=== PATIENT | female | born 1980 | race Caucasian/White ===

== ENCOUNTER 2017-08-07 11:07 | Emergency (ER) | payer OTHER ==
[~2017-08-07] VITALS: Ht 160 cm; Wt 64.4 kg
--- NOTE | 2017-08-07 11:07 | NUR ---
Patient was BIBA and taken to bed 03 via gurney per EMS.
[2017-08-07 11:10] VITALS: BP 110/60
--- NOTE | 2017-08-07 11:10 | NUR ---
37 F BIBA FROM HOME W/5150 HOLD PER [facility] CRISIS TEAM FOR GRAVELY DISABLED ADULT; PT IS CALM AND COOPERATIVE AT THIS TIME; PT IS DISCHEVLED; PT DENIES ANY PLANS TO HURT HER SELF OR OTHERS; PT IS AOX2 TO NAME AND PLACE BUT NOT SITUATION/DATE; PT TALKING IN FULL SENTENCES; PT DENIES ANY FEVER, CP, SOB, OR COUGH AT THIS TIME; PATIENT STATES PAIN OF 0/10 AT THIS TIME; VSS; PATIENT POSITIONED FOR COMFORT; HOB ELEVATED; PT PLACED IN GOWN; PT'S BELONGINGS REMOVED AND STORED BY SECURITY; [address]; SITTER BY BEDSIDE; WILL CONTINUE TO MONITOR; ER MD MADE AWARE OF PT STATUS.
--- NOTE | 2017-08-07 11:10 | NUR ---
PT 'S SKIN IS INTACT
--- NOTE | 2017-08-07 11:58 | NUR ---
Dr. Amezquita evaluating patient at bedside.
--- NOTE | 2017-08-07 12:10 | NUR ---
PATIENT RESTING LAYING SUPINE IN GURNEY; NAD; RR ARE EVEN AND UNLABORED; PT IS CALM AND COOPERATIVE; [address]; SITTER BY BEDSIDE; WILL CONTINUE TO MONITOR
--- NOTE | 2017-08-07 12:50 | NUR ---
PT TO CT VIA [facility].
--- NOTE | 2017-08-07 13:07 | NUR ---
PT RETURNED FROM CT VIA [facility]URTRISH ACCOMPANITED BY ELECTRIC SHOVEL OPERATOR WITHOUT INCIDENT
[2017-08-07] MEDS ORDERED: NACL 0.9% 1,000 ML IV ONE (13:45)
--- NOTE | 2017-08-07 14:40 | NUR ---
SPOKE TO SHEILA FROM [facility]; SHE STATED PT IS ACCEPTED BY MD RIVERA; WILL ARRANGE TRANSPORT
--- NOTE | 2017-08-07 15:00 | NUR ---
Patient to be transferred to [facility]. Is being transferred due to higher level of care. Receiving facility has accepting physician and available space. ER physician has signed transfer form. Patient or responsible constitution party has agreed to transfer and signed form. Patient belongings inventoried and will be sent with patient. Copy of nursing notes, lab reports, EKG, Physicians Orders and X-rays to be sent with patient. Report called to [place] at receiving facility. [facility] ambulance service has been called for transfer. ETA is 45 mins.
--- NOTE | 2017-08-07 15:07 | NUR ---
PATIENT RESTING WITH EYES CLOSED IN GURNEY; NAD; RR ARE EVEN AND UNLABORED; [address]; SITTER BY BEDSIDE; WILL CONTINUE TO MONITOR
[2017-08-07 15:48] VITALS: BP 103/73
--- NOTE | 2017-08-07 15:48 | NUR ---
PT LEFT ER VIA [facility] WITH [facility] BLS; PT BEING TRANSFERRED TO [facility]; PT STABLE; NAD; VSS.
== END 2017-08-07 15:48 | disposition short-term general hospital (02) ==
LOC: MED 11:07
DX: F23 Brief psychotic disorder (principal); E86.0 Dehydration; E11.9 Type 2 diabetes mellitus without complications
CPT/HCPCS: 36415; 70450; 80053; 80305; 81001; 84702; 85025; 93005; 96360; 96361; 99285; G0480; G0482; J7030

== ENCOUNTER 2019-02-08 07:19 | Inpatient (IN) | payer OTHER ==
[~2019-02-08] VITALS: Ht 152.4 cm; Wt 72.6 kg
[2019-02-08] VITALS (27 sets, daily range): BP systolic 96–132; BP diastolic 48–112
--- NOTE | 2019-02-08 07:19 | NUR ---
Patient BIBA ACLS accompanied by Albino ESCOBAR, transferred to bed 10. RN evaluating patient at bedside.
[2019-02-08] MEDS ORDERED: LORazepam 2 MG/ML VIAL ONE ×2 (07:33→07:46)
--- NOTE | 2019-02-08 07:44 | NUR ---
PATIENT PRESENTS TO ED WITH BROUGHT IN BY EMS FROM HOME REPEATED SEIZURES, DENIES PRIOR TRAUMA AT ONSET OF SEIZURE GROUND LEVEL FALL UPON SEIZURE. NO HEMATOMA OR LACERATIONS NOTED AND/OR PALPATED TO SCALP MOVING ALL EXTREMITIES EQUALLY --PUPILS 3 EQUAL AND REACTIVE TO LIGHT SIDE RAILS PADDED --MD AT BEDSIDE . DENIES N/V/D; LUNGS CLEAR BL; HR EVEN AND REGULAR; PT DENIES ANY FEVER, CP, SOB, OR COUGH AT THIS TIME; PATIENT STATES PAIN OF 0/10 AT THIS TIME; VSS; PATIENT POSITIONED FOR COMFORT; HOB ELEVATED; BEDRAILS UP X2; BED DOWN. ER MD MADE AWARE OF PT STATUS.
[2019-02-08] MEDS ORDERED: KETAMINE 10 MG/ML UD SYR **ER IVP ONE ×2 (07:50→08:01)
[2019-02-08] MEDS ORDERED: ROCURONIUM 50 MG/5 ML VIAL IV ONE ×2 (07:50→08:00)
--- NOTE | 2019-02-08 07:53 | NUR ---
Dr. Chahal, RN and RT at bedside for endotracheal intubation.
--- NOTE | 2019-02-08 08:00 | NUR ---
PT INTUBATED BY DR. GRANDA; RT AT BEDSIDE; [facility] HOG STOMACH PREPARER CXR CALLED FOR POST INTUBATION FILM
--- NOTE | 2019-02-08 08:03 | NUR ---
medical technologist chief at bedside for post intubation CXR.
[2019-02-08] MEDS ORDERED: fentaNYL 1 MG in NACL 0.9% 80 ML IV PRN (08:05)
[2019-02-08] MEDS ORDERED: PIPERACILLIN/TAZOBACTAM 3.375 GM in DEXTROSE 5% 50 ML IV ONE (08:05)
[2019-02-08] MEDS ORDERED: VANCOMYCIN 1,000 MG in DEXTROSE 5% 250 ML IV ONE (08:05)
--- NOTE | 2019-02-08 08:06 | NUR ---
WALKED URINE SAMPLE TO LAB, HANDED SAMPLE TO LAB PERSONEL
[2019-02-08] MEDS ORDERED: fentaNYL 0.05 MG/ML VIAL ONE (08:12)
[2019-02-08] MEDS ORDERED: MIDAZOLAM 2 MG/2 ML VIAL ONE (08:14)
[2019-02-08 08:16] LABS: BARBITURATE, URINE NEG. ng/ml (NEG <=200); BENZODIAZEPINE, URINE NEG. ng/mL (NEG <=200); CANNABINOID, URINE NEG. ng/mL (NEG <=50); COCAINE, URINE NEG. ng/mL (NEG <=300); OPIATE, URINE NEG. ng/mL (NEG <=2000); PHENCYCLIDINE SCREEN,URINE NEG. ng/mL (NEG <=25)
[2019-02-08 08:21] LABS: APPEARANCE,URINE CLEAR (CLEAR); BILIRUBIN,URINE NEGATIVE (NEGATIVE); BLOOD, URINE NEGATIVE (NEGATIVE); COLOR,URINE YELLOW (YELLOW); LEUKOCYTE ESTERASE ,URINE NEGATIVE (NEGATIVE); NITRITE, URINE NEGATIVE (NEGATIVE); PH,URINE 6.5 (5.0-9.0); UGLUCOSE NEGATIVE (NEGATIVE)
[2019-02-08 08:31] LABS: BASOPHILS % (AUTO) 0.3 % (0.0-2.0); EOSINOPHILS % (AUTO) 0.2 % (0.0-4.0); HEMATOCRIT 36.8 % (36-48); HEMOGLOBIN 12.7 g/dL (12.0-16.0); LYMPHOCYTES # (AUTO) 1.4 K/uL (2.5-16.5); LYMPHOCYTES % (AUTO) 11.4 % (20.5-51.1); MEAN CORPUSCULAR HEMOGLOBIN 30 pg (27-31); MEAN CORPUSCULAR HGB CONC 35 g/dL (33-37); MEAN CORPUSCULAR VOLUME 86.1 fL (80-94); MONOCYTES # (AUTO) 0.5 K/uL (0.8-1.0); MONOCYTES % (AUTO) 3.8 % (1.7-9.3); NEUTROPHILS # (AUTO) 10.2 K/uL (1.8-7.7); NEUTROPHILS % (AUTO) 84.3 % (42.2-75.2); PLATELET COUNT (AUTO) 378 K/uL (140-450); RED BLOOD CELL COUNT(AUTO) 4.27 MIL/uL (4.20-5.40); RED CELL DISTRIBUTION WIDTH 12.4 % (11.6-13.7); WHITE BLOOD COUNT (AUTO) 12.1 K/uL (4.8-10.8)
[2019-02-08 08:38] LABS: RBC,URINE 0-5 /HPF (0-5); WBC,URINE 0-5 /HPF (0-5)
[2019-02-08] MEDS: MIDAZOLAM MDV 50 MG in NACL 0.9% 40 ML IV PRN ×2 (08:40→14:47)
[2019-02-08] MEDS ORDERED: VANCOMYCIN 1,000 MG VIAL ONE (08:51)
[2019-02-08] MEDS ORDERED: PIPERACILLIN/TAZOBACTAM 3.375 GM VIAL IV ONE (08:51)
--- NOTE | 2019-02-08 08:55 | NUR ---
PT TO CT VIA [facility] RT, LICENSED THERAPIST, EMT, RN REMAINED MONITORED
[2019-02-08 09:01] LABS: ALBUMIN 3.8 g/dL (3.4-5.0); ANION GAP 19.4 (8-16); CARBON DIOXIDE 16.7 mmol/L (21-32); CREATININE 0.6 mg/dL (0.6-1.3); POTASSIUM 3.1 mmol/L (3.5-5.1); TOTAL BILIRUBIN 0.5 mg/dL (0.0-1.0)
[2019-02-08 09:08] LABS: PROTHROMBIN TIME 10.4 secs (10.8-13.4)
[2019-02-08] MEDS ORDERED: NACL 3% 100 ML IV ONE (09:10)
--- NOTE | 2019-02-08 09:13 | NUR ---
Patient returned from CT scan. RN re-evaluating patient at bedside.
[2019-02-08] MEDS ORDERED: NACL 3% 100 ML IV SCH (09:14)
[2019-02-08] MEDS ORDERED: PHENYTOIN 1,000 MG in NACL 0.9% 100 ML IV SCH (09:15)
[2019-02-08] MEDS ORDERED: NACL 0.9% 1,000 ML IV ONE (09:55)
--- NOTE | 2019-02-08 10:09 | NUR ---
CURRENTLY ON VERSED 6MG/HR, FENTANYL 60MCG/HR AIRWAY PROTECTED BY ETT; NO GRIMACE TO MACE NOT BREATHING OVER MACHINE AT THIS TIME BUE SOFT RESTRAINTS---CONTINUOUS MONITORING IN PLACE
[2019-02-08] MEDS ORDERED: ACETAMINOPHEN 325 MG TAB PO PRN (10:10)
[2019-02-08] MEDS ORDERED: HYDROcodone/APAP 7.5/325 MG 1 TAB PO PRN (10:10)
[2019-02-08] MEDS ORDERED: ONDANSETRON 4 MG/2 ML VIAL IVP PRN (10:10)
--- NOTE | 2019-02-08 10:42 | NUR ---
Pt transferred to ICU via [facility] 2 REPORT GIVEN TO REBECCA SUBRAMANIAN--
--- NOTE | 2019-02-08 10:50 | NUR ---
RECEIVED PATIENT FROM ASSOCIATE PROFESSOR OF LAW, BILL, FOR CONTINUITY OF CARE. PATIENT IS SEDATED W/ FENTANYL AND VERSED. SKIN IS INTACT, WARM, DRY. PATIENT HAS PERIPHERAL IV SITE TO R. HAND, 20 GAUGE AND R. AC, 20 GAUGE, ASYMPTOMATIC, PATENT, GOOD BLOOD RETURN. PATIENT HAS ETT TO VENT, SETTINGS ARE AC 12, FIO2 28%, VT 450, PEEP 5, BREATHING EVEN AND UNLABORED. PATIENT IS SR ON MONITOR, FLACC 0. PATIENT HAS LEAL CATHETER IN PLACE TO CLEAR YELLOW URINE. HOB 30 DEGREES, SAFETY ALARMS AND PRECAUTIONS ASSESSED AND IN PLACE. NO SIGNS OF DISTRESS AT THIS TIME, WILL CONTINUE TO MONITOR
--- NOTE | 2019-02-08 10:55 | NUR ---
DR. MONTEJO IS HERE TO SEE PATIENT, DISCUSSED PLAN OF CARE WITH RESIDENT AND PATIENT'S MOTHER, WILL FOLLOW UP WITH ANY ORDERS
[2019-02-08] MEDS ORDERED: METF500S6 PO (11:29)
[2019-02-08] MEDS ORDERED: BENZ-248 PO (11:29)
[2019-02-08] MEDS ORDERED: PRO1 PO (11:29)
[2019-02-08] MEDS ORDERED: ALBU0.0912 IH (11:29)
[2019-02-08] MEDS ORDERED: KEP500 PO (11:29)
[2019-02-08] MEDS ORDERED: DEXTROSE 50% 50 ML SYR IVP PRN (11:40)
--- NOTE | 2019-02-08 11:51 | NUR ---
DR. GREEN AT BEDSIDE TO EXAMINE PATIENT AND SPEAK WITH PATIENT'S MOTHER. WILL FOLLOW UP WITH ANY ORDERS
--- NOTE | 2019-02-08 11:56 | NUR ---
EEG STARTED AT BEDSIDE, NO SIGNS OF DISTRESS NOTED. WILL CONTINUE TO MONITOR
[2019-02-08] MEDS ORDERED: MIDAZOLAM MDV 50 MG in NACL 0.9% 40 ML IV PRN (12:15)
[2019-02-08 12:41] LABS: ANION GAP 15.3 (8-16); CARBON DIOXIDE 19.9 mmol/L (21-32); CREATININE 0.6 mg/dL (0.6-1.3); POTASSIUM 3.2 mmol/L (3.5-5.1)
[2019-02-08 12:51] LABS: CHOL/HDL RATIO 2.5 (1-4.5); FREE T4 (FREE THYROXINE) 1.28 ng/dL (0.76-1.46); PHOSPHORUS 2.7 mg/dL (2.5-4.9); THYROID STIMULATING HORMONE 1.94 uIU/mL (0.34-3.74)
[2019-02-08] MEDS ORDERED: FUROSEMIDE 20 MG/2 ML VIAL IVP SCH (13:00)
[2019-02-08] MEDS: KCL 20 MEQ/WATER INJ PREMIX 100 ML IV SCH ×2 (13:00→13:01)
--- NOTE | 2019-02-08 13:24 | NUR ---
INSERTED NGT 16 FR TO RIGHT NARES, AUSCULTATED FOR CORRECT PLACEMENT, PATIENT TOLERATED WELL.
--- NOTE | 2019-02-08 13:57 | NUR ---
PT NOT AWAKE AT THIS TIME BUT NOT IN ANY DISTRESS/SOB. PT TOLERATING VENT SETTINGS WELL AT THIS TIME. WILL CONTINUE TO MONITOR.
--- NOTE | 2019-02-08 14:12 | NUR ---
DR. ESPINOSA AT BEDSIDE, UPDATED ON PATIENT'S CONDITION. AWARE THAT PATIENT HAS BEEN VOIDING ABOUT 2500ML SINCE ADMITTED TO ICU, STATES TO HOLD LASIX FOR NOW.
[2019-02-08] MEDS: MAG SULF 2000 MG/WATER PREMIX 50 ML IV SCH ×2 (14:20→16:49)
--- NOTE | 2019-02-08 15:13 | NUR ---
DR. PEÑA IN TO SEE AND EXAMINE PATIENT, UPDATED ON PATIENT'S CONDITION. WILL FOLLOW UP ON ANY ORDERS
--- NOTE | 2019-02-08 15:58 | NUR ---
PATIENT'S MOTHER AT BEDSIDE, PROVIDED PATIENT'S MEDS. DR. DONAHUE IS AWARE.
[2019-02-08] MEDS: NACL 0.9% 1,000 ML IV SCH (15:59)
[2019-02-08] MEDS: BLOOD GLUCOSE MONITORING 1 DEV DEV FS SCH ×2 (16:30→20:53)
[2019-02-08 16:43] LABS: ANION GAP 16.9 (8-16); CARBON DIOXIDE 17.5 mmol/L (21-32); CREATININE 0.5 mg/dL (0.6-1.3); POTASSIUM 4.4 mmol/L (3.5-5.1)
--- NOTE | 2019-02-08 17:18 | NUR ---
STARTED PATIENT ON TUBE FEEDING, GLUCERNA AT 10ML/HR. NO SIGNS OF DISTRESS NOTED. WILL CONTINUE TO MONITOR
[2019-02-08] MEDS: PIPER/TAZO 3.375GM/D5W PREMIX 50 ML IV SCH ×2 (17:55→23:55)
--- NOTE | 2019-02-08 19:03 | NUR ---
ENDORSED CONTINUITY OF CARE TO WOOD HEEL FLAP RUBBER RNADALI, NO SIGNS OF DISTRESS AT THIS TIME
--- NOTE | 2019-02-08 19:35 | NUR ---
RECEIVED BEDSIDE REPORT FROM MORNING SHIFT RNEVIN. TEMP 98.3, HR=71, SATING 100%, RR=14, UQ=164/69. PT AROUSES TO LIGHT TOUCH, PUPILS 3mm. ETT TO VENT, FIO2=28%, GI=549, RR=12, FLOW=50L/MIN. UNLABORED BREATHING, LUNGS SOUNDS CLEAR. NGT TO RIGHT NARES, TUBE FEEDING GLUCERNA AT 10CC/HR. BOWEL SOUND ACTIVE X4, RESIDUAL OF 25ML. LEAL IN PLACE, URINE IS CLEAR/YELLOW. SR ON FACTORY MANAGER, RIGHT WRIST 18 GAUGE PIV, AND RIGHT AC 18 GAUGE PIV, INFUSING FENTANYL AT 10ML/HR, AND VERSED AT 6ML/HR, NS AT 100CC/HR. SKIN IS INTACT, NKA, FULL CODE. HOB ABOVE 30 DEG, RASS -3. REPOSITIONED AND VAP ORAL CARE PROVIDED. FALL, ASPIRATION, SEIZURE AND STANDARD PRECAUTIONS MAINTAINED. LEGS ELEVATED WITH PILLOWS.
[2019-02-08] MEDS: fentaNYL 1 MG in NACL 0.9% 80 ML IV PRN (20:19)
[2019-02-08] MEDS: DOCUSATE 100 MG/10 ML UDC PO SCH (20:38)
[2019-02-08] MEDS: levETIRAcetam 100 MG/ML ORASYR PO SCH (20:38)
[2019-02-08] MEDS: FLUPHENAZINE 10 MG PO SCH (20:39)
[2019-02-08] MEDS: BENZTROPINE 1 MG TAB PO SCH (20:39)
[2019-02-08] MEDS: INSULIN LISPRO SLIDING SCALE 100 UNITS/ML VIAL SUBQ PRN (20:53)
[2019-02-08] MEDS ORDERED: levETIRAcetam 500 MG TAB PO SCH (21:00)
[2019-02-08 21:02] LABS: ANION GAP 18.3 (8-16); CREATININE 0.6 mg/dL (0.6-1.3); POTASSIUM 4.3 mmol/L (3.5-5.1)
--- NOTE | 2019-02-08 21:09 | NUR ---
RECEIVED BEDSIDE REPORT FROM MORNING SHIFT RNEVIN. TEMP 98.3, HR=71, SATING 100%, RR=14, EB=640/69. PT AROUSES TO LIGHT TOUCH, PUPILS 3mm. ETT TO VENT, FIO2=28%, EV=763, RR=12, FLOW=50L/MIN. UNLABORED BREATHING, LUNGS SOUNDS CLEAR. NGT TO RIGHT NARES, TUBE FEEDING GLUCERNA AT 10CC/HR. BOWEL SOUND ACTIVE X4, RESIDUAL OF 25ML. LEAL IN PLACE, URINE IS CLEAR/YELLOW. SR ON JUNIOR ACCOUNT MANAGER, RIGHT WRIST 18 GAUGE PIV, AND RIGHT AC 18 GAUGE PIV, INFUSING FENTANYL AT 10ML/HR, AND VERSED AT 6ML/HR, NS AT 100CC/HR. SKIN IS INTACT, NKA, FULL CODE. HOB ABOVE 30 DEG, RASS -3. REPOSITIONED AND VAP ORAL CARE PROVIDED. FALL, ASPIRATION, SEIZURE AND STANDARD PRECAUTIONS MAINTAINED. LEGS ELEVATED WITH PILLOWS. Addendum: 02/08/19 at 2115 by Alyssa Yang RN CORRECT TIME AT 1935
--- NOTE | 2019-02-08 21:16 | NUR ---
CALLED DR. ARREOLA, UPDATED ON CRITICAL LAB SODIUM 117. NO NEW ORDERS AT THIS TIME.
--- NOTE | 2019-02-08 23:20 | NUR ---
CALLED DR. ARREOLA, LAB REQUESTING CLARIFICATION OF CREATININE CLEARANCE. STATED TO BEGIN COLLECTING 24 HOUR URINE COLLECTION, WILL CARRY OUT. Addendum: 02/08/19 at 3893 by Alyssa Yang RN CALLED LAB, SPOKE WITH NIRALI, CONFIRMED 24 HOUR URINE SAMPLE HAS BEEN STARTED AT THIS TIME, WASTED FIRST SAMPLE.
[2019-02-09] VITALS (105 sets, daily range): BP systolic 91–127; BP diastolic 48–80
[2019-02-09 00:37] LABS: ANION GAP 13.7 (8-16); CARBON DIOXIDE 19.3 mmol/L (21-32); CREATININE 0.5 mg/dL (0.6-1.3)
[2019-02-09] MEDS: NACL 0.9% 1,000 ML IV SCH ×2 (02:40→11:50)
--- NOTE | 2019-02-09 03:02 | NUR ---
SLEEPING QUIETY, NS INFUSING AT 100CC/HR, VERSED AT 6ML/HR, AND FENTANYL AT 100MCG/HR. PT IS SLEEPING, AWAKENS TO TOUCH/PHYSICAL SIMULATION.
[2019-02-09] MEDS: fentaNYL 1 MG in NACL 0.9% 80 ML IV PRN ×2 (04:18→17:16)
[2019-02-09 04:21] LABS: BASOPHILS % (AUTO) 0.2 % (0.0-2.0); EOSINOPHILS % (AUTO) 0.3 % (0.0-4.0); HEMATOCRIT 32.9 % (36-48); HEMOGLOBIN 11.3 g/dL (12.0-16.0); LYMPHOCYTES # (AUTO) 1.6 K/uL (2.5-16.5); MEAN CORPUSCULAR HEMOGLOBIN 30 pg (27-31); MEAN CORPUSCULAR HGB CONC 34 g/dL (33-37); MEAN CORPUSCULAR VOLUME 87.4 fL (80-94); MONOCYTES # (AUTO) 1.5 K/uL (0.8-1.0); MONOCYTES % (AUTO) 10.9 % (1.7-9.3); NEUTROPHILS # (AUTO) 10.3 K/uL (1.8-7.7); NEUTROPHILS % (AUTO) 76.6 % (42.2-75.2); PLATELET COUNT (AUTO) 332 K/uL (140-450); RED BLOOD CELL COUNT(AUTO) 3.76 MIL/uL (4.20-5.40); RED CELL DISTRIBUTION WIDTH 13.1 % (11.6-13.7); WHITE BLOOD COUNT (AUTO) 13.5 K/uL (4.8-10.8)
[2019-02-09 04:48] LABS: CARBON DIOXIDE 18.6 mmol/L (21-32); CREATININE 0.5 mg/dL (0.6-1.3); POTASSIUM 3.6 mmol/L (3.5-5.1)
[2019-02-09 04:56] LABS: MAGNESIUM 2.4 mg/dL (1.8-2.4); PHOSPHORUS 2.5 mg/dL (2.5-4.9)
[2019-02-09 04:58] LABS: BILIRUBIN,DIRECT 0.1 mg/dL (0.0-0.3); TOTAL BILIRUBIN 0.4 mg/dL (0.0-1.0)
--- NOTE | 2019-02-09 05:20 | NUR ---
CRITICAL LAB, SODIUM = 120, TRENDING UPWARD. DR. ARREOLA PUT ORDER FOR RESTRAINTS, DUE TO PATIENT ATTEMPTING TO REMOVE LINES.
[2019-02-09] MEDS: PIPER/TAZO 3.375GM/D5W PREMIX 50 ML IV SCH (05:26)
[2019-02-09 05:28] LABS: CKMB RELATIVE INDEX 0.7 (0.0-2.5); CREATINE KINASE MB 19.1 ng/mL (0-3.6)
--- NOTE | 2019-02-09 05:37 | NUR ---
AM CARES, VAP, LEAL CATH PROVIDED TO PT. REPOSITIONED, PT CURRENTLY ON RESTRAINTS AT THIS TIME, FENTANYL AT 100MCG/HR, VERSED AT 7ML/HR AND ZOSYN IVBP ON NS. PT OPENS EYES SPONTANEOUSLY.
--- NOTE | 2019-02-09 06:59 | NUR ---
RECEIVED PT ON CARESCAPE ON DOCUMENTED SETTINGS, ALARMS ARE FUNCTIONAL, PTS ET TUBE SIZE 7.5 IS SECURE [address] FAST IN PLACE, PT IN HF ASLEEP BS CL\DIM PT IS RESTRAINED BMV HOB VENT PLUGGED INTO RED OUTLET
[2019-02-09] MEDS: MIDAZOLAM MDV 100 MG in NACL 0.9% 80 ML IV PRN ×2 (07:06→18:47)
[2019-02-09] MEDS: BLOOD GLUCOSE MONITORING 1 DEV DEV FS SCH ×4 (07:11→20:49)
--- NOTE | 2019-02-09 07:13 | NUR ---
RECEIVED BEDSIDE REPORT FROM SYSTEMS DEVELOPMENT MANAGER RN, ADALI, FOR CONTINUITY OF CARE. PATIENT IS SEDATED, FOLLOWS SIMPLE COMMANDS. PATIENT SKIN IS WARM, DRY, AFEBRILE, INTACT. SHE HAS A PERIPHERAL IV SITE TO R. WRIST 20 GAUGE AND R. AC 20 GAUGE, BOTH ASYMPTOMATIC AND PATENT. PATIENT IS ETT TO VENT, SETTINGS ARE AC 12, FIO2 30, VT 450, PEEP 5, BREATHING IS EVEN AND UNLABORED. SR ON MONITOR, FLACC 0. PATIENT HAS NGT IN R. NARES TO TUBE FEEDING, GLUCERNA AT 30ML/HR, 50ML RESIDUAL NOTED. PATIENT HAS LEAL CATHETER IN PLACE. HOB IS 30 DEGREES, SAFETY PRECAUTIONS AND ALARMS ASSESSED AND ENFORCED. NO SIGNS OF DISTRESS AT THIS TIME. PATIENT WAS EDUCATED ON RELAXATION TECHNIQUE, DEMONSTRATED UNDERSTANDING. WILL CONTINUE TO MONITOR
--- NOTE | 2019-02-09 07:23 | NUR ---
GAVE BEDSIDE REPORT TO MORNING SHIFT EVIN SUBRAMANIAN.
--- NOTE | 2019-02-09 07:52 | NUR ---
ORAL CARE PROVIDED, PATIENT EDUCATED ON VAP ORAL CARE, PATIENT TOLERATED WELL, REINFORCEMENT NEEDED.
[2019-02-09] MEDS: PANTOPRAZOLE 40 MG INJ VIAL IVP SCH (08:07)
[2019-02-09] MEDS: CALCIUM CARB/VIT-D 500 MG/200 IU 1 TAB PO SCH ×3 (08:07→17:14)
[2019-02-09] MEDS: metFORMIN 500 MG TAB PO SCH ×2 (08:07→17:14)
[2019-02-09] MEDS: levETIRAcetam 100 MG/ML ORASYR PO SCH ×2 (08:07→20:39)
--- NOTE | 2019-02-09 08:17 | NUR ---
PATIENT HAS BEEN SCREENED AND CATEGORIZED HIGH NUTRITION RISK. PATIENT WILL BE SEEN WITHIN 1-2 DAYS OF ADMISSION. 02/09/[address]
--- NOTE | 2019-02-09 08:22 | NUR ---
SCHEDULED MEDS ADMINISTERED, PATIENT TOLERATED WELL.
--- NOTE | 2019-02-09 08:25 | NUR ---
DR. VOSS AND RESIDENT PHYSICIANS AT BEDSIDE, UPDATED ON PATIENT'S CONDITION. WILL FOLLOW UP ON ANY ORDERS.
[2019-02-09] MEDS: DOCUSATE 100 MG/10 ML UDC PO SCH ×2 (08:37→20:39)
--- NOTE | 2019-02-09 08:50 | NUR ---
PATIENT'S MOTHER IS HERE TO SEE PATIENT, UPDATED ON PATIENT'S CONDITION.
--- NOTE | 2019-02-09 10:03 | NUR ---
DR. ESPINOSA AND RESIDENT PHYSICIANS AT BEDSIDE.
[2019-02-09 10:10] LABS: ANION GAP 16.1 (8-16); CARBON DIOXIDE 19.5 mmol/L (21-32); CREATININE 0.5 mg/dL (0.6-1.3); POTASSIUM 3.6 mmol/L (3.5-5.1)
--- NOTE | 2019-02-09 11:53 | NUR ---
ORAL CARE PROVIDED, PATIENT TOLERATED WELL.
[2019-02-09] MEDS: PIPERACILLIN/TAZOBACTAM 3.375 GM in NACL 0.9% 50 ML IV SCH ×3 (12:08→23:56)
[2019-02-09] MEDS: INSULIN LISPRO SLIDING SCALE 100 UNITS/ML VIAL SUBQ PRN (12:11)
--- NOTE | 2019-02-09 13:09 | NUR ---
DR. MONTEJO IN TO SEE PATIENT, UPDATED ON PATIENT'S CONDITION, WILL FOLLOW UP ON ANY ORDERS
[2019-02-09 13:41] LABS: CARBON DIOXIDE 19.7 mmol/L (21-32); CREATININE 0.6 mg/dL (0.6-1.3); POTASSIUM 3.7 mmol/L (3.5-5.1)
--- NOTE | 2019-02-09 14:54 | NUR ---
02/09/19 RD INITIAL ASSESSMENT COMPLETED PLEASE REFER TO NUTRITION ASSESSMENT UNDER CARE ACTIVITY FOR ESTIMATED NUTRITIONAL NEEDS. 1. RECOMMEND GLUCERNA AT 40 ML/HR -THIS WILL PROVIDE A VOLUME OF 960 ML, 1152 KCAL, AND 57.6 GRAM OF PROTEIN. IT MEETS 86% OF PT�S ENERGY NEEDS AND 100% OF PROTEIN NEEDS. 2. RD TO FOLLOW-UP 2-3 DAYS, HIGH RISK BHUMIKA YEUNG, RD
[2019-02-09 16:30] LABS: ANION GAP 12.3 (8-16); CARBON DIOXIDE 22.5 mmol/L (21-32); CREATININE 0.7 mg/dL (0.6-1.3); POTASSIUM 3.8 mmol/L (3.5-5.1)
--- NOTE | 2019-02-09 19:23 | NUR ---
RECEIVED BEDSIDE REPORT FROM MORNING SHIFT RN, EVIN, FOR CONTINUITY OF CARE. PT IS CALM/OPENS EYES SPONTANEOUSLY. ON ETT TO VENT, FIO2=28, AH=371, RR=12, FLOW=50L/MIN, PEEP=5. LUNG SOUNDS CLEAR/DIMINISHED ON UPPER BILATERAL LOBES. VSS TEMP 99.1, 107/66, RR=14, SATING 100%, HR=89. SR ON TOP ICER. RIGHT NARES NGT TO FEED, AT 40CC/HR GLUCERNA 1.2. RESIDUAL OF 75ML/HR. FLUSHED. AUSCULTATED FOR PROPER PLACEMENT. BOWEL SOUNDS ACTIVE X4. LEAL IN PLACE, 24 HOUR IN COLLECTION CONTINUED. RFA 18 GAUGE AND RIGHT WRIST 18 GAUGE PIV. INFUSING FENTANYL AT 10ML/HR, AND VERSED AT 9ML/HR, AND NS INFUSING AT 60CC/HR. RASS -3, AROUSES TO VOICE/TOUCH. FLACC 0. SKIN IS NORMAL IN COLOR, INTACT. FULL CODE, NKA, SEIZURE, FALL, AND ASPIRATION PRECAUTIONS MAINTAINED.
--- NOTE | 2019-02-09 19:30 | NUR ---
ENDORSED CONTINUITY OF CARE TO CABINET FINISHER RNADALI, NO SIGNS OF DISTRESS AT THIS TIME
--- NOTE | 2019-02-09 20:18 | NUR ---
ETIENNE FROM LAB AT BEDSIDE, COLLECTED SAMPLE.
[2019-02-09 20:35] LABS: ANION GAP 15.2 (8-16); CARBON DIOXIDE 19.5 mmol/L (21-32); CREATININE 0.7 mg/dL (0.6-1.3); POTASSIUM 3.7 mmol/L (3.5-5.1)
[2019-02-09] MEDS: BENZTROPINE 1 MG TAB PO SCH (20:40)
[2019-02-09] MEDS: FLUPHENAZINE 10 MG PO SCH (20:40)
--- NOTE | 2019-02-09 21:58 | NUR ---
CALLED DR. ARREOLA, UPDATED ON PT CONDITION REGARDING MOMENTS OF WAKING UP AND ATTEMPTS TO PULL TUBING. PT CURRENTLY AT A RASS -3, VERSED DRIP 12MG/HR AND FENTANYL AT 150MCG/HR. DR. ARREOLA TO UPDATE WITH NEW ORDERS.
[2019-02-09] MEDS ORDERED: LORazepam 2 MG/ML VIAL IVP PRN (22:00)
--- NOTE | 2019-02-09 23:30 | NUR ---
24 HOUR URINE SAMPLE COLLECTION COMPLETED, TURNED IN TO LAB. PROVIDED ACCOUNTING ADVISORY SERVICES MANAGER RAY WITH CURRENT HEIGHT AND WEIGHT OF PATIENT.
[2019-02-10] VITALS (86 sets, daily range): BP systolic 88–139; BP diastolic 32–88
--- NOTE | 2019-02-10 00:45 | NUR ---
AM CARES, LEAL CATH, VAP ORAL CARE PROVIDED TO PT. SUCTIONING X2 PT TOLERATED WELL. REPOSITIONED. TUBE FEEDING AT 40CC/HR. VERSED SET AT 12ML/HR AND FENTANYL AT 100MCG/HR. MAINTAINED RASS -3 AT THIS TIME.
[2019-02-10] MEDS: fentaNYL 1 MG in NACL 0.9% 80 ML IV PRN ×2 (00:47→10:45)
[2019-02-10] MEDS: NACL 0.9% 1,000 ML IV SCH (02:21)
[2019-02-10] MEDS: MIDAZOLAM MDV 100 MG in NACL 0.9% 80 ML IV PRN ×2 (04:19→17:55)
--- NOTE | 2019-02-10 04:34 | NUR ---
PT AWAKENED, KICKING LEGS AND ATTEMPTED TO REMOVE HANDS FROM RESTRAINTS. PT SEEMS TO BE ABLE TO UNDERSTAND COMMANDS AND ATTEMPTS TO COMMUNICATE VERBALLY. SPOKE WITH PT AND REORIENTED HER TO HOSPITAL/ICU. RAY FROM LAB AT BEDSIDE TO COLLECT BLOOD DRAW, WAS SUCCESSFUL.
[2019-02-10] MEDS: PIPERACILLIN/TAZOBACTAM 3.375 GM in NACL 0.9% 50 ML IV SCH (05:12)
[2019-02-10 06:02] LABS: MAGNESIUM 2.3 mg/dL (1.8-2.4)
--- NOTE | 2019-02-10 06:20 | NUR ---
DR. GREEN IN TO SEE PATIENT, UPDATED ON PT CONDITION WILL FOLLOW UP WITH NEW ORDERS.
--- NOTE | 2019-02-10 06:27 | NUR ---
rec'd pt on carescape vent settings ac12 vt 450 peep5 fio2 28% alarms on and audible and ambu bag at side of vent and vent is plugged into red outlet, b\s are clear bilaterally sxn pt small amt of clear secretions, pt is orally intubated with 7.5 et tube secured with anchor fast at 23 cm and skin integrity is intact pt is resting with no signs of distress noted
[2019-02-10] MEDS: BLOOD GLUCOSE MONITORING 1 DEV DEV FS SCH ×5 (06:29→21:14)
[2019-02-10 06:48] LABS: BASOPHILS # (AUTO) 0.1 K/uL (0.00-0.22); BASOPHILS % (AUTO) 0.6 % (0.0-2.0); EOSINOPHILS % (AUTO) 0.2 % (0.0-4.0); HEMATOCRIT 33.1 % (36-48); HEMOGLOBIN 11.3 g/dL (12.0-16.0); LYMPHOCYTES % (AUTO) 22.4 % (20.5-51.1); MEAN CORPUSCULAR HEMOGLOBIN 30 pg (27-31); MEAN CORPUSCULAR HGB CONC 34 g/dL (33-37); MEAN CORPUSCULAR VOLUME 88.8 fL (80-94); MONOCYTES # (AUTO) 1.1 K/uL (0.8-1.0); MONOCYTES % (AUTO) 11.6 % (1.7-9.3); NEUTROPHILS # (AUTO) 5.9 K/uL (1.8-7.7); NEUTROPHILS % (AUTO) 65.2 % (42.2-75.2); PLATELET COUNT (AUTO) 305 K/uL (140-450); RED BLOOD CELL COUNT(AUTO) 3.73 MIL/uL (4.20-5.40); RED CELL DISTRIBUTION WIDTH 13.2 % (11.6-13.7); WHITE BLOOD COUNT (AUTO) 9.1 K/uL (4.8-10.8)
[2019-02-10] MEDS ORDERED: SODIUM PHOS / POTASSIUM PHOS 1 PKT PDR NG SCH (07:00)
--- NOTE | 2019-02-10 07:15 | NUR ---
RECEIVED REPORT FROM CLOCKMAKER NURSE AT BEDSIDE, PT IS SEDATED, RASS -3, VSS, FLACC 0, ETT TO VENT WITH AC SETTING FIO2 28%, VT 450, R 12, PEEP 5, NO S/S OF DISTRESS, CLEAR LUNG SOUNDS DILLON. O2 SAT 99%, SR ON AUDIT CLERK, SOFT ABDOMEN WITH ACTIVE BOWEL SOUNDS, NGT TO RIGHT NARES, FEEDING WITH GLUCERNA AT 40ML/HR, PLACEMENT CHECKED, 20ML RESIDUALS NOTED, LEAL CATHETER IN PLACE WITH CLEAR YELLOW URINE VIA GRAVITY, SKIN IS INTACT, WARM AND DRY TO TOUCH, ABLE TO MOVE ALL EXTREMITIES, ON SOFT RESTRAIN, IV SITE TO RIGHT AC, 20GA, RUNNING VERSED AT 11MG/HR, AND FENTANYL AT 100MCG/HR, IV SITE TO RIGHT HAND, 20GA, RUNNING NS AT 10ML/HR. HOB ELEVATED TO 30 DEGREES, SAFETY MEASURES IN PLACE, WILL CONTINUE TO MONITOR.
--- NOTE | 2019-02-10 07:15 | NUR ---
GAVE BEDSIDE REPORT TO MORNING SHIFT MARYCRUZ SUBRAMANIAN.
[2019-02-10] MEDS: DOCUSATE 100 MG/10 ML UDC PO SCH ×2 (08:03→21:14)
[2019-02-10] MEDS: metFORMIN 500 MG TAB PO SCH ×2 (08:03→16:45)
[2019-02-10] MEDS: levETIRAcetam 100 MG/ML ORASYR PO SCH ×2 (08:03→21:14)
[2019-02-10] MEDS: CALCIUM CARB/VIT-D 500 MG/200 IU 1 TAB PO SCH ×3 (08:03→16:45)
[2019-02-10] MEDS: PANTOPRAZOLE 40 MG INJ VIAL IVP SCH (08:03)
--- NOTE | 2019-02-10 08:15 | NUR ---
PT IS WAKE UP, TRYING TO PULL OUT OF TUBE, EXPLAINED AND REORIENTED TO PT, ORAL CARE PROVIDED, POSITION CHANGED FOR OFF LOAD PRESSURE.
--- NOTE | 2019-02-10 09:00 | NUR ---
SCHEDULED MEDICATION GIVEN VIA NGT, PT TOLERATED WELL.
[2019-02-10 10:57] LABS: ANION GAP 12.7 (8-16); CARBON DIOXIDE 21.9 mmol/L (21-32); POTASSIUM 3.6 mmol/L (3.5-5.1)
[2019-02-10 11:01] LABS: CREATININE 0.6 mg/dL (0.6-1.3)
--- NOTE | 2019-02-10 11:15 | NUR ---
dr. rodriguez at bedside changed vent settings to cpap 5 ps 8 to wean pt abg at 1230 then get nif,vc,rsbi and call dr. rodriguez with results jesús zarate at bedside
--- NOTE | 2019-02-10 11:15 | NUR ---
DR. BYRNE CAME IN TO SEE PT AT BEDSIDE, WILL FOLLOW UP WITH NEW ORDERS.
--- NOTE | 2019-02-10 12:30 | NUR ---
ABG RESULTS GIVEN TO VIA PHONE AND NIF AND RSBI RESULTS LEAVE PT ON CPAP FOR ANOTHER HOUR THEN REPEAT NIF AND RSBI AND CALL DR. MONTEJO WITH RESULTS
--- NOTE | 2019-02-10 14:41 | NUR ---
PT IS BACK ON AC MODE PT HAS GONE APENIC TWICE WITH VENT GOING BACK TO AC MODE. PT IS NOW SLEEPING MARILYNN FLOWERS NOTIFIED PT FAILED CPAP TRIAL. WILL ENDORSE TO INSPECTOR ELEVATORS TO ENDORSE TO DAY SHIFT FOR 02/11/19.
--- NOTE | 2019-02-10 15:15 | NUR ---
CASSIE BYRNE, RT UPDATED PT'S CONDITION, PT COULD NOT TOLERATED WELL ON THE CPAP AT THIS TIME, OK TO RESUME SEDATION AND GT FEEDING.
--- NOTE | 2019-02-10 18:00 | NUR ---
PT IS RESTING IN BED, OPEN EYES WHEN CALLING HER NAME, NO S/S OF DISTRESS, VSS, DENIES PAIN, IV SITE TO RIGHT HAND LEAKAGE NOTED, REMOVED IV LINE TO RIGHT HAND.
--- NOTE | 2019-02-10 19:10 | NUR ---
REPORT GIVEN TO DUMP ATTENDANT NURSE FOR CONTINUE OF CARE, PT IS IN STABLE CONDITION AT THIS TIME.
--- NOTE | 2019-02-10 19:25 | NUR ---
RECEIVED BEDSIDE REPORT FROM MORNING SHIFT RNMARYCRUZ, FOR CONTINUITY OF CARE. PT IS RELAXED, OPENS EYES SPONTANEOUSLY. ETT TO VENT, SETTINGS, AC FIO2=28%, VT=436, RR=12, FLOW=40L/MIN, PEEP5. LUNG SOUND CLEAR ON UPPER/LOWER BILATERAL LOBES. SR ON SPECIAL SYSTEMS TECHNICIAN. BP =112/59, SATING 100%, RR=12, HR=87. NGT TO RIGHT NARES, TUBE FEEDING GLUCERNA 1.2 AT 40CC/HR. NO RESIDUAL. LEAL CATH IN PLACE, URINE IS CLEAR/YELLOW. RIGHT AC 20 GAUGE PIV INFUSING FENTANYL AT 100MCG/HR, VERSED AT 11ML/HR, AND NS AT 10CC/HR. FULL CODE, NKA, HOB ELEVATED ABOVE 30 DEG. FALL, ASPIRATION, AND SEIZURE PRECAUTIONS MAINTAINED. SKIN IS NORMAL IN COLOR/INTACT. FLACC 0. SOFT WRIST RESTRAINTS. STANDARD PRECAUTIONS. ORAL CARE PROVIDED, PT TOLERATED WELL.
[2019-02-10] MEDS: FLUPHENAZINE 10 MG PO SCH (21:14)
[2019-02-10] MEDS: BENZTROPINE 1 MG TAB PO SCH (21:14)
--- NOTE | 2019-02-10 22:30 | NUR ---
PT IS RELAXED/CALM, OPENS EYES SPONTANEOUSLY BUT DOES NOT APPEAR AGITATED. VSS. HOB ELEVATED. SOFT WRIST RESTRAINTS IN PLACE.
[2019-02-11] VITALS (62 sets, daily range): BP systolic 82–147; BP diastolic 51–83
[2019-02-11] MEDS: fentaNYL 1 MG in NACL 0.9% 80 ML IV PRN ×2 (01:18→11:07)
--- NOTE | 2019-02-11 02:07 | NUR ---
VENT CHECK. PT ASLEEP NO SOB OR DISTRESS NOTED. WILL CONTINUE TO MONITOR
[2019-02-11] MEDS: NACL 0.9% 1,000 ML IV SCH (02:24)
[2019-02-11] MEDS: MIDAZOLAM MDV 100 MG in NACL 0.9% 80 ML IV PRN (03:44)
--- NOTE | 2019-02-11 05:10 | NUR ---
ZANE AT BEDSIDE TO COLLECT BLOOD SAMPLE, PT CALM AND COOPERATIVE.
--- NOTE | 2019-02-11 05:22 | NUR ---
AM CARES, LEAL CATH, VAP ORAL KIT. PT RELAXED AT THIS TIME. FRESH LINENS PROVIDED. FLACC =0, OPENS EYES SPONTANEOUSLY. NO BM. URINE THKTRV=192, JAILENE IN COLOR. HOB ELEVATED, SOFT RESTRAINTS PLACED BACK ON.
--- NOTE | 2019-02-11 06:27 | NUR ---
DR. GREEN AT BEDSIDE TO SEE PATIENT, UPDATED ON CONDITION.
[2019-02-11 06:45] LABS: ANION GAP 12.7 (8-16); CARBON DIOXIDE 23.9 mmol/L (21-32); CREATININE 0.5 mg/dL (0.6-1.3); POTASSIUM 3.6 mmol/L (3.5-5.1)
[2019-02-11 06:55] LABS: PHOSPHORUS 2.8 mg/dL (2.5-4.9)
--- NOTE | 2019-02-11 07:17 | NUR ---
RECEIVED PATIENT ON CURRENT SETTINGS: AC/VC 450 RATE 12 PEEP 5 FIO2 24%. PATIENT INTUBATED WITH AN ET TUBE SIZE 7.5 SECURED AT 23 CM AT THE LIP WITH AN ANCHOR FAST. ET TUBE IS AT MIDLINE AND OBSERVED NO LIP REDNESS OR BREAKDOWN. B/S: CLEAR BILATERALLY. SUCTIONED PATIENT AND RECEIVED SCANT, WHITE, THIN SECRETIONS. AMBU BAG AT BEDSIDE. VENT SETTINGS AND ALARMS ARE VERIFIED.
--- NOTE | 2019-02-11 07:23 | NUR ---
GAVE BEDSIDE REPORT TO MORNING SHIFT RNPATITO FOR CONTINUITY OF CARE.
--- NOTE | 2019-02-11 07:30 | NUR ---
received report from pm nurse.
[2019-02-11] MEDS: BLOOD GLUCOSE MONITORING 1 DEV DEV FS SCH ×4 (07:34→21:16)
[2019-02-11] MEDS: INSULIN LISPRO SLIDING SCALE 100 UNITS/ML VIAL SUBQ PRN ×2 (07:35→21:17)
--- NOTE | 2019-02-11 08:00 | NUR ---
PT OPENS EYES SPONTANEOUSLY. SR ON LABORATORY MECHANICAL TECHNICIAN. PT ABLE TO FOLLOW COMMANDS. ETT TO VENT, SETTINGS, AC FIO2=24%, GV=735, RR=12, FLOW=40L/MIN, PEEP5. LUNG SOUND CLEAR .NGT TO RIGHT NARES, TUBE FEEDING GLUCERNA 1.2 AT 40CC/HR. 10CC RESIDUAL. RETURNED IT BACK.LEAL CATH IN PLACE, URINE IS CLEAR/YELLOW. RIGHT AC 20 GAUGE IV INFUSING FENTANYL AT 100MCG/HR, VERSED AT 11ML/HR, AND NS AT 10CC/HR.RASS-3. HOB ELEVATED ABOVE 30 DEG. FALL, ASPIRATION, AND SEIZURE PRECAUTIONS MAINTAINED. REORIENTED PT. SKIN INTACT. FLACC 0. SOFT WRIST RESTRAINTS. STANDARD PRECAUTIONS.
[2019-02-11] MEDS: DOCUSATE 100 MG/10 ML UDC PO SCH ×2 (08:38→20:55)
[2019-02-11] MEDS: PANTOPRAZOLE 40 MG INJ VIAL IVP SCH (08:38)
[2019-02-11] MEDS: CALCIUM CARB/VIT-D 500 MG/200 IU 1 TAB PO SCH ×3 (08:38→16:52)
[2019-02-11] MEDS: levETIRAcetam 100 MG/ML ORASYR PO SCH ×2 (08:38→20:55)
[2019-02-11] MEDS: metFORMIN 500 MG TAB PO SCH ×2 (08:38→16:52)
--- NOTE | 2019-02-11 09:15 | NUR ---
PLACED PATIENT ONTO CPAP 5 PS 10. COMMUNICATED TO PATIENT THAT SHE WILL NEED TO DO SOME BREATHING ON HER OWN. PATIENT RESPONDS TO COMMUNICATION BUT IS NOT FULLY AWAKE.
[2019-02-11 09:17] LABS: BASOPHILS % (AUTO) 0.5 % (0.0-2.0); EOSINOPHILS # (AUTO) 0.1 K/uL (0-0.4); EOSINOPHILS % (AUTO) 1.6 % (0.0-4.0); HEMATOCRIT 32.1 % (36-48); HEMOGLOBIN 10.8 g/dL (12.0-16.0); LYMPHOCYTES # (AUTO) 1.8 K/uL (2.5-16.5); LYMPHOCYTES % (AUTO) 23.3 % (20.5-51.1); MEAN CORPUSCULAR HEMOGLOBIN 30 pg (27-31); MEAN CORPUSCULAR HGB CONC 34 g/dL (33-37); MEAN CORPUSCULAR VOLUME 89.3 fL (80-94); MONOCYTES # (AUTO) 0.8 K/uL (0.8-1.0); MONOCYTES % (AUTO) 9.8 % (1.7-9.3); NEUTROPHILS # (AUTO) 5.1 K/uL (1.8-7.7); NEUTROPHILS % (AUTO) 64.8 % (42.2-75.2); PLATELET COUNT (AUTO) 324 K/uL (140-450); RED CELL DISTRIBUTION WIDTH 13.2 % (11.6-13.7); WHITE BLOOD COUNT (AUTO) 7.9 K/uL (4.8-10.8)
--- NOTE | 2019-02-11 09:48 | NUR ---
PATIENT CONTINUES TO GO APNEIC AND VENT RETURNS TO AC/VC MODE. ATTEMPTED CPAP 3 TIMES. WILL TRY AGAIN LATER IN THE DAY AND DISCUSS SEDATION WITH THE NURSE.
[2019-02-11] MEDS ORDERED: PROBIOTIC SCREEN 1 EA MISC MC PRN (10:25)
--- NOTE | 2019-02-11 11:25 | NUR ---
started pt on sedation vacation, rt at bedside.
--- NOTE | 2019-02-11 12:55 | NUR ---
CALLED TO ICU BECAUSE PATIENT SELF EXTUBATED. PATIENT AWAKE AND ALERT WHEN ENTERED. SPO2 95% HEART RATE 112. PLACED PATIENT ONTO 2L/M VIA NASAL CANNULA. DR. DONAHUE AWARE THAT PATIENT SELF EXTUBATED. WILL CONTINUE TO MONITOR.
--- NOTE | 2019-02-11 12:55 | NUR ---
PT SELF EXTUBATED, PULLED OUT F/C, CHARGE NURSE EMPTIED LEAL BAG 700 CC. CALLED RT.
--- NOTE | 2019-02-11 14:20 | NUR ---
ASSISTED PT TO BEDSIDE COMMODE, PT HAD MODERATE AMOUNT OF LOOSE BM, CLEANED PT, ASSISTED PT BACK TO HER BED.
[2019-02-11] MEDS ORDERED: DEXT 5% / NACL 0.45% 1,000 ML IV SCH (17:35)
--- NOTE | 2019-02-11 18:00 | NUR ---
ASSISTED PT TO BEDSIDE COMMODE, PT VOIDS 500 MLS URINE.
[2019-02-11] MEDS: DEXT 5% /NACL 0.9% 1,000 ML IV SCH (18:31)
[2019-02-11] MEDS: ALBUTEROL SULFATE/IPRATROPIU 3 ML SOL IH SCH (18:38)
--- NOTE | 2019-02-11 19:04 | NUR ---
* ST NOTE * Pt seen at bedside. Pt asleep upon entering room. Upon awakening, pt alert and cooperative, reporting no c/o pain at this time. Bedside dysphagia and oral mechanism exams completed. See evaluation report for further details. Pt tolerating 4/4 alternating PO trials of regular solid saltine crackers as well as 6/6 alternating PO trials of successive sips of thin liquid apple juice via a straw, all w/o s/s of aspiration. Pt however later presenting with delayed residual cough after PO intake. Pt thus tolerating 2/2 alternating PO trials of nectar-thickened apple juice as well as 2/2 alternating PO trials of puree apple sauce, all 3-5 CCs at a time via a spoon w/o s/s of aspiration or choking. Pt potentially presenting with residual cough after PO intake 2/2 to pt s/p extubation 8 hours ago. Because pt still presenting with delayed residual cough, it is recommended pt's PO diet consistency be modified to mechanical soft-ground textures w/nectar-thickened liquids for all meals, w/strict aspiration precautions in place. Pt's PO diet consistency may be upgraded to mechanical soft textures w/thin liquids as tolerated. Pt and caregiver/nsg education completed re: aspiration precautions and safe swallow compensatory strategies pt and caregivers could utilize to aid pt w/swallow function, w/pt indifferent but caregiver/nsg verbalizing understanding and agreement w/clinician's recommendations. No further ST follow up recommended at this time. Pt and caregiver/nsg education completed re: results of evaluation; benefits of abiding by aspiration precautions and recommended PO diet consistency; and prognosis for improvement; with pt and caregiver/nsg verbalizing understanding and agreement w/clinician's recommendations. Recommend: - PO DIET CONSISTENCY OF MECHANICAL SOFT-GROUND TEXTURES W/NECTAR-THICKENED LIQUIDS for all meals - WHOLE PILL MEDICATION ADMINISTRATION OR CRUSHED IN PUREE TEXTURES - MAINTAIN STRICT ASPIRATION PRECAUTIONS DURING PT'S PO INTAKE 2/2 TO PT S/P EXTUBATION, DX OF ID & HX OF SEIZURE DISORDER - CUE/REMIND PT OF ASPIRATION PRECAUTIONS PRIOR TO & DURING SELF-FEEDING 2/2 TO PT'S IMPULSIVITY W/SELF-FEEDING - CUE/REMIND PT TO SIT UP AT 80-90 DEGREE ANGLE DURING PO INTAKE, EAT/DRINK SLOWLY, USE SMALL BITES/SIPS, AND TO ALTERNATE BTWN SOLIDS & LIQUIDS - NSG MAY UPGRADE PT'S DIET TOLERATED TO MECHANICAL SOFT TEXTURES W/THIN LIQUIDS No further ST follow up recommended at this time. NOMS Level 3 Time In/Out 18:00 - 18:45
--- NOTE | 2019-02-11 19:20 | NUR ---
REPORT GIVEN TO PM NURSE. PT ON RA, O2 SATS 98%, VITALS STABLE AT THIS MOMENT.
--- NOTE | 2019-02-11 19:30 | NUR ---
RECEIVED REPORT FROM MORNING RN, PATITO, FOR CONTINUITY OF CARE. VS STABLE AT THIS TIME. AFEBRILE. ABLE TO FOLLOW COMMANDS. ABLE TO MAKE SIMPLE NEEDS KNOWN. PT COOPERATIVE. DENIES PAIN AT THIS TIME. LUNG SOUNDS CLEAR. PT IN ROOM AIR. RESPIRATIONS ARE EVEN AND UNLABORED. CHEST RISE SYMMETRIC. S1+S2 HEARD. SR TO ST ON MONITOR. PULSES ARE PALPABLE IN ALL EXTREMITIES. ITEM REPAIR MANAGER IN PLACE. ABDOMEN ROUND, SOFT AND NON-DISTENDED. DENIES N/V. NO DIFFICULTY SWALLOWING. PT ABLE TO USE BEDPAN. RECEIVED PT WITH D5NS AT 60ML/HR. PT STILL HAS A PERIPHERAL IV ACCESS ON RIGHT AC 18G. HOB KEPT AT 30 DEGREES. ALL SAFETY PRECAUTIONS ARE IN PLACE. WILL CONTINUE TO MONITOR PT.
[2019-02-11] MEDS: FLUPHENAZINE 10 MG PO SCH (20:55)
[2019-02-11] MEDS: BENZTROPINE 1 MG TAB PO SCH (20:55)
--- NOTE | 2019-02-11 21:56 | NUR ---
DR. ARREOLA IN THE UNIT. UPDATED HIM REGARDING THE PT.
--- NOTE | 2019-02-11 22:10 | NUR ---
ASSISTED PT TO USE BEDPAN AT THIS TIME BUT NO OUTPUT NOTED
[2019-02-12] VITALS (8 sets, daily range): BP systolic 92–141; BP diastolic 44–107
--- NOTE | 2019-02-12 00:03 | NUR ---
NO CHANGE IN PT'S CONDITION AT THIS TIME. PT EYES ARE CLOSED. RESPIRATIONS ARE EVEN AND UNLABORED. PT COUGHS INTERMITTENTLY. KEPT HOB AT 30 DEGREES. CALL LIGHT WITHIN REACH. WILL CONTINUE TO MONITOR PT AND PT'S RESPIRATORY STATUS.
[2019-02-12] MEDS: ALBUTEROL SULFATE/IPRATROPIU 3 ML SOL IH SCH ×3 (01:00→13:36)
--- NOTE | 2019-02-12 02:56 | NUR ---
VS STABLE. RESPIRATIONS EVEN AND UNLABORED. NO CHANGE IN PT'S CONDITION AT THIS TIME. DENIES ANY PAIN OR ANY DISCOMFORT.
--- NOTE | 2019-02-12 04:00 | NUR ---
PT TURNED AND REPOSITIONED. PM CARE PROVIDED. PT HAD A VERY SMALL BM THAT IS DARK GREEN IN COLOR. KEPT HOB AT 30 DEGREES. VS STABLE.
[2019-02-12 06:15] LABS: ANION GAP 14.9 (8-16); CARBON DIOXIDE 24.6 mmol/L (21-32); CREATININE 0.6 mg/dL (0.6-1.3); POTASSIUM 3.5 mmol/L (3.5-5.1)
--- NOTE | 2019-02-12 06:20 | NUR ---
DR. GREEN AT BEDSIDE. UPDATED HER REGARDING PT. WILL FOLLOW-UP WITH ANY NEW ORDERS.
[2019-02-12 06:21] LABS: BASOPHILS % (AUTO) 0.6 % (0.0-2.0); EOSINOPHILS # (AUTO) 0.1 K/uL (0-0.4); EOSINOPHILS % (AUTO) 2.1 % (0.0-4.0); HEMATOCRIT 32.4 % (36-48); HEMOGLOBIN 11.1 g/dL (12.0-16.0); LYMPHOCYTES # (AUTO) 1.6 K/uL (2.5-16.5); LYMPHOCYTES % (AUTO) 24.8 % (20.5-51.1); MEAN CORPUSCULAR HEMOGLOBIN 31 pg (27-31); MEAN CORPUSCULAR HGB CONC 34 g/dL (33-37); MEAN CORPUSCULAR VOLUME 89.1 fL (80-94); MONOCYTES # (AUTO) 0.7 K/uL (0.8-1.0); NEUTROPHILS # (AUTO) 4.1 K/uL (1.8-7.7); NEUTROPHILS % (AUTO) 62.5 % (42.2-75.2); PLATELET COUNT (AUTO) 355 K/uL (140-450); RED BLOOD CELL COUNT(AUTO) 3.64 MIL/uL (4.20-5.40); WHITE BLOOD COUNT (AUTO) 6.6 K/uL (4.8-10.8)
[2019-02-12] MEDS: BLOOD GLUCOSE MONITORING 1 DEV DEV FS SCH ×4 (06:36→20:53)
[2019-02-12] MEDS: INSULIN LISPRO SLIDING SCALE 100 UNITS/ML VIAL SUBQ PRN ×2 (06:36→20:53)
--- NOTE | 2019-02-12 07:10 | NUR ---
REPORT GIVEN TO MORNING RN, PATITO, FOR CONTINUITY OF CARE. VS STABLE AT THIS TIME.
--- NOTE | 2019-02-12 07:25 | NUR ---
RECEIVED REPORT FROM PM RN FOR CONTINUITY OF CARE. PT AWAKE, ALERT. ABLE TO FOLLOW SIMPLE COMMANDS BUT UNABLE TO ANSWER HER AGE CORRECTLY . BEDSIDE MONITOR SHOWS SR. LUNG SOUNDS CLEAR. PT IN ROOM AIR. RESPIRATIONS ARE EVEN AND UNLABORED. CHEST RISE SYMMETRIC.ABDOMEN SOFT AND NON-DISTENDED. DENIES N/V. PT RUNNING D5NS AT 60ML/HR ON PERIPHERAL IV ACCESS ON RIGHT AC 18G. HOB KEPT AT 30 DEGREES. ALL SAFETY PRECAUTIONS ARE IN PLACE. WILL CONTINUE TO MONITOR PT.
--- NOTE | 2019-02-12 08:00 | NUR ---
IV TO RIGHT AC NOTED LEAKING, INSERTED NEW IV TO RIGHT HAND #20
--- NOTE | 2019-02-12 08:30 | NUR ---
OFFERED PT BREAKFAST TRAY, PT ATE 50% OF THE FOOD.
[2019-02-12] MEDS: levETIRAcetam 100 MG/ML ORASYR PO SCH ×2 (08:37→20:38)
[2019-02-12] MEDS: PANTOPRAZOLE 40 MG INJ VIAL IVP SCH (08:38)
[2019-02-12] MEDS: DOCUSATE 100 MG/10 ML UDC PO SCH ×2 (08:38→20:38)
[2019-02-12] MEDS: CALCIUM CARB/VIT-D 500 MG/200 IU 1 TAB PO SCH (08:38)
[2019-02-12] MEDS: metFORMIN 500 MG TAB PO SCH ×2 (08:38→17:48)
--- NOTE | 2019-02-12 08:50 | NUR ---
ASSISTED PT GOT OUT OF BED, PT VOIDS 400 CC YELLOW URINE. CLEANED PT.
[2019-02-12] MEDS: DEXT 5% /NACL 0.9% 1,000 ML IV SCH (10:25)
--- NOTE | 2019-02-12 10:35 | NUR ---
CALLED RESIDENT [phone], NOTIFIED DR. PT GOT OUT OF BED SEVERAL TIMES TO PEE, BUT UNABLE TO VOID. PT STATED SHE WANTED TO PEE BUT SHE CAN NOT, PT ALSO SAID SHE FEELS PAINFUL WHEN SHE URINATE. WILL FOLLOW UP .
--- NOTE | 2019-02-12 10:40 | NUR ---
INSERTED STRAIGHT CATH, GOT URINE 300 CC, SAMPLE SENT TO LAB.
[2019-02-12] MEDS: guaiFENesin DM 200/20 MG-10 ML 10 ML UDC PO PRN ×2 (11:25→20:37)
[2019-02-12 12:11] LABS: APPEARANCE,URINE SL CLOUDY (CLEAR); BILIRUBIN,URINE NEGATIVE (NEGATIVE); BLOOD, URINE TRACE-I (NEGATIVE); COLOR,URINE YELLOW (YELLOW); LEUKOCYTE ESTERASE ,URINE NEGATIVE (NEGATIVE); NITRITE, URINE NEGATIVE (NEGATIVE); PH,URINE 6.5 (5.0-9.0); UGLUCOSE TRACE (NEGATIVE)
[2019-02-12 12:22] LABS: URINE AMORPHOUS URATE 2+ /HPF (None Seen); WBC,URINE 0-5 /HPF (0-5)
--- NOTE | 2019-02-12 12:59 | NUR ---
PT SLEEPING IN BED. NO S/S OF RESPIRATORY DISTRESS NOTED. VITALS STABLE AT THIS MOMENT.
--- NOTE | 2019-02-12 13:16 | NUR ---
02/12/19 RD FOLLOW UP COMPLETED PLEASE REFER TO NUTRITION ASSESSMENT UNDER CARE ACTIVITY FOR ESTIMATED NUTRITIONAL NEEDS. 1. RECOMMEND MECHANICAL SOFT CCHO DIET 2. RD TO FOLLOW-UP 3-5 DAYS, MODERATE RISK BHUMIKA YEUNG RD
--- NOTE | 2019-02-12 13:24 | NUR ---
PT AWAKE, ATE 50 % OF LUNCH TRAY.
--- NOTE | 2019-02-12 13:44 | NUR ---
CALLED RESIDENT [phone], DR. DONAHUE ANSWERED PHONE, NOTIFIED PT TRIED TO GET OUT BED TO PEE BUT PT UNABLE TO PEE. ALSO NOTIFIED PT KEEP MOVING HER MOUTH LIKE CHEWING SOMETHING IN HER MOUTH. PT ALSO KEEPS SHAKING HER LEGS.WILL FOLLOW UP.
[2019-02-12] MEDS ORDERED: QUEtiapine FUMARATE 25 MG TAB PO SCH (14:00)
--- NOTE | 2019-02-12 14:05 | NUR ---
ASSISTED PT TO BEDSIDE COMMODE, PT VOIDS 250 CC AND HAD LOOSE BM, CLEANED PT, ASSISTED PT BACK TO BED.
--- NOTE | 2019-02-12 14:30 | NUR ---
PATIENT GET OUT OF BED SAID SHE WANT TO GO TO THE BATH ROOM. SHE HAS BED SIDE COMMODE . SHE PULLED OUT THE EKG LEAD IV LINE AND REFUSED TO HAVE IT PUT BACK AT THE TIME.
--- NOTE | 2019-02-12 17:00 | NUR ---
transferred pt to tele 124 A, report gave to Guerita SUBRAMANIAN. PT VITALS STABLE AT THIS MOMENT. ON RA,pt walked to her bed without difficulty. Addendum: 02/12/19 at 1708 by Patti Regan RN pt walked from hallway to her bed without difficulty.
--- NOTE | 2019-02-12 17:01 | NUR ---
VITALS ARE 98.5F, 111/62BP, 98O2, 20R, 74P
--- NOTE | 2019-02-12 17:01 | NUR ---
RECEIVED BEDSIDE REPORT FROM ICU NURSE PATITO. PATIENT IS AWAKE, ALERT AND ORIENTEDX1. NO SIGNS OF DISTRESS ON RA. SKIN IS INTACT. FALL RISK PROTOCOL IN PLACE, PATIENT HAS HX SEIZURES, WEAKNESS. PATIENT IS CONTINENT. CALL LIGHT WITHIN REACH. BED IN LOW POSITION. SEIZURE PRECAUTIONS, ASP PRECAUTIONS. WILL CONTINUE TO MONITOR THE PATIENT.
--- NOTE | 2019-02-12 17:54 | NUR ---
PATIENT CURRENTLY EATING. NO SIGNS OF DISTRESS. WILL CONTINUE TO MONITOR THE PATIENT
--- NOTE | 2019-02-12 18:09 | NUR ---
PATIENT TRANSFERRED TO ROOM 110A TO BE WITH SITTER. PATIENT HAS HX SEIZURES AND CONTINUES TO STAND UP EVERY 10MINS. PATIENT HAS WEAKNESS AND REMOVES LINES. SITTER AT BEDSIDE
--- NOTE | 2019-02-12 19:00 | NUR ---
GAVE BEDSIDE REPORT TO NIGHTSHIFT NURSE. PATIENT ENDORSED IN STABLE CONDITION.
--- NOTE | 2019-02-12 19:01 | NUR ---
RECEIVED REPORT FROM MORNING SHIFT NURSE. PATIENT LYING DOWN IN BED COMFORTABLY. NO DISTRESS NOTED. AAOX2, CALM, COOPERATIVE, ABLE TO FOLLOW COMMANDS. IV SITE INTACT, PATENT, AND INFUSING IVF PER MD ORDERS. LUNGS CTA ON ALL LOBES. ABDOMEN SOFT, NON-DISTENDED. SKIN INTACT. REVIEWED PLAN OF CARE WITH PATIENT. PATIENT VERBALIZED UNDERSTANDING. SAFETY MEASURES IN PLACE, CALL LIGHT WITHIN REACH. WILL CONTINUE TO MONITOR.
[2019-02-12] MEDS: BENZTROPINE 1 MG TAB PO SCH (20:38)
[2019-02-12] MEDS: FLUPHENAZINE 10 MG PO SCH (20:43)
--- NOTE | 2019-02-12 20:56 | NUR ---
PATIENT LYING DOWN IN BED COMFORTABLY. NO DISTRESS NOTED. DENIES ANY PAIN. SCHEDULED MEDICATIONS DUE GIVEN. WILL CONTINUE TO MONITOR.
--- NOTE | 2019-02-12 22:49 | NUR ---
PATIENT PULLED OUT IV LINE ON RIGHT HAND. WILL INSERT NEW IV LINE. WILL CONTINUE TO MONITOR.
[2019-02-13] VITALS: BP 123/71
--- NOTE | 2019-02-13 00:11 | NUR ---
PATIENT LYING DOWN IN BED COMFORTABLY. NO DISTRESS NOTED. DENIES ANY PAIN. CONDITION UNCHANGED. INTERMITTENTLY PACES AROUND ROOM AND GOES BACK TO BED. WILL CONTINUE TO MONITOR.
--- NOTE | 2019-02-13 02:11 | NUR ---
PATIENT SITTING IN BED WATCHING TV. NO DISTRESS NOTED. CONDITION UNCHANGED. WILL CONTINUE TO MONITOR.
[2019-02-13] MEDS: DEXT 5% /NACL 0.9% 1,000 ML IV SCH (03:05)
[2019-02-13] MEDS: guaiFENesin DM 200/20 MG-10 ML 10 ML UDC PO PRN (03:41)
--- NOTE | 2019-02-13 03:43 | NUR ---
PATIENT LYING DOWN IN BED WITH INTERMITTENT DRY COUGH. COUGH MEDICATION GIVEN AT THIS TIME. WILL CONTINUE TO MONITOR.
[2019-02-13 04:00] VITALS: BP 110/67
--- NOTE | 2019-02-13 04:24 | NUR ---
PATIENT KEEPS GETTING UP TO BATHROOM AND INTERMITTENT COUGH. IV SITE NOT CONNECTED AT THIS TIME PATIENT GETS UP SUDDENLY AND WILL PULL OUT IV LINE. WILL CONTINUE TO MONITOR.
--- NOTE | 2019-02-13 05:57 | NUR ---
PATIENT LYING DOWN IN BED SLEEPING, AROUSABLE BY VOICE. CONDITION UNCHANGED. WILL CONTINUE TO MONITOR.
--- NOTE | 2019-02-13 06:45 | NUR ---
PATIENT SITTING IN BED COMFORTABLY. NO DISTRESS NOTED. WILL CONTINUE TO MONITOR.
--- NOTE | 2019-02-13 07:20 | NUR ---
GAVE REPORT TO FIXED INCOME TRADING VICE PRESIDENT NURSE FOR CONTINUITY OF CARE. PATIENT IN STABLE CONDITION.
--- NOTE | 2019-02-13 07:22 | NUR ---
RECEIVED BEDSIDE REPORT FROM COUNTY SUPERINTENDENT OF SCHOOLS NURSE. PATIENT LYING IN BED, NO DISTRESS NOTED. AAOX2. ABLE TO FOLLOW SIMPLE COMMANDS. LUNGS CTA. ABDOMEN SOFT, NON-DISTENDED. SKIN INTACT. IV SITE PATENT AND ASYMPTOMATIC, INFUSING IVF PER MD ORDERS. UPDATED BOARD AND EXPLAINED POC. ALL SAFETY MEASURES IN PLACE, CALL LIGHT WITHIN REACH. WILL CONTINUE TO MONITOR. Addendum: 02/13/19 at 0912 by Karlene Mandujano Meng, RN SALINE LOCKED
[2019-02-13 07:29] LABS: BASOPHILS % (AUTO) 0.7 % (0.0-2.0); EOSINOPHILS # (AUTO) 0.2 K/uL (0-0.4); EOSINOPHILS % (AUTO) 3.8 % (0.0-4.0); HEMATOCRIT 31.9 % (36-48); HEMOGLOBIN 10.8 g/dL (12.0-16.0); LYMPHOCYTES # (AUTO) 1.8 K/uL (2.5-16.5); LYMPHOCYTES % (AUTO) 28.4 % (20.5-51.1); MEAN CORPUSCULAR HEMOGLOBIN 30 pg (27-31); MEAN CORPUSCULAR HGB CONC 34 g/dL (33-37); MONOCYTES # (AUTO) 0.7 K/uL (0.8-1.0); NEUTROPHILS # (AUTO) 3.5 K/uL (1.8-7.7); NEUTROPHILS % (AUTO) 56.1 % (42.2-75.2); PLATELET COUNT (AUTO) 402 K/uL (140-450); RED BLOOD CELL COUNT(AUTO) 3.63 MIL/uL (4.20-5.40); RED CELL DISTRIBUTION WIDTH 12.7 % (11.6-13.7); WHITE BLOOD COUNT (AUTO) 6.2 K/uL (4.8-10.8)
[2019-02-13 07:35] LABS: MAGNESIUM 1.9 mg/dL (1.8-2.4); PHOSPHORUS 4.7 mg/dL (2.5-4.9)
[2019-02-13 07:36] LABS: ANION GAP 17.6 (8-16); CARBON DIOXIDE 21.9 mmol/L (21-32); CREATININE 0.5 mg/dL (0.6-1.3); POTASSIUM 3.5 mmol/L (3.5-5.1)
[2019-02-13 08:00] VITALS: BP 109/78
[2019-02-13] MEDS: metFORMIN 500 MG TAB PO SCH ×2 (08:28→17:25)
[2019-02-13] MEDS: BLOOD GLUCOSE MONITORING 1 DEV DEV FS SCH ×4 (08:29→21:41)
[2019-02-13] MEDS: INSULIN LISPRO SLIDING SCALE 100 UNITS/ML VIAL SUBQ PRN (08:29)
[2019-02-13] MEDS: PANTOPRAZOLE 40 MG INJ VIAL IVP SCH (09:00)
[2019-02-13] MEDS: levETIRAcetam 100 MG/ML ORASYR PO SCH ×2 (09:39→21:39)
[2019-02-13] MEDS: DOCUSATE 100 MG/10 ML UDC PO SCH ×2 (09:39→21:39)
--- NOTE | 2019-02-13 09:46 | NUR ---
PT FOUND WITH IV PULLED OUT. NO IV ACCESS FOR PROTONIX. NOTIFIED DR. DONAHUE. PER DR. DONAHUE, PT DOES NOT NEED IV ACCESS- WILL BE D/C TO [facility].
--- NOTE | 2019-02-13 10:29 | NUR ---
[facility] CALLED [phone] FOR TRANSFER REFERRAL, PER ---- ADMISSION NOT IN YET TODAY, THEY WILL GIVE THEM MESSAGE, WILL FAX INFO.
[2019-02-13] MEDS ORDERED: QUET50TA PO (11:20)
--- NOTE | 2019-02-13 11:24 | NUR ---
PATIENT RESTING IN BED, AWAKE. NO C/O PAIN OR DISCOMFORT. NO S/S DISTRESS. ALL SAFETY PRECAUTIONS IN PLACE, WILL CONTINUE TO MONITOR.
[2019-02-13] MEDS ORDERED: QUEtiapine FUMARATE 25 MG TAB PO SCH (11:30)
[2019-02-13 12:00] VITALS: BP 117/67
--- NOTE | 2019-02-13 12:48 | NUR ---
FAXED REFERRAL REQUEST TO [facility]. AND SPOKE TO DAPHNIE [phone] REGARDING TRANSFER TOMORROW. Addendum: 02/13/19 at 1324 by Mirella White RN REQUEST TO TRANSFER TODAY 02/13/2019) , NOT TOMORROW.
--- NOTE | 2019-02-13 13:13 | NUR ---
LEFT MESSAGE FOR MOTHER DAYANA [phone] REGARDING PLANS TO TRANSFER TO [facility] FOR PHYSICAL THERAPY. ASKED MOTHER TO CALL BACK TO CONFIRM.
--- NOTE | 2019-02-13 13:57 | NUR ---
LEFT ANOTHER MESSAGE FOR MOTHER DAYANA [phone]. ASKED HER TO CALL BACK REGARDING PLAN TO TRANSFER TO [facility].
--- NOTE | 2019-02-13 14:46 | NUR ---
DAPHNIE FROM [facility] CALLED REGARDING PLANS TO TRANSFER. NOTIFIED DAPHNIE THAT WE LEFT MESSAGE FOR MOTHER X2. MOTHER HAS TO BE AWARE AND AGREE TO TRANSFER BEFORE WE ARE ABLE TO SET UP TRANSPORT. DAPHNIE VERBALIZED UNDERSTANDING.
--- NOTE | 2019-02-13 15:27 | NUR ---
PT SLEEPING IN BED, RESPIRATIONS EVEN AND UNLABORED. ALL SAFETY PRECAUTIONS IN PLACE, WILL CONTINUE TO MONITOR.
--- NOTE | 2019-02-13 15:37 | NUR ---
PATIENT STATES HER MOTHER'S NUMBER IS [phone]. CALLED THIS NUMBER AND LEFT VOICEMAIL ASKING MOTHER TO CALL BACK.
[2019-02-13 16:00] VITALS: BP 106/69
--- NOTE | 2019-02-13 17:29 | NUR ---
ADMINISTERED SCHEDULED MEDICATIONS. PT IS AOX1.
--- NOTE | 2019-02-13 18:42 | NUR ---
CALLED [phone] AGAIN AND LEFT MESSAGE ASKING FOR MOTHER TO CALL BACK.
--- NOTE | 2019-02-13 19:07 | NUR ---
ENDORSED POC TO SLOT MACHINE KEY PERSON RN. PT IN STABLE CONDITION.
--- NOTE | 2019-02-13 19:10 | NUR ---
RECEIVED BEDSIDE REPORT FROM DAY SHIFT RN, PATIENT IN STABLE CONDITION, BED LOW, CALL LIGHT IN REACH, WILL CONTINUE TO MONITOR.
[2019-02-13 20:00] VITALS: BP 113/44
[2019-02-13] MEDS: QUEtiapine FUMARATE 25 MG TAB PO SCH (21:39)
[2019-02-13] MEDS: BENZTROPINE 1 MG TAB PO SCH (21:40)
[2019-02-13] MEDS: FLUPHENAZINE 10 MG PO SCH (21:40)
--- NOTE | 2019-02-13 21:48 | NUR ---
ADMINISTERED SCHEDULED MEDICATION, PATIENT TOLERATED WELL, NO SIGNS FO DISTRESS ON RA, BED LOW, CALL LIGHT IN REACH. WILL CONTINUE TO MONITOR.
--- NOTE | 2019-02-13 23:30 | NUR ---
PATIENT SITTING DOWN WATCHING TV. INTERMITTENT DRY COUGH. NO DISTRESS NOTED. CONDITION UNCHANGED. WILL CONTINUE TO MONITOR.
[2019-02-14] VITALS: BP 105/69
--- NOTE | 2019-02-14 01:40 | NUR ---
PATIENT LYING DOWN IN BED SLEEPING, AROUSABLE BY VOICE. NO DISTRESS NOTED. CONDITION UNCHANGED. WILL CONTINUE TO MONITOR.
--- NOTE | 2019-02-14 03:32 | NUR ---
PATIENT LYING DOWN IN BED. NO DISTRESS NOTED. CONDITION UNCHANGED. WILL CONTINUE TO MONITOR.
[2019-02-14 04:00] VITALS: BP 105/69
--- NOTE | 2019-02-14 05:25 | NUR ---
PATIENT LYING DOWN IN BED SLEEPING, AROUSABLE BY VOICE. CONDITION UNCHANGED. NO CALL BACKS FROM MOTHER AFTER LEAVING MESSAGES ON CONTACT NUMBERS LISTED ON FACE SHEET. WILL CONTINUE TO MONITOR.
[2019-02-14] MEDS: BLOOD GLUCOSE MONITORING 1 DEV DEV FS SCH (06:59)
--- NOTE | 2019-02-14 07:13 | NUR ---
GAVE BEDSIDE REPORT TO DAY SHIFT RN, PATIENT RESTING IN BED, ENDORSED PATIENT IN STABLE CONDITION.
--- NOTE | 2019-02-14 07:15 | NUR ---
RECEIVED BEDSIDE REPORT FROM PHOTOTYPESETTING EQUIPMENT MONITOR NURSE. PATIENT LYING IN BED, NO DISTRESS NOTED. AAOX1. ABLE TO FOLLOW SIMPLE COMMANDS. LUNGS CTA. ABDOMEN SOFT, NON-DISTENDED. SKIN INTACT. NO IV ACCESS- IS AWARE. UPDATED BOARD AND EXPLAINED POC. ALL SAFETY MEASURES IN PLACE, CALL LIGHT WITHIN REACH. WILL CONTINUE TO MONITOR.
[2019-02-14] MEDS: metFORMIN 500 MG TAB PO SCH (07:59)
[2019-02-14 08:00] VITALS: BP 106/59
[2019-02-14] MEDS: QUEtiapine FUMARATE 25 MG TAB PO SCH (08:00)
[2019-02-14] MEDS: DOCUSATE 100 MG/10 ML UDC PO SCH (08:00)
[2019-02-14] MEDS: levETIRAcetam 100 MG/ML ORASYR PO SCH (08:00)
--- NOTE | 2019-02-14 08:05 | NUR ---
ADMINISTERED SCHEDULED MEDICATIONS. PT OBEY TO FOLLOW SIMPLE COMMANDS BUT REMAINS AOX1.
[2019-02-14] MEDS: PANTOPRAZOLE 40 MG INJ VIAL IVP SCH (08:07)
--- NOTE | 2019-02-14 09:39 | NUR ---
CALLED [facility] AND ASKED TO SPEAK WITH DAPHNIE TO ARRANGE TRANSPORT. PER FABIAN FROM [facility], SHE WILL SENT ALESHA MESSAGE ASKING HIM TO CALL ME BACK.
--- NOTE | 2019-02-14 10:25 | NUR ---
CALLED FABIAN FROM [employer]. SHE WILL SENT ANOTHER MESSAGE TO DAPHNIE. PER FABIAN, NO OTHER CM AVAILABLE [facility]. Addendum: 02/14/19 at 1031 by Karlene Mandujano Meng, RN [facility] SHE WILL SEND ANOTHER MESSAGE TO DAPHNIE. PER FABIAN, NO OTHER [facility]
--- NOTE | 2019-02-14 10:48 | NUR ---
ROUNDED ON PT. PT IS SLEEPING IN BED, RESPIRATIONS EVEN AND UNLABORED. ALL SAFETY PRECAUTIONS IN PLACE, WILL CONTINUE TO MONITOR.
[2019-02-14 12:00] VITALS: BP 94/62
--- NOTE | 2019-02-14 12:40 | NUR ---
DISCHARGE PAPERWORK, INCLUDING DISCUSSION OF POC AT [facility], GIVEN TO PATIENT. NEW PRESCRIPTION/MEDICATION TEACHING AND MEDICATION RECONCILIATION TEACHING GIVEN TO PATIENT. PATIENT VERBALIZED UNDERSTANDING BUT CONTINUED REINFORCEMENT IS NECESSARY.
--- NOTE | 2019-02-14 13:44 | NUR ---
[facility] AND GAVE REPORT TO GAB ACOSTA. REVIEWED PT CC, DX, PMHX, CODE STATUS, ALLERGIES, IMAGING, PROCEDURES, MEDICATIONS, AND CONTINUED POC AT [facility]. ANSWERED ALL OF AKRLA�S QUESTIONS. GAB ACOSTA VERBALIZED COMPLETE UNDERSTANDING OF PATIENT�S POC.
--- NOTE | 2019-02-14 14:19 | NUR ---
CALLED MOTHER LOYDA AND INFORMED HER OF PLANS TO TRANSFER TO [facility] AT 1600 TODAY. FAMILY MEMBER AVAILABLE TO TRANSLATE AND RELAY INFORMATION TO MOTHER. MOTHER VERBALIZED COMPLETE UNDERSTANDING.
--- NOTE | 2019-02-14 15:20 | NUR ---
[facility] HAVE LEFT WITH PT. PT IN STABLE CONDITION.
== END 2019-02-14 15:20 | DRG 208 ==
LOC: MED 07:19 → EDUNIT# 07:19 → MIC 10:09 → MTU 02-12 17:00
PROVIDERS: ADMIT General Practice; ATTEND General Practice
PROC: 5A1945Z Respiratory Ventilation, 24-96 Consecutive Hours (ICD-10-PCS; principal; 2019-02-08)
PROC: 0BH17EZ Insertion of Endotracheal Airway into Trachea, Via Natural or Artificial Opening (ICD-10-PCS; 2019-02-08)
PROC: 4A00X4Z Measurement of Central Nervous Electrical Activity, External Approach (ICD-10-PCS; 2019-02-08)
DX: J96.21 Acute and chronic respiratory failure with hypoxia (principal); G93.41 Metabolic encephalopathy; E87.1 Hypo-osmolality and hyponatremia; M62.82 Rhabdomyolysis; E44.0 Moderate protein-calorie malnutrition; E87.2 Acidosis; E66.9 Obesity, unspecified; Z71.3 Dietary counseling and surveillance; E11.65 Type 2 diabetes mellitus with hyperglycemia; E83.42 Hypomagnesemia; D72.829 Elevated white blood cell count, unspecified; E87.6 Hypokalemia; F31.9 Bipolar disorder, unspecified; G40.901 Epilepsy, unspecified, not intractable, with status epilepticus; E83.51 Hypocalcemia; F17.210 Nicotine dependence, cigarettes, uncomplicated; F20.9 Schizophrenia, unspecified; J45.909 Unspecified asthma, uncomplicated; Z79.84 Long term (current) use of oral hypoglycemic drugs; Z79.899 Other long term (current) drug therapy; Z68.31 Body mass index [BMI] 31.0-31.9, adult
CPT/HCPCS: 31500; 36415; 36600; 70450; 71045; 72125; 80048; 80053; 80076; 80173; 80305; 81001; 82150; 82533; 82550; 82553; 82575; 82803; 82948; 83036; 83605; 83690; 83735; 83874; 83880; 83930; 83935; 84100; 84300; 84439; 84443; 84484; 85025; 85610; 85730; 87040; 87070; 87081; 87086; 87205; 92526; 93005; 94003; 94640; 95816; 96361; 96365; 96375; 97110; 97116; 97530; 99291; C1758; C9113; J1165; J1644; J1815; J1940; J2060; J2250; J2543; J3010; J3370; J3475; J3480; J3490; J7030; J7042; J7060; J7620; Q0092

== ENCOUNTER 2019-02-21 20:16 | Emergency (ER) | payer OTHER ==
[~2019-02-21] VITALS: Ht 160 cm; Wt 68.9 kg
[~2019-02-21 20:16] MED LIST: ALBU0.0912 IH; BENZ-248 PO; KEP500 PO; METF500S6 PO; PRO1 PO; QUET50TA PO
[2019-02-21 20:22] VITALS: BP 125/68
--- NOTE | 2019-02-21 20:25 | NUR ---
TO LOBBY A/W BED, AMBULATORY, VSS
--- NOTE | 2019-02-21 20:48 | NUR ---
Pt taken to bed 2.
--- NOTE | 2019-02-21 21:00 | NUR ---
PT BIB MOTHER C/O RIGHT HAND POINTER FINGER PAIN, PT STATES PAIN IS SUDDEN ONSET, 2/10 PAIN. PT STATES FEELS LIKE SOMETHING IS COMING OUT OF HER FINGER, DENIES TRAUMA. NO REDNESS, SWELLING OR DEFORMITY NOTED TO SITE. DENIES N/V/D, CP OR SOB. PT IN GOWN, IN BED; BED IN LOWER LOCKED POSITION. WILL CONTINUE TO MONITOR. PENDING ER MD COELLO. SEIZURES PRECUATIONS IN PLACE. PMH: DM, SEIZURES RX: SEE MED LIST
[2019-02-21] MEDS ORDERED: KETOROLAC 60 MG/2 ML VIAL IM ONE (21:45)
--- NOTE | 2019-02-21 22:31 | NUR ---
Dr. Conn evaluating patient at bedside.
[2019-02-21 22:40] VITALS: BP 125/68
--- NOTE | 2019-02-21 22:40 | NUR ---
DISCHARGE PAPERWORK GIVEN. 0/10 PAIN. A&OX4. VSS. RX OF MOTRIN GIVEN. SIDE EFFECTS EXPLAINED. PT VERBALIZED UNDERSTANDING OF DC INSTRUCTIONS. ALL QUESTIONS ANSWERED.
== END 2019-02-21 22:40 | disposition home or self-care (01) ==
LOC: MED 20:16
DX: R51 Headache (principal); M79.642 Pain in left hand; E11.9 Type 2 diabetes mellitus without complications; F20.9 Schizophrenia, unspecified; Z79.84 Long term (current) use of oral hypoglycemic drugs; Z79.899 Other long term (current) drug therapy
CPT/HCPCS: 81002; 81025; 96372; 99283; J1885

== ENCOUNTER 2019-02-25 17:43 | Emergency (ER) | payer OTHER ==
--- NOTE | 2019-02-25 17:48 | NUR ---
FIRST CALL, NOT IN LOBBY OR OUTSIDE [phone]
--- NOTE | 2019-02-25 17:48 | NUR ---
Wilder krueger in [facility] - 02/25/19 at 1749 by JON FIRST CALL [phone], NOT IN LOBBY OR OUTSIDE
--- NOTE | 2019-02-25 18:03 | NUR ---
2ND CALL, NOT IN LOBBY
--- NOTE | 2019-02-25 18:11 | NUR ---
3rd call pt no in lobby or outside. PATIENT LEFT WITHOUT BEING SEEN BY DR. deluca. NO FURTHER CARE PROVIDED FOR PATIENT.
== END 2019-02-25 17:50 | disposition left against medical advice (07) ==
LOC: MED 17:43
DX: Z53.21 Procedure and treatment not carried out due to patient leaving prior to being seen by health care provider (principal)

== ENCOUNTER 2019-02-25 20:15 | Emergency (ER) | payer OTHER ==
[~2019-02-25] VITALS: Ht 160 cm; Wt 68.9 kg
[2019-02-25 20:30] VITALS: BP 118/82
--- NOTE | 2019-02-25 20:34 | NUR ---
PT SENT TO LOBBY VSS, W/ MOTHER, URINE SAMPLE PROVIDED.
--- NOTE | 2019-02-25 21:40 | NUR ---
PT AMBULATED TO ER 08 Addendum: 02/25/19 at 2141 by MEDWL PT AMBULATED TO ER BED
--- NOTE | 2019-02-25 22:00 | NUR ---
38 YO F BIB MOM PRESENTS TO THE ER C/O SHORTNESS OF BREATH AND "COLD SWEATS" X 2 WEEKS. PT IS A POOR HISTORIAN AND CHANGES HER ANSWERS TO QUESTIONS OFTEN. SHE HAS A HX OF SCHIZOPHRENIA. PT STATES SHE FEELS "MUMPS" IN HER FACE AND SHOULDERS. NO SOB OBSERVED. -- SPO2: 99%. NO INCREASED WOB. BREATHING EVEN, UNLABORED. LUNGS CTA. -- BS: 122 -- SKIN PINK, DRY, WARM PMH-- DM, SEIZURES, SCHIZOPHRENIA PT IS ALERT, COOPERATIVE, FIDGITING, RESTLESS. VSS. NO ACUTE DISTRESS AT THIS TIME. POSITIONED FOR COMFORT. HOB ELEVATED. SIDE RAIL UP X1. BED IN LOWEST POSITION.
[2019-02-25 23:20] VITALS: BP 130/82
== END 2019-02-25 23:20 | disposition home or self-care (01) ==
LOC: MED 20:15
DX: F41.9 Anxiety disorder, unspecified (principal); R03.0 Elevated blood-pressure reading, without diagnosis of hypertension; E11.9 Type 2 diabetes mellitus without complications; F20.9 Schizophrenia, unspecified; Z79.84 Long term (current) use of oral hypoglycemic drugs; Z79.899 Other long term (current) drug therapy
CPT/HCPCS: 81002; 81025; 99283

== ENCOUNTER 2019-03-04 11:24 | Emergency (ER) | payer OTHER ==
[~2019-03-04] VITALS: Ht 157.5 cm; Wt 69.9 kg
[2019-03-04 11:33] VITALS: BP 92/59
--- NOTE | 2019-03-04 11:39 | NUR ---
PATIENT AMBULATED TO BED 6
--- NOTE | 2019-03-04 11:40 | NUR ---
BIB MOTHER. PT AAO X4 C/O SOB X 2 DAYS, WORST TODAY, EVEN AND UNLABORED BREATHING AT THIS TIME. O2 SATURATION 100% RA. PER PT'S MOTHER, PT HASN'T SLEPT FOR 2 DAYS R/T SOB. EQUAL AND EVEN RISE AND FALL OF LUNGS. EQUAL DILLON CLEAR LUNGS UPON AUSCULTATION. PT IS FIDGETY. PT PLACED ON FULL BOX LINING MACHINE OPERATOR, SEIZURE PRECAUTION, SEIZURE PADS. HOB UP. BED SIDE RAILS UP X2. ON LOW BED POSITION, LOCKED ER MADE AWARE OF PT STATUS. WILL CONTINUE TO MONITOR.
[2019-03-04] MEDS ORDERED: NACL 0.9% 1,000 ML IV SCH (11:42)
[2019-03-04] MEDS ORDERED: cefTRIAXone 1,000 MG in DEXT 5% MINI-BAG PLUS 50 ML IV ONE (11:45)
--- NOTE | 2019-03-04 12:00 | NUR ---
BS 206, DR MANTILLA AWARE AND NOTIFIED
--- NOTE | 2019-03-04 12:01 | NUR ---
LAB AT BEDSIDE
[2019-03-04 12:11] LABS: BASOPHILS # (AUTO) 0.1 K/uL (0.00-0.22); BASOPHILS % (AUTO) 1.2 % (0.0-2.0); EOSINOPHILS # (AUTO) 0.2 K/uL (0-0.4); EOSINOPHILS % (AUTO) 3.7 % (0.0-4.0); HEMATOCRIT 34.2 % (36-48); HEMOGLOBIN 11.6 g/dL (12.0-16.0); LYMPHOCYTES # (AUTO) 1.9 K/uL (2.5-16.5); LYMPHOCYTES % (AUTO) 33.9 % (20.5-51.1); MEAN CORPUSCULAR HEMOGLOBIN 30 pg (27-31); MEAN CORPUSCULAR HGB CONC 34 g/dL (33-37); MONOCYTES # (AUTO) 0.4 K/uL (0.8-1.0); MONOCYTES % (AUTO) 7.7 % (1.7-9.3); NEUTROPHILS % (AUTO) 53.5 % (42.2-75.2); PLATELET COUNT (AUTO) 397 K/uL (140-450); RED BLOOD CELL COUNT(AUTO) 3.93 MIL/uL (4.20-5.40); RED CELL DISTRIBUTION WIDTH 12.9 % (11.6-13.7); WHITE BLOOD COUNT (AUTO) 5.6 K/uL (4.8-10.8)
[2019-03-04] MEDS ORDERED: cefTRIAXone 1,000 MG VIAL ONE (12:12)
[2019-03-04 12:19] LABS: ANION GAP 18.1 (8-16); CARBON DIOXIDE 20.8 mmol/L (21-32); CREATININE 0.7 mg/dL (0.6-1.3); POTASSIUM 3.9 mmol/L (3.5-5.1)
[2019-03-04 12:26] LABS: ALBUMIN 3.8 g/dL (3.4-5.0); TOTAL BILIRUBIN 0.2 mg/dL (0.0-1.0)
[2019-03-04 12:50] LABS: APPEARANCE,URINE CLEAR (CLEAR); BILIRUBIN,URINE NEGATIVE (NEGATIVE); BLOOD, URINE TRACE-L (NEGATIVE); COLOR,URINE YELLOW (YELLOW); LEUKOCYTE ESTERASE ,URINE NEGATIVE (NEGATIVE); NITRITE, URINE NEGATIVE (NEGATIVE); PH,URINE 6.5 (5.0-9.0); UGLUCOSE NEGATIVE (NEGATIVE)
[2019-03-04 13:10] LABS: RBC,URINE 0-5 /HPF (0-5); WBC,URINE 0-5 /HPF (0-5)
[2019-03-04] MEDS ORDERED: NACL 0.9% 1,000 ML IV ONE (13:10)
[2019-03-04 14:35] VITALS: BP 117/66
--- NOTE | 2019-03-04 14:35 | NUR ---
Patient discharged with v/s stable. Written and verbal after care instructions given and explained. Patient verbalized understanding. Carried with steady gait. All questions addressed prior to discharge. Advised to follow up with PMD.
== END 2019-03-04 14:35 | disposition home or self-care (01) ==
LOC: MED 11:24
DX: R06.02 Shortness of breath (principal); R11.0 Nausea; F17.200 Nicotine dependence, unspecified, uncomplicated; E11.9 Type 2 diabetes mellitus without complications; Z79.2 Long term (current) use of antibiotics; Z79.899 Other long term (current) drug therapy; Z79.84 Long term (current) use of oral hypoglycemic drugs
CPT/HCPCS: 36415; 71045; 80053; 81001; 83605; 85025; 87040; 87086; 96365; 99284; J0696; J7030; Q0092

== ENCOUNTER 2019-03-16 21:49 | Inpatient (IN) | payer OTHER ==
[~2019-03-16] VITALS: Ht 160 cm; Wt 73.5 kg
--- NOTE | 2019-03-16 21:49 | NUR ---
PT VIOLET ALS. TAKEN TO BED 9
[2019-03-16 21:50] VITALS: BP 120/76
--- NOTE | 2019-03-16 21:55 | NUR ---
38 YO F BIBA FROM HOME S/P SEIZURE ACTIVITY. FAMILY CALLED EMS D/T FREQUENT VOMITING, SYNCOPAL EPISODE AND MOM STATES PT "HASN'T BEEN ACTING RIGHT ALL DAY". PER EMS, PT WAS FOUND PACING BEDROOM, WAS A/O X4, AND ANSWERING QUESTIONS. UPON ARRIVAL, PT IS AWAKE, ALERT, ORIENTED TO NAME, PLACE AND PURPOSE. SHE STATES "I WASN'T FEELING RIGHT BUT I FEEL BETTER NOW. ANSWERING QUESTIONS APPROPRIATELY. PT APPEARS DIAPHORETIC. SKIN PINK, MOIST. PT HAS HAND TREMORS AND APPEARS RESTLESS, MOVING LEGS. EYES ARE FLUTTERING. PERRL. PT ABLE TO RESPOND. -- PT APPEARS DISHEVELED WITH POOR HYGIENE. LOSS OF BLADDER CONTROL NOTED. -- PT SPEAKS LOUDLY AND IS AGITATED. STATES SHE FEELS BETTER AND ATTEMPTS TO GET UP FROM GURNEY. PMH-- SCHIZOPHRENIA, SEIZURES, DM
[2019-03-16] MEDS ORDERED: LORazepam 2 MG/ML VIAL IVP ONE (22:00)
[2019-03-16] MEDS ORDERED: NACL 0.9% 1,000 ML IV ONE (22:00)
--- NOTE | 2019-03-16 22:15 | NUR ---
LAB AT BEDSIDE.
--- NOTE | 2019-03-16 22:20 | NUR ---
PT RECEIVED 2 MG ATIVAN IVP FOR TREMORS/AGITATION. WILL CONTINUE TO MONITOR FOR EFFECTIVENESS.
[2019-03-16 22:24] LABS: BASOPHILS # (AUTO) 0.1 K/uL (0.00-0.22); BASOPHILS % (AUTO) 0.5 % (0.0-2.0); EOSINOPHILS # (AUTO) 0.2 K/uL (0-0.4); EOSINOPHILS % (AUTO) 1.8 % (0.0-4.0); HEMATOCRIT 31.1 % (36-48); HEMOGLOBIN 10.6 g/dL (12.0-16.0); LYMPHOCYTES # (AUTO) 2.5 K/uL (2.5-16.5); LYMPHOCYTES % (AUTO) 25.3 % (20.5-51.1); MEAN CORPUSCULAR HEMOGLOBIN 29 pg (27-31); MEAN CORPUSCULAR HGB CONC 34 g/dL (33-37); MEAN CORPUSCULAR VOLUME 85.4 fL (80-94); MONOCYTES # (AUTO) 0.8 K/uL (0.8-1.0); NEUTROPHILS # (AUTO) 6.2 K/uL (1.8-7.7); NEUTROPHILS % (AUTO) 64.4 % (42.2-75.2); PLATELET COUNT (AUTO) 348 K/uL (140-450); RED BLOOD CELL COUNT(AUTO) 3.65 MIL/uL (4.20-5.40); RED CELL DISTRIBUTION WIDTH 12.4 % (11.6-13.7); WHITE BLOOD COUNT (AUTO) 9.7 K/uL (4.8-10.8)
--- NOTE | 2019-03-16 22:25 | NUR ---
EMT PERFORMING EKG AT BEDSIDE.
[2019-03-16 22:37] LABS: PROTHROMBIN TIME 9.9 secs (10.8-13.4)
[2019-03-16 22:42] LABS: ALBUMIN 3.6 g/dL (3.4-5.0); ANION GAP 15.1 (8-16); ASPARTATE AMINOTRANSFERASE 16 U/L (15-37); CARBON DIOXIDE 20.9 mmol/L (21-32); CHLORIDE 82 mmol/L (98-107); CREATININE 0.6 mg/dL (0.6-1.3); GFR ARICAN-AMERICAN 145 mL/min (>90); GLUCOSE 139 mg/dL (74-106); SALICYLATE 3.3 mg/dL (2.8-20.0); TOTAL BILIRUBIN 0.4 mg/dL (0.0-1.0); UREA NITROGEN, BLOOD 7 mg/dL (7-18)
[2019-03-16 22:45] LABS: SODIUM SERUM 115 mmol/L (136-145)
[2019-03-16 22:46] LABS: ACETAMINOPHEN < 0.5 ug/ml (10-30)
--- NOTE | 2019-03-16 22:46 | NUR ---
Critical lab report taken. Na [address] Merino notified.
--- NOTE | 2019-03-16 22:50 | NUR ---
# 14 FR straight catheter utilizing sterile technique. Immediate return of 100 ml pale yellow, clear urine noted.Urine sample collected and sent to lab. Pt tolerated procedure well.
[2019-03-16] MEDS ORDERED: NACL 0.9% 3,000 ML IV ONE (23:00)
[2019-03-16 23:10] LABS: APPEARANCE,URINE CLEAR (CLEAR); BILIRUBIN,URINE NEGATIVE (NEGATIVE); BLOOD, URINE TRACE-I (NEGATIVE); LEUKOCYTE ESTERASE ,URINE NEGATIVE (NEGATIVE); NITRITE, URINE NEGATIVE (NEGATIVE); UGLUCOSE NEGATIVE (NEGATIVE)
[2019-03-16 23:16] LABS: BARBITURATE, URINE NEG. ng/ml (NEG <=200); BENZODIAZEPINE, URINE NEG. ng/mL (NEG <=200); CANNABINOID, URINE NEG. ng/mL (NEG <=50); COCAINE, URINE NEG. ng/mL (NEG <=300); OPIATE, URINE NEG. ng/mL (NEG <=2000); PHENCYCLIDINE SCREEN,URINE NEG. ng/mL (NEG <=25)
[2019-03-16 23:17] LABS: COLOR,URINE STRAW (YELLOW); RBC,URINE 0-5 /HPF (0-5)
[2019-03-16 23:18] LABS: WBC,URINE NONE SEEN /HPF (0-5)
--- NOTE | 2019-03-16 23:18 | NUR ---
PT IS AWAKE BUT RESTING COMFORTABLY. AGITATION/TREMORS RESOLVED. ATIVAN EFFECTIVE.
[2019-03-16] MEDS ORDERED: NACL 0.9% 1,000 ML IV SCH (23:31)
[2019-03-16] MEDS ORDERED: LORazepam 2 MG/ML VIAL IM/IVP PRN (23:35)
[2019-03-16] MEDS ORDERED: HYDROcodone/APAP 5/325 MG 1 TAB TAB PO PRN (23:35)
[2019-03-16] MEDS ORDERED: ACETAMINOPHEN 325 MG TAB PO PRN (23:35)
[2019-03-16] MEDS ORDERED: DOCUSATE SODIUM 100 MG GELCAP PO PRN (23:35)
[2019-03-16] MEDS ORDERED: MORPHINE SULFATE 2 MG/ML SYR IVP PRN (23:35)
[2019-03-16] MEDS ORDERED: ONDANSETRON 4 MG/2 ML VIAL IM/IVP PRN (23:35)
[2019-03-16] MEDS ORDERED: ZOLPIDEM 5 MG TAB PO PRN (23:35)
--- NOTE | 2019-03-16 23:51 | NUR ---
X-Ray at bedside.
--- NOTE | 2019-03-17 00:10 | NUR ---
PIV SITE PATENT, CLEAN, DRY, INTACT. NO REDNESS NOTED.
[2019-03-17 00:11] LABS: MAGNESIUM 1.5 mg/dL (1.8-2.4); PHOSPHORUS 3.3 mg/dL (2.5-4.9); THYROID STIMULATING HORMONE 2.37 uIU/mL (0.34-3.74)
--- NOTE | 2019-03-17 00:14 | NUR ---
Patient will be admitted to care of Dr. Das. Admited to TELE. Will go to room 124B. Belongings list completed. Report to MARILYNN Cantu.
--- NOTE | 2019-03-17 00:15 | NUR ---
UPON ARRIVAL TO UNIT, PATIENT IV SITE OUT AND LEAKING ALL OVER THE GOWN. . THREE FULL BAGS OF 1LITER NSS BROUGHT WITH PATIENT BY ER NURSE-BRAD.
--- NOTE | 2019-03-17 00:15 | NUR ---
ADMITTED 38 YEARS OLD FEMALE FROM ER, VIA [facility], CC: VOMITTING AND SEIZURE. DX: HYPONATREMIA AND LACTIC ACIDOSIS. SEE NURSING ADMISSION ASSESSMENT AND HISTORY. PATIENT AGITATED AND KEEP GETTING UP AND REMOVING IV AND GOWN. INFORMED DR. ALVARENGA AND ORDERED SITTER 1:1. MOVE TO 110A VIA [employer]. CARE BOARD UPDATED. ORIENTED TO ROOM AND UNIT ROUTINES.
[2019-03-17] MEDS ORDERED: ALBUTEROL SULFATE/IPRATROPIU 3 ML SOL IH PRN (00:35)
[2019-03-17] MEDS ORDERED: DEXT 5% /NACL 0.9% 1,000 ML IV SCH (00:55)
[2019-03-17] MEDS ORDERED: DEXTROSE 50% 50 ML SYR IVP PRN (01:10)
[2019-03-17] MEDS ORDERED: MAG SULF 2000 MG/WATER PREMIX 50 ML IV SCH (01:30)
[2019-03-17] MEDS ORDERED: POTASSIUM CHLORIDE 10 MEQ TABER PO SCH (01:30)
[2019-03-17] MEDS ORDERED: NICOTINE TRANSD SYS 7 MG/24 HR PATCH TD SCH (02:00)
--- NOTE | 2019-03-17 02:00 | NUR ---
VOIDING WELL. ACCOMPANIED BY BIOMEDICAL REPAIR TECHNICIAN. NO COMPLAINS. IVF BOLUS ONGOING. CALL LIGHT WITHIN REACH.
[2019-03-17 02:41] VITALS: BP 130/72
--- NOTE | 2019-03-17 03:35 | NUR ---
TO CT DEPARTMENT VIA WHEELCHAIR ACCOMPANIED BY SITTER AND SECURITY AND PRIVACY CONSULTANT.
--- NOTE | 2019-03-17 04:15 | NUR ---
DR. ALVARENGA MADE AWARE OF UNABLE TO DO CT HEAD, PATIENT UNSTEADY AND ALMOST JUMP OUT OF CT MACHINE. BACK FROM CT DEPARTMENT VIA WHEELCHAIR ACCOMPANIED BY SITTER.
[2019-03-17] MEDS ORDERED: PNEUMOCOCCAL VACCINE 23 MCG/0.5 ML VIAL IMVAC SCH (05:15)
[2019-03-17] MEDS ORDERED: ALBUTEROL SULFATE/IPRATROPIU 3 ML SOL IH SCH (06:00)
[2019-03-17 06:42] LABS: BASOPHILS % (AUTO) 0.4 % (0.0-2.0); EOSINOPHILS # (AUTO) 0.1 K/uL (0-0.4); EOSINOPHILS % (AUTO) 1.1 % (0.0-4.0); HEMATOCRIT 30.4 % (36-48); HEMOGLOBIN 10.3 g/dL (12.0-16.0); LYMPHOCYTES # (AUTO) 1.5 K/uL (2.5-16.5); MEAN CORPUSCULAR HEMOGLOBIN 29 pg (27-31); MEAN CORPUSCULAR HGB CONC 34 g/dL (33-37); MEAN CORPUSCULAR VOLUME 85.8 fL (80-94); MONOCYTES # (AUTO) 0.5 K/uL (0.8-1.0); MONOCYTES % (AUTO) 7.8 % (1.7-9.3); NEUTROPHILS # (AUTO) 4.7 K/uL (1.8-7.7); NEUTROPHILS % (AUTO) 68.7 % (42.2-75.2); PLATELET COUNT (AUTO) 320 K/uL (140-450); RED BLOOD CELL COUNT(AUTO) 3.54 MIL/uL (4.20-5.40); RED CELL DISTRIBUTION WIDTH 12.3 % (11.6-13.7); WHITE BLOOD COUNT (AUTO) 6.9 K/uL (4.8-10.8)
--- NOTE | 2019-03-17 07:18 | NUR ---
ENDORSED CARE AT BEDSIDE WITH NATO RN, PATIENT STABLE CONDITION.
--- NOTE | 2019-03-17 07:19 | NUR ---
RECEIVED BED SIDE REPORT FROM TATTOOER RN. PT CONFUSED BUT IN STABLE CONDITION, CURRENTLY GETTING BREATHING TX BY RT. SITTER AT BEDSIDE. BED ALARM ON, BED LOW, IV L HAND 20G. SKIN INTACT. NPO EXCEPT MEDS. ON SEIZURE PRECAUTIONS. CALL LIGHT WITHIN REACH, WILL CONTINUE TO MONITOR
[2019-03-17 07:30] LABS: ANION GAP 13.6 (8-16); CARBON DIOXIDE 20.9 mmol/L (21-32); CREATININE 0.5 mg/dL (0.6-1.3); POTASSIUM 4.5 mmol/L (3.5-5.1)
[2019-03-17] MEDS: BLOOD GLUCOSE MONITORING 1 DEV DEV FS SCH ×4 (07:31→20:42)
[2019-03-17] MEDS: INSULIN LISPRO SLIDING SCALE 100 UNITS/ML VIAL SUBQ PRN ×2 (07:31→20:38)
[2019-03-17 07:35] LABS: CHOL/HDL RATIO 2.9 (1-4.5); MAGNESIUM 2.7 mg/dL (1.8-2.4); PHOSPHORUS 3.3 mg/dL (2.5-4.9)
[2019-03-17 08:00] VITALS: BP 101/53
[2019-03-17] MEDS ORDERED: METFORMIN HCL 500 MG PO SCH (08:00)
[2019-03-17] MEDS ORDERED: metFORMIN 500 MG TAB PO SCH (08:00)
[2019-03-17] MEDS: levETIRAcetam 500 MG TAB PO SCH ×2 (08:13→20:31)
[2019-03-17] MEDS: QUEtiapine FUMARATE 25 MG TAB PO SCH ×2 (08:14→20:30)
[2019-03-17] MEDS: NICOTINE TRANSD SYS 7 MG/24 HR PATCH TD SCH (09:30)
[2019-03-17 11:10] LABS: ANION GAP 11.9 (8-16); CARBON DIOXIDE 21.3 mmol/L (21-32); CREATININE 0.6 mg/dL (0.6-1.3); POTASSIUM 4.2 mmol/L (3.5-5.1)
[2019-03-17 12:00] VITALS: BP 97/57
--- NOTE | 2019-03-17 12:45 | NUR ---
DR ROMERO, PSYCH, AT BEDSIDE FOR EVAL
--- NOTE | 2019-03-17 12:53 | NUR ---
PT SEEN SLEEPING COMFORTABLY. SITTER AT BEDSIDE. CALL LIGHT WITHIN REACH
[2019-03-17] MEDS: ALBUTEROL SULFATE/IPRATROPIU 3 ML SOL IH SCH ×2 (14:12→21:21)
[2019-03-17 16:00] VITALS: BP 92/58
[2019-03-17] MEDS: DEXTROSE 5% 1,000 ML IV SCH (16:20)
--- NOTE | 2019-03-17 19:20 | NUR ---
RECEIVED BEDSIDE REPORT FROM DAY SHIFT NURSE. PATIENT AWAKE, ALERT, AND COOPERATIVE. RESPIRATION EVEN UNLABORED ON ROOM AIR. SKIN IS WARM AN DRY. IV PATENT AND INTACT. PLAN OF CARE WAS DISCUSSED. ALL SAFETY MEASURES IN PLACE. BED IS AT LOW POSITION. CALL LIGHT WITHIN REACH AND VERBALIZES ITS USE. WILL CONTINUE TO MONITOR.
--- NOTE | 2019-03-17 19:25 | NUR ---
ENDORSED PT DESK ASSISTANT RN. PT IN STABLE CONDITION.
[2019-03-17 20:00] VITALS: BP 99/59
--- NOTE | 2019-03-17 20:00 | NUR ---
INITIAL ASSESSMENT DONE. VITALS WERE TAKEN. PATIENT IN STABLE CONDITION. WILL CONTINUE TO MONITOR
[2019-03-17 20:21] LABS: ANION GAP 9.5 (8-16); CARBON DIOXIDE 25.6 mmol/L (21-32); CREATININE 0.8 mg/dL (0.6-1.3); POTASSIUM 4.1 mmol/L (3.5-5.1)
[2019-03-17] MEDS: BENZTROPINE 1 MG TAB PO SCH (20:30)
[2019-03-17] MEDS: FLUPHENAZINE 10 MG PO SCH (20:33)
--- NOTE | 2019-03-17 21:00 | NUR ---
ALL SCHEDULED MEDS WERE GIVE PER ORDER. NO ASE NOTED. WILL CONTINUE TO MONITOR
--- NOTE | 2019-03-17 22:00 | NUR ---
PATIENT IN BED WATCHING TV RESPIRATION EVEN UNLABORED ON ROOM AIR. NO DISTRESS NOTED. WILL CONTINUE TO MONITOR
--- NOTE | 2019-03-17 23:00 | NUR ---
REMINDED PATIENT TO USE THE CALL LIGHT WHEN SHE WANTS TO GO TO THE BATHROOM. PATIENT AGREE AND VERBALIZE UNDERSTANDING. WILL CONTINUE TO MONITOR
[2019-03-18] VITALS: BP 93/50
--- NOTE | 2019-03-18 | NUR ---
VITALS WERE TAKEN. PATIENT IN STABLE CONDITION. NO DISTRESS NOTED. WILL CONTINUE TO MONITOR
[2019-03-18 00:56] LABS: POTASSIUM 4.1 mmol/L (3.5-5.1)
[2019-03-18 00:57] LABS: CREATININE 0.7 mg/dL (0.6-1.3)
[2019-03-18 01:06] LABS: ANION GAP 13.5 (8-16); CARBON DIOXIDE 22.6 mmol/L (21-32)
--- NOTE | 2019-03-18 02:00 | NUR ---
PATIENT SLEEPING RESPIRATION EVEN UNLABORED ON ROOM AIR. NO DISTRESS NOTED. WILL CONTINUE TO MONITOR
[2019-03-18 04:00] VITALS: BP 90/51
--- NOTE | 2019-03-18 04:00 | NUR ---
VITALS WERE TAKEN. PATIENT IN STABLE CONDITION. NO DISTRESS NOTED. WILL CONTINUE TO MONITOR
[2019-03-18 04:12] LABS: BASOPHILS # (AUTO) 0.1 K/uL (0.00-0.22); BASOPHILS % (AUTO) 1.2 % (0.0-2.0); EOSINOPHILS # (AUTO) 0.2 K/uL (0-0.4); EOSINOPHILS % (AUTO) 3.7 % (0.0-4.0); HEMOGLOBIN 10.1 g/dL (12.0-16.0); LYMPHOCYTES # (AUTO) 2.7 K/uL (2.5-16.5); LYMPHOCYTES % (AUTO) 42.7 % (20.5-51.1); MEAN CORPUSCULAR HEMOGLOBIN 29 pg (27-31); MEAN CORPUSCULAR HGB CONC 34 g/dL (33-37); MONOCYTES # (AUTO) 0.6 K/uL (0.8-1.0); MONOCYTES % (AUTO) 10.3 % (1.7-9.3); NEUTROPHILS # (AUTO) 2.6 K/uL (1.8-7.7); NEUTROPHILS % (AUTO) 42.1 % (42.2-75.2); PLATELET COUNT (AUTO) 316 K/uL (140-450); RED BLOOD CELL COUNT(AUTO) 3.44 MIL/uL (4.20-5.40); RED CELL DISTRIBUTION WIDTH 12.9 % (11.6-13.7); WHITE BLOOD COUNT (AUTO) 6.2 K/uL (4.8-10.8)
[2019-03-18 04:20] LABS: ANION GAP 12.2 (8-16); CARBON DIOXIDE 22.8 mmol/L (21-32); CREATININE 0.7 mg/dL (0.6-1.3)
[2019-03-18 04:24] LABS: MAGNESIUM 2.1 mg/dL (1.8-2.4); PHOSPHORUS 4.1 mg/dL (2.5-4.9)
[2019-03-18] MEDS: DEXTROSE 5% 1,000 ML IV SCH (04:48)
[2019-03-18] MEDS: BLOOD GLUCOSE MONITORING 1 DEV DEV FS SCH ×4 (06:15→20:48)
[2019-03-18 06:29] LABS: T4 (THYROXINE) 8.8 ug/dL (4.5-12.0)
--- NOTE | 2019-03-18 07:16 | NUR ---
ENDORSED PATIENT TO DAY SHIFT NURSE FOR CONTINUITY OF CARE. PATIENT IN STABLE CONDITION.
--- NOTE | 2019-03-18 07:20 | NUR ---
RECEIVED PT FROM [facility] SHIFT NURSEREGINE, PT IS AWAKE AND LYING ON THE BED WITH SIDE RAILS UP AND CALL LIGHT WITHIN REACH, PT HAS AN IV LINE ON THE LEFT HAND G. 22 WITH D5 INFUSING AT A RATE OF 70ML/HR, INTACT. NO SIGN OF DISTRESS NOTED AND PT DENIES PAIN AT THIS TIME, NO SEIZURE NOTED. WILL MONITOR PT.
--- NOTE | 2019-03-18 07:30 | NUR ---
PT IS AWAKE AND LYING ON THE B ED, VITAL SIGNS CHECKED, BP IS 93/57, PULSE IS 82, O2 SATURATION IS 98% AND TEMPERATURE IS 97.8, RESPIRATION IS 18/MIN. WILL MONITOR PT.
--- NOTE | 2019-03-18 07:40 | NUR ---
AWAKE AND ALERT VERBALLY RESPONSIVE NO SOB NOTED PATIENT WITH [employer]AK[employer]ST [employer] S[employer]IOR INTERNAL AUDITOR TO ATTEMPT [facility] THERAPY AND RESPIRATORY DRUG AT A LATER TIME
--- NOTE | 2019-03-18 07:41 | NUR ---
DR. VOSS AND RESIDENT DOCTORS CAME TO THE PT ROOM AND MD SPOKE TO PT AND PT RESPONDING APPROPRIATELY, ALERT AND AWAKE. WILL MONITOR PT.
[2019-03-18 08:00] VITALS: BP 93/57
[2019-03-18] MEDS: QUEtiapine FUMARATE 25 MG TAB PO SCH ×2 (08:02→21:29)
[2019-03-18] MEDS: levETIRAcetam 500 MG TAB PO SCH ×2 (08:02→21:29)
[2019-03-18] MEDS: NICOTINE TRANSD SYS 7 MG/24 HR PATCH TD SCH (08:03)
--- NOTE | 2019-03-18 08:06 | NUR ---
PT IS AWAKE AND SEATED ON THE BED, VITAL SIGNS CHECKED, ORAL MEDICATIONS WERE GIVEN AND PT TOLERATED IT. NO SIGN OF DISTRESS NOTED, OR WAS PLACED TO THE PT VIA NC ORDERED. WILL CONTINUE TO MONITOR PT.
[2019-03-18] MEDS: ALBUTEROL SULFATE/IPRATROPIU 3 ML SOL IH SCH ×3 (08:21→20:50)
--- NOTE | 2019-03-18 08:21 | NUR ---
SATURATION 100% ON SUPPLEMENTAL OXYGEN AT 2 LPM VIA NC POST [facility] THERAPY AND RESPIRATORY DRUG PLACED ON ROOM AIR NILO/MARILYNN NOTIFIED BOARD HANDLER TO MONITOR
--- NOTE | 2019-03-18 08:24 | NUR ---
PT IS HAVING BREATHING TREATMENT RIGHT NOW.
[2019-03-18 11:01] LABS: ANION GAP 12.8 (8-16); CARBON DIOXIDE 22.5 mmol/L (21-32); CREATININE 0.7 mg/dL (0.6-1.3); POTASSIUM 3.3 mmol/L (3.5-5.1)
[2019-03-18] MEDS: INSULIN LISPRO SLIDING SCALE 100 UNITS/ML VIAL SUBQ PRN (11:42)
--- NOTE | 2019-03-18 11:45 | NUR ---
PT IS AWAKE AND LYING ON THE BED, VITAL SIGNS CHECKED AND IS STABLE, BLOOD GLUCOSE CHECK DONE AND RESULT IS 164, INSULIN 2 UNITS WAS GIVEN ON THE ABDOMEN, NO SIGN OF DISTRESS NOTED AND WILL MONITOR PT.
[2019-03-18 12:00] VITALS: BP 93/61
[2019-03-18] MEDS ORDERED: POTASSIUM CHLORIDE 10 MEQ TABER PO SCH (12:00)
[2019-03-18 13:06] LABS: ANION GAP 16.1 (8-16); CARBON DIOXIDE 20.9 mmol/L (21-32); CREATININE 0.8 mg/dL (0.6-1.3)
--- NOTE | 2019-03-18 13:50 | NUR ---
PT IS HAVING BREATHING TREATMENT RIGHT NOW, RT ON THE BEDSIDE.
[2019-03-18 16:00] VITALS: BP 102/68
--- NOTE | 2019-03-18 16:50 | NUR ---
PT IS AWAKE AND VITAL SIGNS TAKEN AND IS STABLE, BLOOD GLUCOSE CHECK DONE AND RESULT IS 111 AND NO INSULIN COVERAGE NEEDED. WILL [id number] PT.
--- NOTE | 2019-03-18 19:15 | NUR ---
ENDORSED PT TO INTERLINE CLERK NURSEDOMINIQUE FOR CONTINUITY OF CARE, PT IS AWAKE AND LYING ON THE BED AND IS STABLE AT THIS TIME.
--- NOTE | 2019-03-18 19:16 | NUR ---
RECEIVED BEDSIDE REPORT FROM DAY SHIFT NURSE. PATIENT IN STABLE CONDITION. NO SOB OR ANY RESPIRATORY DISTRESS NOTED. RESPIRATION EVEN AND UNLABORED ON ROOM AIR. DENIED PAIN. SKIN IS INTACT, WARM AN DRY. IV ON LEFT HAND 22G, SL. INTACT, PATENT, AND ASYMPTOMATIC. PLAN OF CARE WAS DISCUSSED. ALL SAFETY MEASURES IN PLACE. BED IS AT LOW POSITION. CALL LIGHT WITHIN REACH. WILL CONTINUE TO MONITOR.
[2019-03-18 20:00] VITALS: BP 94/58
--- NOTE | 2019-03-18 20:48 | NUR ---
BS CHECKED, 119. NO INSULIN COVERAGE NEEDED. WILL CONTINUE TO MONITOR.
--- NOTE | 2019-03-18 21:01 | NUR ---
RECEIVED PATIENT ON ROOM AIR, PULSE OX SAT 98%. SCHEDULED BREATHING TREATMENT ADMINISTERED. TOLERATED TX WELL WITHOUT ADVERSE SIDE EFFECTS. INCENTIVE SPIROMETRY DONE WITH GOOD PATIENT EFFORT. NO RESPIRATORY DISTRESS NOTED. WILL CONTINUE TO MONITOR.
[2019-03-18] MEDS: BENZTROPINE 1 MG TAB PO SCH (21:28)
[2019-03-18] MEDS: FLUPHENAZINE 10 MG PO SCH (21:30)
--- NOTE | 2019-03-18 21:30 | NUR ---
ALL SCHEDULED MEDS ARE GIVEN DR. ORDERED. PT TOLERATED WELL. BED IN LOW POSITION AND CALL LIGHT WITHIN REACH.
[2019-03-19] VITALS: BP 103/62
--- NOTE | 2019-03-19 | NUR ---
VS CHECKED. WITHIN PT'S BASELINE. NO S/S OF ANY DISCOMFORT. WILL CONTINUE TO MONITOR.
--- NOTE | 2019-03-19 01:02 | NUR ---
MRSA NARES CAME POSITIVE. CONTACT ISOLATION INITIATED. WILL CONTINUE TO MONITOR.
--- NOTE | 2019-03-19 03:20 | NUR ---
PT SLEEPING IN BED. NO S/S OF SOB OR ANY RESPIRATORY DISTRESS NOTED. BREATHING EVEN AND UNLABORED. WILL CONTINUE TO MONITOR.
[2019-03-19 04:00] VITALS: BP 109/58
[2019-03-19] MEDS: BLOOD GLUCOSE MONITORING 1 DEV DEV FS SCH ×2 (05:34→11:46)
--- NOTE | 2019-03-19 05:34 | NUR ---
BS CHECKED, 118. NO INSULIN COVERAGE NEEDED. BED IN LOW POSITION AND CALL LIGHT WITHIN REACH.
--- NOTE | 2019-03-19 07:13 | NUR ---
ENDORSED PT TO DAY SHIFT NURSE. PT IN STABLE CONDITION.
--- NOTE | 2019-03-19 07:18 | NUR ---
RECEIVED PT FROM MICROMATIC HONE OPERATOR NURSE, HAYLEY, PT IS ASLEEP LYING ON THE BED RESPIRATION IS EVEN, PT HAS AN IV LINE ON THE LEFT HAND G.22 ON SALINE LOCK, INTACT, PT IS ON CONTACT ISOLATION FOR MRAS OF NARES AND PRECAUTION WAS INITIATED, SIDE RAILS ARE UP AND CALL LIGHT WITHIN REACH, NO SIGN OF DISTRESS NOTED AN WILL CONTINUE TO MONITOR PT.
[2019-03-19 07:21] LABS: BASOPHILS # (AUTO) 0.1 K/uL (0.00-0.22); BASOPHILS % (AUTO) 1.1 % (0.0-2.0); EOSINOPHILS # (AUTO) 0.4 K/uL (0-0.4); HEMATOCRIT 33.4 % (36-48); HEMOGLOBIN 11.2 g/dL (12.0-16.0); LYMPHOCYTES % (AUTO) 36.4 % (20.5-51.1); MEAN CORPUSCULAR HEMOGLOBIN 29 pg (27-31); MEAN CORPUSCULAR HGB CONC 34 g/dL (33-37); MEAN CORPUSCULAR VOLUME 86.7 fL (80-94); MONOCYTES # (AUTO) 0.5 K/uL (0.8-1.0); MONOCYTES % (AUTO) 9.9 % (1.7-9.3); NEUTROPHILS # (AUTO) 2.5 K/uL (1.8-7.7); NEUTROPHILS % (AUTO) 45.6 % (42.2-75.2); PLATELET COUNT (AUTO) 347 K/uL (140-450); RED BLOOD CELL COUNT(AUTO) 3.85 MIL/uL (4.20-5.40); RED CELL DISTRIBUTION WIDTH 12.6 % (11.6-13.7); WHITE BLOOD COUNT (AUTO) 5.5 K/uL (4.8-10.8)
[2019-03-19] MEDS: ALBUTEROL SULFATE/IPRATROPIU 3 ML SOL IH SCH (07:25)
[2019-03-19 07:49] LABS: MAGNESIUM 2.1 mg/dL (1.8-2.4); PHOSPHORUS 5.2 mg/dL (2.5-4.9)
[2019-03-19 07:50] LABS: ANION GAP 14.6 (8-16); CARBON DIOXIDE 24.3 mmol/L (21-32); CREATININE 0.7 mg/dL (0.6-1.3); POTASSIUM 3.9 mmol/L (3.5-5.1)
[2019-03-19 08:00] VITALS: BP 113/68
[2019-03-19] MEDS: NICOTINE TRANSD SYS 7 MG/24 HR PATCH TD SCH (08:22)
[2019-03-19] MEDS: QUEtiapine FUMARATE 25 MG TAB PO SCH (08:22)
[2019-03-19] MEDS: levETIRAcetam 500 MG TAB PO SCH (08:22)
--- NOTE | 2019-03-19 08:29 | NUR ---
PT IS AWAKE AND ORAL MEDICATIONS WERE GIVEN AND PT TOLERATED IT, BACTROBAN OINTMENT WAS APPLIED TO EACH NOSTRILS,M PT TOLERATED IT, NO SIGN OF DISTRESS NOTED AND WILL MONITOR PT.
[2019-03-19] MEDS ORDERED: MUPIROCIN CA NASAL 2% 1GM TUBE NS SCH (09:00)
[2019-03-19] MEDS ORDERED: MUPIROCIN 2% OINT 22 GM TUBE TP SCH (09:00)
[2019-03-19] MEDS ORDERED: CHLORHEXADINE GLUC 2% CLOTH TP SCH (09:00)
--- NOTE | 2019-03-19 10:00 | NUR ---
ATTEMPTED TO CALL THE MOTHER OF THE PT TO INFORM THAT PT WILL BE DISCHARGE TODAY, LEFT MESSAGE IN THE VOICEMAIL.
--- NOTE | 2019-03-19 11:30 | NUR ---
PT IS AWAKE AND VITAL SIGNS TAKEN, BP IS 103/65, PULSE IS 89, O2 SATURATION IS 1005, TEMPERATURE IS 97.9, AND RESPIRATION IS 16/MIN, BLOOD GLUCOSE CHECK DONE AND RESULT IS 115 AND NO INSULIN COVERAGE NEEDED.NO SIGN OF DISTRESS NOTED AND WILL MONITOR PT.
[2019-03-19 12:00] VITALS: BP 103/65
--- NOTE | 2019-03-19 13:30 | NUR ---
DISCHARGED PT ACCOMPANIED BY MOTHER WALKED THROUGH THE LOBBY, INSTRUCTIONS AND TEACHINGS GIVEN TO PT AND VERBALIZED UNDERSTANDING. IV AND ARM BANDS REMOVED. PT IS STABLE AT THIS TIME.
== END 2019-03-19 13:30 | disposition home or self-care (01) | DRG 640 ==
LOC: MED 21:49 → MTU 23:31
PROVIDERS: ADMIT General Practice; ATTEND General Practice
DX: E87.1 Hypo-osmolality and hyponatremia (principal); G93.41 Metabolic encephalopathy; G40.909 Epilepsy, unspecified, not intractable, without status epilepticus; E87.2 Acidosis; R63.1 Polydipsia; F25.9 Schizoaffective disorder, unspecified; E11.9 Type 2 diabetes mellitus without complications; E87.6 Hypokalemia; J45.909 Unspecified asthma, uncomplicated; E66.9 Obesity, unspecified; D64.9 Anemia, unspecified; E83.42 Hypomagnesemia; Z79.84 Long term (current) use of oral hypoglycemic drugs; Z79.899 Other long term (current) drug therapy; Z68.28 Body mass index [BMI] 28.0-28.9, adult
CPT/HCPCS: 36415; 70450; 71045; 80048; 80053; 80173; 80305; 81001; 81025; 82140; 82150; 82570; 82607; 82728; 82746; 82948; 83036; 83540; 83605; 83690; 83735; 83880; 83930; 83935; 84100; 84300; 84436; 84443; 84484; 85025; 85045; 85610; 85730; 87040; 87081; 87086; 93005; 94640; 96374; 99285; C1758; G0480; G0482; J1815; J2060; J3475; J7042; J7060; J7620; Q0092

== ENCOUNTER 2019-04-06 23:35 | Emergency (ER) | payer OTHER ==
[~2019-04-06] VITALS: Ht 160 cm; Wt 72.6 kg
[2019-04-06 23:42] VITALS: BP 128/67
--- NOTE | 2019-04-06 23:42 | NUR ---
PT TAKEN TO BED 7, TRIAGED AT BEDSIDE.
--- NOTE | 2019-04-06 23:51 | NUR ---
PT WILL GET UP, ASK TO USE RESTROOM AND AMBULATE TO RESTROOM AND COME BACK FEW SECONDS LATER. PT HAS REPEATED THIS PROCESS X3 TIMES.
[2019-04-06] MEDS ORDERED: KEP500 PO (23:56)
[2019-04-06] MEDS ORDERED: QUET100T PO (23:56)
[2019-04-06] MEDS ORDERED: DIVA250E1 PO (23:56)
--- NOTE | 2019-04-06 23:58 | NUR ---
PATIENT LEFT WITHOUT BEING SEEN BY DR. FRANK. NO FURTHER CARE PROVIDED FOR PATIENT.
--- NOTE | 2019-04-06 23:58 | NUR ---
PT LEFT FACILITY AT THIS TIME. PT OBSERVED AMBULATING OUT OF ED. MOTHER STATES "SHE WANTS TO LEAVE BUT SHE IS SICK." MOTHER LEFT ED OUT TO ER DAWOOD.
== END 2019-04-06 23:58 | disposition left against medical advice (07) ==
LOC: MED 23:35
DX: F41.9 Anxiety disorder, unspecified (principal); R41.0 Disorientation, unspecified; Z53.21 Procedure and treatment not carried out due to patient leaving prior to being seen by health care provider
CPT/HCPCS: 81002; 81025

== ENCOUNTER 2019-04-09 16:48 | Inpatient (IN) | payer OTHER ==
[~2019-04-09] VITALS: Ht 160 cm; Wt 68.5 kg
--- NOTE | 2019-04-09 | NUR ---
PATIENT VOIDED FREELY ,NO FURTHER COMPLAIN AT THIS TIME , CALL LIGHT WITH REACH ,WILL CONTINUE TO MONITOR.
[~2019-04-09 16:48] MED LIST changes: -ALBU0.0912 IH; -BENZ-248 PO; +DIVA250E1 PO; -METF500S6 PO; -PRO1 PO; +QUET100T PO; -QUET50TA PO
[2019-04-09 16:51] VITALS: BP 113/68
--- NOTE | 2019-04-09 17:03 | NUR ---
PER PT MOM PT HAS NOT BEEN TAKING LEVETIRACETAM, SEROQUEL, OR DEPAKOTE
--- NOTE | 2019-04-09 17:06 | NUR ---
ACCORDING TO MOM PT LAST SIEZURE WAS LAST WEEK, SIEZURE PRECAUTIONS TAKEN
[2019-04-09] MEDS ORDERED: NACL 0.9% 1,000 ML IV ONE (17:27)
[2019-04-09] MEDS ORDERED: NACL 0.9% 1,000 ML IV SCH (17:27)
[2019-04-09] MEDS ORDERED: FAMOTIDINE 20 MG TAB PO ONE (17:30)
[2019-04-09] MEDS ORDERED: diphenhydrAMINE 50 MG/ML VIAL IVP ONE (17:30)
[2019-04-09] MEDS ORDERED: PROMETHAZINE 25 MG/ML VIAL IM ONE (17:30)
[2019-04-09 17:52] LABS: BASOPHILS # (AUTO) 0.1 K/uL (0.00-0.22); BASOPHILS % (AUTO) 0.9 % (0.0-2.0); EOSINOPHILS # (AUTO) 0.2 K/uL (0-0.4); EOSINOPHILS % (AUTO) 2.7 % (0.0-4.0); HEMATOCRIT 30.8 % (36-48); LYMPHOCYTES # (AUTO) 1.8 K/uL (2.5-16.5); LYMPHOCYTES % (AUTO) 22.6 % (20.5-51.1); MEAN CORPUSCULAR HEMOGLOBIN 28 pg (27-31); MEAN CORPUSCULAR HGB CONC 33 g/dL (33-37); MEAN CORPUSCULAR VOLUME 85.3 fL (80-94); MONOCYTES # (AUTO) 0.6 K/uL (0.8-1.0); MONOCYTES % (AUTO) 7.1 % (1.7-9.3); NEUTROPHILS # (AUTO) 5.2 K/uL (1.8-7.7); NEUTROPHILS % (AUTO) 66.7 % (42.2-75.2); PLATELET COUNT (AUTO) 431 K/uL (140-450); RED BLOOD CELL COUNT(AUTO) 3.61 MIL/uL (4.20-5.40); RED CELL DISTRIBUTION WIDTH 13.5 % (11.6-13.7); WHITE BLOOD COUNT (AUTO) 7.9 K/uL (4.8-10.8)
[2019-04-09 17:56] LABS: APPEARANCE,URINE CLEAR (CLEAR); BILIRUBIN,URINE NEGATIVE (NEGATIVE); BLOOD, URINE 1+ (NEGATIVE); COLOR,URINE YELLOW (YELLOW); LEUKOCYTE ESTERASE ,URINE 3+ (NEGATIVE); NITRITE, URINE NEGATIVE (NEGATIVE); UGLUCOSE NEGATIVE (NEGATIVE)
--- NOTE | 2019-04-09 18:00 | NUR ---
C/O FEELING "SICK" X3 DAYS. PT REPORTS N/V/D. DENIES FEVER, CP/SOB. ABDOMEN IS SOFT/FLAT/NON TENDER TO PALPATION. LBM TODAY, DIARRHEA. PT REPORTS RECENTLY BEING ADMITTED TO [facility] FOR HYPONATREMIA/SEIZURES. SEIZURE PRECAUTIONS ARE IN PLACE AT THIS TIME. PT HAS HX OF SCHIZOPHRENIA & SEIZURES. BED IN LOW POSITION, SIDE RAILS UP X2 WITH SEIZURE PADDING.
[2019-04-09 18:08] LABS: ANION GAP 15.8 (8-16); CARBON DIOXIDE 21.2 mmol/L (21-32); CREATININE 0.7 mg/dL (0.6-1.3)
[2019-04-09] MEDS ORDERED: INSULIN REGULAR, HUMAN 100 UNIT/ML VIAL SUBQ ONE (18:10)
--- NOTE | 2019-04-09 18:11 | NUR ---
ATTEMPTED IV START, WAS NOT SUCESSFUL. ALTERNATE RN WILL ATTEMPT
[2019-04-09 18:16] LABS: WBC,URINE 80-100 /HPF (0-5)
[2019-04-09 18:18] LABS: ALBUMIN 3.4 g/dL (3.4-5.0); TOTAL BILIRUBIN 0.1 mg/dL (0.0-1.0)
[2019-04-09] MEDS ORDERED: KETOROLAC 30 MG/ML VIAL IVP ONE (18:55)
[2019-04-09] MEDS ORDERED: HYDROcodone/APAP 7.5/325 MG 1 TAB PO PRN (19:05)
[2019-04-09] MEDS ORDERED: ONDANSETRON 4 MG/2 ML VIAL IVP PRN (19:05)
[2019-04-09] MEDS ORDERED: DEXTROSE 50% 50 ML SYR IVP PRN (19:05)
[2019-04-09] MEDS ORDERED: INSULIN LISPRO SLIDING SCALE 100 UNITS/ML VIAL SUBQ PRN (19:05)
[2019-04-09] MEDS ORDERED: ACETAMINOPHEN 325 MG TAB PO PRN (19:05)
[2019-04-09] MEDS ORDERED: cefTRIAXone 1,000 MG VIAL ONE (19:10)
[2019-04-09] MEDS ORDERED: LORazepam 2 MG/ML VIAL IVP PRN (19:15)
--- NOTE | 2019-04-09 19:27 | NUR ---
IV BLEW WHILE GIVING MEDS
--- NOTE | 2019-04-09 19:50 | NUR ---
BLOOD CULTURES WERE TAKEN FROM PT. IV WAS STARTED ON RIGHT WRIST, PT WILL BE ADMITED TO MED SURG. PT TOLERATED WELL. ER MADE AWARE OF STATUS. ANBTIBIOTICS WILL BE STARTED IN MED SURG. RN.
[2019-04-09 20:20] VITALS: BP 104/74
--- NOTE | 2019-04-09 20:20 | NUR ---
RECIEVED PT FROM ER PER VICTOR HUGO [id number] ,NOT IN RESP. DISTRESS ,AMBULATORY ,IV SITE INTACT AND PATENT ,TRANSFER TO BED SAFELY ,BED IN LOW POSITION , SIDERAILS UP X4 ,CALL LIGHT WITHIN REACH .ADMISSION ASSESSMENT DONE ,MRSA COLLECTED AND SENT TO LAB V/S TAKEN , WILL CONTINUE TO MONITOR.
--- NOTE | 2019-04-09 20:20 | NUR ---
GAVE IV FLUIDS AND ABX TO AIDEE SUBRAMANIAN TO ADMINISTER IN MED SURG DUE TO ISSUE WITH STARTING IV.
--- NOTE | 2019-04-09 20:20 | NUR ---
Patient will be admitted to care of DR. VOSS. Admited to MED SURG. Will go to room 120B. Belongings list completed. Report to AIDEE SUBRAMANIAN.
[2019-04-09] MEDS ORDERED: PRO1 PO (20:33)
[2019-04-09] MEDS ORDERED: BENZ-248 PO (20:33)
[2019-04-09] MEDS ORDERED: METF500T PO (20:33)
[2019-04-09 20:37] LABS: FREE T4 (FREE THYROXINE) 0.98 ng/dL (0.76-1.46); MAGNESIUM 2.2 mg/dL (1.8-2.4); PHOSPHORUS 3.1 mg/dL (2.5-4.9); THYROID STIMULATING HORMONE 1.17 uIU/mL (0.34-3.74)
[2019-04-09 20:47] LABS: PROTHROMBIN TIME 9.6 secs (10.8-13.4)
[2019-04-09] MEDS ORDERED: QUEtiapine FUMARATE 100 MG TAB PO SCH (21:00)
[2019-04-09] MEDS: BLOOD GLUCOSE MONITORING 1 DEV DEV FS SCH (21:00)
[2019-04-09 21:15] LABS: BARBITURATE, URINE NEG. ng/ml (NEG <=200); BENZODIAZEPINE, URINE NEG. ng/mL (NEG <=200); CANNABINOID, URINE NEG. ng/mL (NEG <=50); COCAINE, URINE NEG. ng/mL (NEG <=300); OPIATE, URINE NEG. ng/mL (NEG <=2000); PHENCYCLIDINE SCREEN,URINE NEG. ng/mL (NEG <=25)
[2019-04-09] MEDS: DOCUSATE SODIUM 100 MG GELCAP PO SCH (22:43)
[2019-04-09] MEDS: levETIRAcetam 500 MG TAB PO SCH (22:43)
[2019-04-09] MEDS: BENZTROPINE 1 MG TAB PO SCH (22:43)
[2019-04-09] MEDS: DIVALPROEX 250 MG TABEC PO SCH (22:44)
[2019-04-10] VITALS: BP 110/71
--- NOTE | 2019-04-10 | NUR ---
MADE ROUNDS ,V/S TAKEN ,NOT IN DISTRESS , NO FURTHER COMPLAIN AT THIS TIME , IV SITE INTACT AND PATENT , BED IN LOW POSITION ,SIDERAILS UPX2 , CALL LIGHT WITH IN REACH.
[2019-04-10] MEDS: NACL 0.9% 1,000 ML IV SCH ×3 (01:48→23:04)
--- NOTE | 2019-04-10 02:00 | NUR ---
MADE ROUNDS PT. SLEEPING. CALL LIGHT WITH IN REACH
[2019-04-10 04:00] VITALS: BP 93/45
--- NOTE | 2019-04-10 04:00 | NUR ---
V/S TAKEN ; BP 90/60 , NO VOMITING SINCE 2019PM. VOIDED FREELY. NOT IN RESP. DISTRESS O2 SAT WNL ,IVF INFUSING WELL , NO COMPLAINS OF ANY DISCOMFORT AT THIS TIME , CALL LIGHT WITHIN REACH , WILL CONTINUE TO MONITOR.
--- NOTE | 2019-04-10 05:00 | NUR ---
BP RE CHECKED BP 93/45MMHG REFERRED TO JIMMIE , CHARGE NURSE INFORMED , ,NO VOMITING, NOT ON DISTRESS .CALL LIGHT WITHIN REACH WILL CONTINUE TO MONITOR .
[2019-04-10] MEDS: DIVALPROEX 250 MG TABEC PO SCH ×3 (05:25→20:53)
--- NOTE | 2019-04-10 06:00 | NUR ---
MADE ROUNDS , PT SLEEPING .
--- NOTE | 2019-04-10 06:30 | NUR ---
MADE ROUNDS , NOT IN DISTRESS , NO COMPLAINS MADE AT THIS TIME. CALL LIGHT WITHIN REACH . LATEST HGT 80MG/DL ,CALL LIGHT WITHIN REACH.
--- NOTE | 2019-04-10 07:28 | NUR ---
ENDORSED TO AM SHIFT FOR CONTINUITY OF CARE.
--- NOTE | 2019-04-10 07:29 | NUR ---
RECEIVED BEDSIDE REPORT FROM PROOFING MACHINE OPERATOR RN. PATIENT IN STABLE CONDITION. SLEEPING WITH IV INFUSING WELL TO RIGHT WRIST 22 G. NO SIGNS OF DISTRESS ON RA. SAFETY PRECAUTIONS IN PLACE.
[2019-04-10] MEDS: BLOOD GLUCOSE MONITORING 1 DEV DEV FS SCH ×4 (07:45→20:57)
[2019-04-10 08:00] VITALS: BP_SYST 89; BP_SYST 94; BP_DIAS 53; BP_DIAS 54
[2019-04-10] MEDS: levETIRAcetam 500 MG TAB PO SCH ×2 (08:58→20:54)
[2019-04-10] MEDS: metFORMIN 500 MG TAB PO SCH ×2 (08:58→17:02)
[2019-04-10] MEDS: DOCUSATE SODIUM 100 MG GELCAP PO SCH ×2 (08:58→20:54)
--- NOTE | 2019-04-10 08:58 | NUR ---
ADMINISTERED SCHEDULED MEDICATIONS. BP LOW BUT MAP IS WNL. DR. CHAPA. PATIENT HAS NO C/O DIZZINESS.
[2019-04-10] MEDS: LACTOBACILLUS RHAMNOSUS GG 1 EACH CAP PO SCH (08:59)
[2019-04-10] MEDS ORDERED: NACL 0.9% 250 ML IV SCH (09:30)
--- NOTE | 2019-04-10 10:45 | NUR ---
ASSISTED PATIENT TO BATHROOM. PATIENT AMBULATED WELL. STEADY GAIT. RETURNED PATIENT TO BED. WILL CONTINUE TO MONITOR.
--- NOTE | 2019-04-10 12:00 | NUR ---
GLUCOSE WNL. NO INSULIN COVERAGE NEEDED.
--- NOTE | 2019-04-10 12:45 | NUR ---
ADMINISTERED SCHEDULED MEDICATIONS. PATIENT TOLERATED WELL. FAMILY IS AT BEDSIDE. MOTHER WOULD LIKE TO SPEAK WITH DOCTOR. WILL MAKE DOCTOR AWARE.
--- NOTE | 2019-04-10 14:30 | NUR ---
PATIENT SLEEPING IN BED. NO SIGNS OF DISTRESS NOTED ON RA. SAFETY PRECAUTIONS IN PLACE.
[2019-04-10 16:00] VITALS: BP 94/39
[2019-04-10 17:01] LABS: BASOPHILS % (AUTO) 0.9 % (0.0-2.0); EOSINOPHILS # (AUTO) 0.2 K/uL (0-0.4); EOSINOPHILS % (AUTO) 3.4 % (0.0-4.0); HEMATOCRIT 29.2 % (36-48); HEMOGLOBIN 9.7 g/dL (12.0-16.0); LYMPHOCYTES # (AUTO) 2.3 K/uL (2.5-16.5); LYMPHOCYTES % (AUTO) 41.7 % (20.5-51.1); MEAN CORPUSCULAR HEMOGLOBIN 28 pg (27-31); MEAN CORPUSCULAR HGB CONC 33 g/dL (33-37); MEAN CORPUSCULAR VOLUME 84.5 fL (80-94); MONOCYTES # (AUTO) 0.4 K/uL (0.8-1.0); MONOCYTES % (AUTO) 7.5 % (1.7-9.3); NEUTROPHILS # (AUTO) 2.6 K/uL (1.8-7.7); NEUTROPHILS % (AUTO) 46.5 % (42.2-75.2); PLATELET COUNT (AUTO) 397 K/uL (140-450); RED BLOOD CELL COUNT(AUTO) 3.46 MIL/uL (4.20-5.40); RED CELL DISTRIBUTION WIDTH 13.2 % (11.6-13.7); WHITE BLOOD COUNT (AUTO) 5.5 K/uL (4.8-10.8)
--- NOTE | 2019-04-10 17:05 | NUR ---
ADMINISTERED SCHEDULED MEDICATIONS. BLOOD GLUCOSE 91, NO INSULIN COVERAGE NEEDED. NO SIGNS OF DISTRESS. BLOOD PRESSURE REMAINS IN THE LOW NORMAL.
[2019-04-10 17:13] LABS: ANION GAP 14.3 (8-16); CARBON DIOXIDE 21.5 mmol/L (21-32); CREATININE 0.6 mg/dL (0.6-1.3); POTASSIUM 3.8 mmol/L (3.5-5.1)
[2019-04-10 17:17] LABS: MAGNESIUM 1.9 mg/dL (1.8-2.4); PHOSPHORUS 3.6 mg/dL (2.5-4.9)
--- NOTE | 2019-04-10 19:05 | NUR ---
RECEIVED BEDSIDE REPORT FROM DAY SHIFT NURSE. PATIENT IS AWAKE, ALERT, AND COOPERATIVE. RESPIRATION EVEN UNLABORED ON ROOM AIR. SKIN IS WARM AND DRY. IV PATENT AND INTACT. NO DISTRESS NOTED. PLAN OF CARE WAS DISCUSSED. ALL SAFETY MEASURES IN PLACE. BED IS AT LOW POSITION. CALL LIGHT WITHIN REACH AND VERBALIZES ITS USE. WILL CONTINUE TO MONITOR.
--- NOTE | 2019-04-10 19:15 | NUR ---
GAVE BEDSIDE REPORT TO SOUNDING DEVICE OPERATOR RNREGINE. PATIENT IN STABLE CONDITION.
--- NOTE | 2019-04-10 20:00 | NUR ---
INITIAL ASSESSMENT DONE. VITALS WERE TAKEN. PATIENT IS IN STABLE CONDITION. WILL CONTINUE TO MONITOR
[2019-04-10] MEDS: BENZTROPINE 1 MG TAB PO SCH (20:54)
[2019-04-10] MEDS ORDERED: FLUPHENAZINE 10 MG PO SCH (21:00)
--- NOTE | 2019-04-10 21:00 | NUR ---
ALL SCHEDULED MEDS WERE GIVE AND NO ASE NOTED. WILL CONTINUE TO MONITOR.
--- NOTE | 2019-04-10 22:00 | NUR ---
PATIENT IN BED WATCHING TV RESPIRATION EVEN UNLABORED ON ROOM AIR. NO DISTRESS NOTED. WILL CONTINUE TO MONITOR
[2019-04-11] VITALS: BP 101/60
--- NOTE | 2019-04-11 | NUR ---
VITALS WERE TAKEN. PATIENT IS IN STABLE CONDITION. WILL CONTINUE TO MONITOR.
--- NOTE | 2019-04-11 02:00 | NUR ---
CHECKED PATIENT. PATIENT SLEEPING RESPIRATION EVEN UNLABORED ON ROOM AIR. NO DISTRESS NOTED. WILL CONTINUE TO MONITOR.
--- NOTE | 2019-04-11 04:00 | NUR ---
CHECKED PATIENT. PATIENT SLEEPING RESPIRATION EVEN UNLABORED ON ROOM AIR. NO DISTRESS NOTED. WILL CONTINUE TO MONITOR.
[2019-04-11] MEDS: DIVALPROEX 250 MG TABEC PO SCH ×2 (05:12→13:42)
[2019-04-11] MEDS: BLOOD GLUCOSE MONITORING 1 DEV DEV FS SCH ×2 (06:27→12:23)
--- NOTE | 2019-04-11 07:15 | NUR ---
ENDORSED PATIENT TO DAY SHIFT NURSE FOR CONTINUITY OF CARE. PATIENT IS IN STABLE CONDITION.
--- NOTE | 2019-04-11 07:16 | NUR ---
RECEIVED BEDSIDE REPORT FROM YEAST FERMENTATION ATTENDANT RNREGINE. PATIENT IN STABLE CONDITION. VITALS WNL. SAFETY PRECAUTIONS IN PLACE. WILL CONTINUE TO MONITOR.
[2019-04-11 08:00] VITALS: BP 108/62
--- NOTE | 2019-04-11 08:08 | NUR ---
PATIENT HAS BEEN SCREENED AND CATEGORIZED LOW NUTRITION RISK. PATIENT WILL BE SEEN WITHIN 1-2 DAYS OF ADMISSION. 04/11/[address]
[2019-04-11 08:45] LABS: BASOPHILS # (AUTO) 0.1 K/uL (0.00-0.22); BASOPHILS % (AUTO) 0.9 % (0.0-2.0); EOSINOPHILS # (AUTO) 0.2 K/uL (0-0.4); EOSINOPHILS % (AUTO) 2.9 % (0.0-4.0); HEMOGLOBIN 9.5 g/dL (12.0-16.0); LYMPHOCYTES # (AUTO) 2.5 K/uL (2.5-16.5); LYMPHOCYTES % (AUTO) 45.7 % (20.5-51.1); MEAN CORPUSCULAR HEMOGLOBIN 28 pg (27-31); MEAN CORPUSCULAR HGB CONC 33 g/dL (33-37); MEAN CORPUSCULAR VOLUME 84.1 fL (80-94); MONOCYTES # (AUTO) 0.4 K/uL (0.8-1.0); MONOCYTES % (AUTO) 7.2 % (1.7-9.3); NEUTROPHILS # (AUTO) 2.4 K/uL (1.8-7.7); NEUTROPHILS % (AUTO) 43.3 % (42.2-75.2); PLATELET COUNT (AUTO) 379 K/uL (140-450); RED BLOOD CELL COUNT(AUTO) 3.45 MIL/uL (4.20-5.40); RED CELL DISTRIBUTION WIDTH 13.2 % (11.6-13.7); WHITE BLOOD COUNT (AUTO) 5.6 K/uL (4.8-10.8)
[2019-04-11] MEDS: DOCUSATE SODIUM 100 MG GELCAP PO SCH (08:45)
[2019-04-11] MEDS: metFORMIN 500 MG TAB PO SCH (08:45)
[2019-04-11] MEDS: levETIRAcetam 500 MG TAB PO SCH (08:46)
[2019-04-11] MEDS: LACTOBACILLUS RHAMNOSUS GG 1 EACH CAP PO SCH (08:46)
--- NOTE | 2019-04-11 08:50 | NUR ---
ADMINISTERED SCHEDULED MEDICATIONS. PATIENT TOLERATED WELL. ASSISTED PATIENT TO AMBULATE TO BATHROOM. GAIT STEADY.
[2019-04-11 08:57] LABS: ANION GAP 13.3 (8-16); CARBON DIOXIDE 22.4 mmol/L (21-32); CREATININE 0.6 mg/dL (0.6-1.3); POTASSIUM 3.7 mmol/L (3.5-5.1)
[2019-04-11] MEDS: NACL 0.9% 1,000 ML IV SCH (09:00)
[2019-04-11 09:48] LABS: MAGNESIUM 1.8 mg/dL (1.8-2.4)
[2019-04-11 09:49] LABS: PHOSPHORUS 4.1 mg/dL (2.5-4.9)
--- NOTE | 2019-04-11 10:30 | NUR ---
PATIENT SLEEPING NO SIGNS OF DISTRESS ON RA. SAFETY PRECAUTIONS IN PLACE.
[2019-04-11] MEDS ORDERED: VALB40CA PO (10:57)
--- NOTE | 2019-04-11 12:30 | NUR ---
BLOOD GLUCOSE 114. NO INSULIN COVERAGE NEEDED. WILL CONTINUE TO MONITOR.
[2019-04-11] MEDS ORDERED: LACT10CA1 PO (12:39)
[2019-04-11] MEDS ORDERED: SULF-59 PO (12:39)
--- NOTE | 2019-04-11 13:44 | NUR ---
ADMINISTERED SCHEDULED MEDICATIONS. PATIENT TOLERATED WELL.
[2019-04-11 14:10] VITALS: BP 108/62
--- NOTE | 2019-04-11 15:10 | NUR ---
PATIENT MOTHER AT BEDSIDE FOR DISCHARGE EDUCATION PROVIDED THE FOLLOWING EDUCATION TO BOTH MOTHER AND PATIENT: UTI TREATMENT, PREVENTION, AND SYMPTOMS FOR WHICH TO SEEK MEDICAL CARE, NEED TO FOLLOW UP WITH PRIMARY PHYSICIAN AND CONTACT INFORMATION TO DO SO, PRESCRIPTION MEDICATIONS, ANTIBIOTIC THERAPY, DIABETES MANAGEMENT. REMOVED 22 GAUGE IV CATHETER FROM RIGHT HAND, TIP INTACT. VITAL SIGNS STABLE. PATIENT AMBULATORY WITH STEADY GAIT. NO SIGNS OF DISTRESS NOTED ON RA. ESCORTED PATIENT OUT OF HOSPITAL VIA WHEELCHAIR. PATIENT LEFT VIA PRIVATE VEHICLE ACCOMPANIED BY MOTHER AND SON.
[2019-04-13 06:12] LABS: CHLAMYDIA TRACHOMATIS AMP DNA Negative (Negative)
== END 2019-04-11 15:10 | disposition home or self-care (01) | DRG 690 ==
LOC: MED 16:58 → MTU 19:04
PROVIDERS: ADMIT General Practice; ATTEND General Practice
DX: N39.0 Urinary tract infection, site not specified (principal); K52.9 Noninfective gastroenteritis and colitis, unspecified; F20.9 Schizophrenia, unspecified; E86.0 Dehydration; E11.65 Type 2 diabetes mellitus with hyperglycemia; G40.909 Epilepsy, unspecified, not intractable, without status epilepticus; J45.909 Unspecified asthma, uncomplicated; E66.9 Obesity, unspecified; F17.210 Nicotine dependence, cigarettes, uncomplicated; D64.9 Anemia, unspecified; G24.01 Drug induced subacute dyskinesia; E87.8 Other disorders of electrolyte and fluid balance, not elsewhere classified; Z68.26 Body mass index [BMI] 26.0-26.9, adult; Z79.899 Other long term (current) drug therapy; Z79.84 Long term (current) use of oral hypoglycemic drugs; Z91.14 Patient's other noncompliance with medication regimen
CPT/HCPCS: 36415; 71045; 80048; 80053; 80305; 81001; 81002; 81025; 82150; 82948; 83690; 83735; 83880; 84100; 84439; 84443; 84703; 85025; 85610; 85730; 87040; 87081; 87086; 87491; 93005; 96372; 96374; 96375; 99285; J0696; J1200; J1815; J1885; J2550; J7030; J7060; Q0092

== ENCOUNTER 2019-06-09 20:31 | Emergency (ER) | payer OTHER ==
[~2019-06-09] VITALS: Ht 157.5 cm; Wt 65.8 kg
[~2019-06-09 20:31] MED LIST changes: +BENZ-248 PO; +LACT10CA1 PO; +METF500T PO; +PRO1 PO; -QUET100T PO; +SULF-59 PO; +VALB40CA PO
[2019-06-09 20:48] VITALS: BP 110/85
--- NOTE | 2019-06-09 20:48 | NUR ---
to bed # 09 ambulatory
--- NOTE | 2019-06-09 20:55 | NUR ---
Note undone in EDM - 06/09/19 at 2113 by MEDAP PT PRESENTED TO ED ACCOMPANIED BY MOTHER, C/O RIGHT RIB PAIN FOR 2 DAYS, PT STATED "I WAS NOT DOING ANYTHING, ALL OF A SUDDEN MY RIGHT RIB STARTED HURTING" PAIN OF 6/10, DENIES ANY TRAUMA OR INJURY, NO C/O N/V/D BLURRY VISION, PT AAOX4, RR EVEN UNLABORED, ED MD DR. BACON MADE AWARE, WILL CONTINUE TO MONITOR CLOSELY. BED IN LOWEST POSITION. PT WITH HX OF SEIZURE, SIDERAIL PADS IN PLACE.
--- NOTE | 2019-06-09 20:55 | NUR ---
PT PRESENTED TO ED ACCOMPANIED BY MOTHER, C/O RIGHT RIB PAIN FOR 2 DAYS, PT STATED "I WAS NOT DOING ANYTHING, ALL OF A SUDDEN MY RIGHT RIB STARTED HURTING" PAIN OF 6/10, DENIES ANY TRAUMA OR INJURY, NO C/O N/V/D, PT AAOX4, RR EVEN UNLABORED, ED MD DR. BACON MADE AWARE, WILL CONTINUE TO MONITOR CLOSELY. BED IN LOWEST POSITION. PT WITH HX OF SEIZURE, SIDERAIL PADS IN PLACE.
--- NOTE | 2019-06-09 20:57 | NUR ---
DR. BACON AT BEDSIDE
--- NOTE | 2019-06-09 21:04 | NUR ---
XRAY AT BEDSIDE.
[2019-06-09 21:45] LABS: BARBITURATE, URINE NEG. ng/ml (NEG <=200); BENZODIAZEPINE, URINE NEG. ng/mL (NEG <=200); CANNABINOID, URINE NEG. ng/mL (NEG <=50); COCAINE, URINE NEG. ng/mL (NEG <=300); OPIATE, URINE NEG. ng/mL (NEG <=2000); PHENCYCLIDINE SCREEN,URINE NEG. ng/mL (NEG <=25)
--- NOTE | 2019-06-09 22:30 | NUR ---
PT IN BED RESTING, IN STABLE CONDITION.
[2019-06-09] MEDS ORDERED: KETOROLAC 30 MG/ML VIAL IM ONE (22:35)
--- NOTE | 2019-06-09 22:37 | NUR ---
Note pati in ED - 06/09/19 at 2344 by [facility] Patient discharged with v/s stable. Written and verbal after care instructions given and explained. Patient verbalized understanding. Ambulatory with steady gait. All questions addressed prior to discharge. Advised to follow up with PMD.
--- NOTE | 2019-06-09 23:25 | NUR ---
PT STATES NO PAIN AT THIS TIME, SITTING IN BED, MOTHER AT BEDSIDE.
[2019-06-09 23:37] VITALS: BP 117/74
--- NOTE | 2019-06-09 23:37 | NUR ---
Patient discharged with v/s stable. Written and verbal after care instructions given and explained. Patient verbalized understanding. Ambulatory with steady gait. All questions addressed prior to discharge. Advised to follow up with PM
== END 2019-06-09 23:37 | disposition home or self-care (01) ==
LOC: MED 20:31
DX: R07.89 Other chest pain (principal); E11.9 Type 2 diabetes mellitus without complications; F20.9 Schizophrenia, unspecified; Z79.84 Long term (current) use of oral hypoglycemic drugs; Z79.899 Other long term (current) drug therapy
CPT/HCPCS: 71045; 80305; 81025; 96372; 99284; J1885; Q0092

== ENCOUNTER 2019-07-02 08:55 | Emergency (ER) | payer OTHER ==
[~2019-07-02] VITALS: Ht 160 cm; Wt 66.7 kg
[2019-07-02 08:55] VITALS: BP 134/71
--- NOTE | 2019-07-02 08:55 | NUR ---
VIOLET W/ C/O ALTERED MENTAL STATUS X1 DAY REPORTED BY FAMILY. PT IS DISPLAYING TREMORS AT THIS TIME. PT DENIES PAIN. FSBS 131 IN FIELD. PT IS AA0X4, SLOW TO RESPOND TO QUESTIONS. VSS. SEIZURE PRECAUTIONS IN PLACE. BED IS DOWN, LOCKED, BED RAIL X 1, ERMD TO SEE PT. HX: SEIZURES, SCHIZOPHRENIA, DM, HYPONATREMIA RX: UNKNOWN
[2019-07-02 09:30] LABS: PROTHROMBIN TIME 9.6 secs (10.8-13.4)
--- NOTE | 2019-07-02 09:38 | NUR ---
DR HAYWOOD AT BEDSIDE
[2019-07-02 09:46] LABS: ALBUMIN 3.8 g/dL (3.4-5.0); ANION GAP 15.3 (8-16); CARBON DIOXIDE 20.3 mmol/L (21-32); CREATININE 0.7 mg/dL (0.6-1.3); POTASSIUM 3.6 mmol/L (3.5-5.1); TOTAL BILIRUBIN 0.5 mg/dL (0.0-1.0)
--- NOTE | 2019-07-02 09:48 | NUR ---
SODIUM 121 PER LAB, DR HAYWOOD NOTIFIED
--- NOTE | 2019-07-02 09:49 | NUR ---
PT AMB TO RESTROOM WITH STEADY GAIT
[2019-07-02 09:55] LABS: BASOPHILS # (AUTO) 0.1 K/uL (0.00-0.22); BASOPHILS % (AUTO) 0.9 % (0.0-2.0); EOSINOPHILS % (AUTO) 0.4 % (0.0-4.0); HEMATOCRIT 30.9 % (36-48); HEMOGLOBIN 10.3 g/dL (12.0-16.0); LYMPHOCYTES % (AUTO) 19.5 % (20.5-51.1); MEAN CORPUSCULAR HEMOGLOBIN 25 pg (27-31); MEAN CORPUSCULAR HGB CONC 33 g/dL (33-37); MEAN CORPUSCULAR VOLUME 74.2 fL (80-94); MONOCYTES # (AUTO) 0.7 K/uL (0.8-1.0); MONOCYTES % (AUTO) 7.2 % (1.7-9.3); NEUTROPHILS # (AUTO) 7.3 K/uL (1.8-7.7); PLATELET COUNT (AUTO) 365 K/uL (140-450); RED BLOOD CELL COUNT(AUTO) 4.16 MIL/uL (4.20-5.40); RED CELL DISTRIBUTION WIDTH 16.5 % (11.6-13.7); WHITE BLOOD COUNT (AUTO) 10.2 K/uL (4.8-10.8)
[2019-07-02] MEDS ORDERED: NACL 0.9% 1,000 ML IV ONE (10:00)
[2019-07-02 10:25] VITALS: BP 116/70
--- NOTE | 2019-07-02 10:25 | NUR ---
VSS AT THIS TIME, NACL RUNNING AT 150 MLS/HOUR
--- NOTE | 2019-07-02 10:27 | NUR ---
PT CONTINUES TO REMOVE IV FLUIDS AND WALK TO RESTROOM
--- NOTE | 2019-07-02 10:30 | NUR ---
PT AMB TO RESTROOM AGAIN AFTER BEING PLACED BACK ON CLERK SUPERVISOR
[2019-07-02] MEDS ORDERED: NACL 0.9% 1,000 ML IV SCH (10:41)
[2019-07-02] MEDS ORDERED: ONDANSETRON 4 MG/2 ML VIAL IM/IVP PRN (10:45)
[2019-07-02] MEDS ORDERED: ACETAMINOPHEN 325 MG TAB PO PRN (10:45)
[2019-07-02] MEDS ORDERED: HYDROcodone/APAP 5/325 MG 1 TAB TAB PO PRN (10:45)
--- NOTE | 2019-07-02 10:45 | NUR ---
PATIENT ELOPED FROM FACILITY. DISCHARGE INSTRUCTIONS NOT GIVEN TO PATIENT. DR. HAYWOOD NOTIFIED.
--- NOTE | 2019-07-02 10:45 | NUR ---
PT STATES SHE NEEDS TO USE RESTROOM. FLUIDS DISCONNECTED.
--- NOTE | 2019-07-02 10:46 | NUR ---
PATIENT IS DRESSED AND LEFT THE BUILDING RUNNING, SECURITY CALLED. IV NOT REMOVED.
--- NOTE | 2019-07-02 10:52 | NUR ---
MOTHER WAS NOTIFIED PT JU AND RAN AWAY FROM STAFF---ADVICED MOTHER TO CALL AMBULANCE TO RETURN TO ER IF SHE RETURNS HOME--- INFORMED MOTHER WE ARE LOOKING FOR HER ON THER GROUNDS WITH SECURITY
--- NOTE | 2019-07-02 11:59 | NUR ---
11:59---- CALLED AMADO BRISCOE FOR WELLNESS CHECK ON PT
== END 2019-07-02 10:46 | disposition left against medical advice (07) ==
LOC: MED 08:55
DX: E87.1 Hypo-osmolality and hyponatremia (principal); R41.0 Disorientation, unspecified; F60.0 Paranoid personality disorder; E11.9 Type 2 diabetes mellitus without complications; F20.9 Schizophrenia, unspecified; Z79.84 Long term (current) use of oral hypoglycemic drugs; Z79.899 Other long term (current) drug therapy
CPT/HCPCS: 80053; 81002; 81025; 82948; 83605; 85025; 85610; 96360; 99283; J7030

== ENCOUNTER 2019-07-02 13:30 | Inpatient (IN) | payer OTHER ==
[~2019-07-02] VITALS: Ht 160 cm; Wt 63.5 kg
[2019-07-02 13:44] VITALS: BP 116/80
[2019-07-02] MEDS ORDERED: ONDANSETRON 4 MG/2 ML VIAL IM/IVP PRN (14:35)
[2019-07-02] MEDS ORDERED: ACETAMINOPHEN 325 MG TAB PO PRN (14:35)
[2019-07-02] MEDS ORDERED: HYDROcodone/APAP 5/325 MG 1 TAB TAB PO PRN (14:35)
[2019-07-02 15:20] VITALS: BP 112/68
[2019-07-02 16:31] LABS: MAGNESIUM 1.5 mg/dL (1.8-2.4); PHOSPHORUS 3.9 mg/dL (2.5-4.9); THYROID STIMULATING HORMONE 2.23 uIU/mL (0.34-3.74)
[2019-07-02] MEDS ORDERED: INSULIN LISPRO SLIDING SCALE 100 UNITS/ML VIAL SUBQ PRN (16:35)
[2019-07-02] MEDS ORDERED: DEXTROSE 50% 50 ML SYR IVP PRN (16:35)
[2019-07-02] MEDS: NACL 0.9% 1,000 ML IV SCH (16:53)
[2019-07-02] MEDS ORDERED: MAG SULF 2000 MG/WATER PREMIX 50 ML IV SCH (17:00)
[2019-07-02] MEDS: metFORMIN 500 MG TAB PO SCH (17:22)
[2019-07-02 18:52] LABS: ANION GAP 17.1 (8-16); CARBON DIOXIDE 18.9 mmol/L (21-32); CREATININE 0.6 mg/dL (0.6-1.3)
[2019-07-02] MEDS: BLOOD GLUCOSE MONITORING 1 DEV DEV FS SCH (20:10)
[2019-07-02] MEDS: DIVALPROEX 250 MG TABEC PO SCH (20:22)
[2019-07-02] MEDS: levETIRAcetam 500 MG TAB PO SCH (20:22)
[2019-07-02] MEDS: BENZTROPINE 1 MG TAB PO SCH (20:22)
[2019-07-02] MEDS: FLUPHENAZINE 10 MG PO SCH (20:23)
[2019-07-03] VITALS: BP 94/55
[2019-07-03] MEDS: DIVALPROEX 250 MG TABEC PO SCH ×3 (04:53→20:05)
[2019-07-03] MEDS: BLOOD GLUCOSE MONITORING 1 DEV DEV FS SCH ×4 (05:48→20:10)
[2019-07-03] MEDS: NACL 0.9% 1,000 ML IV SCH ×2 (07:13→08:10)
[2019-07-03 08:00] VITALS: BP 93/54
[2019-07-03] MEDS: metFORMIN 500 MG TAB PO SCH ×2 (08:24→17:07)
[2019-07-03] MEDS: levETIRAcetam 500 MG TAB PO SCH ×2 (08:24→20:04)
[2019-07-03 10:20] LABS: BASOPHILS # (AUTO) 0.1 K/uL (0.00-0.22); BASOPHILS % (AUTO) 1.3 % (0.0-2.0); EOSINOPHILS # (AUTO) 0.2 K/uL (0-0.4); EOSINOPHILS % (AUTO) 4.5 % (0.0-4.0); HEMOGLOBIN 10.4 g/dL (12.0-16.0); LYMPHOCYTES # (AUTO) 1.9 K/uL (2.5-16.5); LYMPHOCYTES % (AUTO) 36.8 % (20.5-51.1); MEAN CORPUSCULAR HEMOGLOBIN 25 pg (27-31); MEAN CORPUSCULAR HGB CONC 33 g/dL (33-37); MONOCYTES # (AUTO) 0.7 K/uL (0.8-1.0); MONOCYTES % (AUTO) 14.1 % (1.7-9.3); NEUTROPHILS # (AUTO) 2.2 K/uL (1.8-7.7); NEUTROPHILS % (AUTO) 43.3 % (42.2-75.2); PLATELET COUNT (AUTO) 383 K/uL (140-450); RED BLOOD CELL COUNT(AUTO) 4.21 MIL/uL (4.20-5.40); RED CELL DISTRIBUTION WIDTH 16.7 % (11.6-13.7); WHITE BLOOD COUNT (AUTO) 5.2 K/uL (4.8-10.8)
[2019-07-03] MEDS ORDERED: LORazepam 2 MG/ML VIAL IM/IVP PRN (10:20)
[2019-07-03 10:54] LABS: ANION GAP 14.5 (8-16); CARBON DIOXIDE 22.1 mmol/L (21-32); CREATININE 0.8 mg/dL (0.6-1.3); POTASSIUM 4.6 mmol/L (3.5-5.1)
[2019-07-03 10:58] LABS: ALBUMIN 3.5 g/dL (3.4-5.0); MAGNESIUM 2.4 mg/dL (1.8-2.4); PHOSPHORUS 3.9 mg/dL (2.5-4.9); TOTAL BILIRUBIN 0.2 mg/dL (0.0-1.0)
[2019-07-03 15:15] LABS: CHOL/HDL RATIO 2.9 (1-4.5)
[2019-07-03 16:00] VITALS: BP 92/58
[2019-07-03] MEDS: BENZTROPINE 1 MG TAB PO SCH (20:04)
[2019-07-03] MEDS: FLUPHENAZINE 10 MG PO SCH (20:06)
[2019-07-04 01:06] VITALS: BP 102/64
[2019-07-04] MEDS: NACL 0.9% 1,000 ML IV SCH ×2 (03:07→09:30)
[2019-07-04] MEDS: DIVALPROEX 250 MG TABEC PO SCH (05:53)
[2019-07-04] MEDS: BLOOD GLUCOSE MONITORING 1 DEV DEV FS SCH ×4 (05:53→20:45)
[2019-07-04 06:18] LABS: BASOPHILS # (AUTO) 0.1 K/uL (0.00-0.22); BASOPHILS % (AUTO) 1.3 % (0.0-2.0); EOSINOPHILS # (AUTO) 0.4 K/uL (0-0.4); EOSINOPHILS % (AUTO) 6.7 % (0.0-4.0); HEMATOCRIT 31.4 % (36-48); HEMOGLOBIN 10.3 g/dL (12.0-16.0); LYMPHOCYTES # (AUTO) 2.3 K/uL (2.5-16.5); MEAN CORPUSCULAR HEMOGLOBIN 25 pg (27-31); MEAN CORPUSCULAR HGB CONC 33 g/dL (33-37); MEAN CORPUSCULAR VOLUME 75.5 fL (80-94); MONOCYTES # (AUTO) 0.6 K/uL (0.8-1.0); MONOCYTES % (AUTO) 10.6 % (1.7-9.3); NEUTROPHILS # (AUTO) 2.3 K/uL (1.8-7.7); NEUTROPHILS % (AUTO) 41.4 % (42.2-75.2); PLATELET COUNT (AUTO) 352 K/uL (140-450); RED BLOOD CELL COUNT(AUTO) 4.16 MIL/uL (4.20-5.40); WHITE BLOOD COUNT (AUTO) 5.7 K/uL (4.8-10.8)
[2019-07-04 06:46] LABS: MAGNESIUM 1.9 mg/dL (1.8-2.4); PHOSPHORUS 4.3 mg/dL (2.5-4.9)
[2019-07-04 08:00] VITALS: BP 80/54
[2019-07-04] MEDS: levETIRAcetam 500 MG TAB PO SCH ×2 (08:24→20:25)
[2019-07-04] MEDS: metFORMIN 500 MG TAB PO SCH ×2 (08:24→17:08)
[2019-07-04 08:25] LABS: CREATININE 0.7 mg/dL (0.6-1.3)
[2019-07-04 08:45] VITALS: BP 99/42
[2019-07-04 10:01] LABS: APPEARANCE,URINE CLEAR (CLEAR); BILIRUBIN,URINE NEGATIVE (NEGATIVE); BLOOD, URINE NEGATIVE (NEGATIVE); COLOR,URINE YELLOW (YELLOW); LEUKOCYTE ESTERASE ,URINE NEGATIVE (NEGATIVE); NITRITE, URINE NEGATIVE (NEGATIVE); UGLUCOSE NEGATIVE (NEGATIVE)
[2019-07-04 10:05] LABS: BARBITURATE, URINE NEG. ng/ml (NEG <=200); BENZODIAZEPINE, URINE NEG. ng/mL (NEG <=200); CANNABINOID, URINE NEG. ng/mL (NEG <=50); COCAINE, URINE NEG. ng/mL (NEG <=300); OPIATE, URINE NEG. ng/mL (NEG <=2000); PHENCYCLIDINE SCREEN,URINE NEG. ng/mL (NEG <=25)
[2019-07-04] MEDS: DIVALPROEX 500 MG TABEC PO SCH ×2 (13:21→20:25)
[2019-07-04 13:25] VITALS: BP 104/31
[2019-07-04] MEDS ORDERED: MAGNESIUM OXIDE 400 MG TAB PO SCH (13:55)
[2019-07-04 14:03] VITALS: BP 107/59
[2019-07-04 16:00] VITALS: BP 106/58
[2019-07-04] MEDS ORDERED: IRON SUCROSE COMPLEX 100 MG/5 ML VIAL IVP SCH (18:00)
[2019-07-04] MEDS: FERROUS SULFATE 325 MG TABEC PO SCH (18:44)
[2019-07-04] MEDS: BENZTROPINE 1 MG TAB PO SCH (20:25)
[2019-07-04] MEDS: FLUPHENAZINE 10 MG PO SCH (20:28)
[2019-07-05] VITALS: BP 99/62
[2019-07-05] MEDS: DIVALPROEX 500 MG TABEC PO SCH ×2 (05:09→13:15)
[2019-07-05] MEDS: BLOOD GLUCOSE MONITORING 1 DEV DEV FS SCH ×2 (05:49→11:30)
[2019-07-05 07:40] LABS: BASOPHILS # (AUTO) 0.1 K/uL (0.00-0.22); BASOPHILS % (AUTO) 0.9 % (0.0-2.0); EOSINOPHILS # (AUTO) 0.3 K/uL (0-0.4); EOSINOPHILS % (AUTO) 4.9 % (0.0-4.0); HEMATOCRIT 29.8 % (36-48); HEMOGLOBIN 9.7 g/dL (12.0-16.0); LYMPHOCYTES # (AUTO) 1.6 K/uL (2.5-16.5); LYMPHOCYTES % (AUTO) 24.2 % (20.5-51.1); MEAN CORPUSCULAR HEMOGLOBIN 25 pg (27-31); MEAN CORPUSCULAR HGB CONC 33 g/dL (33-37); MEAN CORPUSCULAR VOLUME 76.1 fL (80-94); MONOCYTES # (AUTO) 0.5 K/uL (0.8-1.0); MONOCYTES % (AUTO) 8.1 % (1.7-9.3); NEUTROPHILS % (AUTO) 61.9 % (42.2-75.2); PLATELET COUNT (AUTO) 363 K/uL (140-450); RED BLOOD CELL COUNT(AUTO) 3.92 MIL/uL (4.20-5.40); RED CELL DISTRIBUTION WIDTH 16.9 % (11.6-13.7); WHITE BLOOD COUNT (AUTO) 6.5 K/uL (4.8-10.8)
[2019-07-05 08:00] VITALS: BP 101/51
[2019-07-05] MEDS: FERROUS SULFATE 325 MG TABEC PO SCH (08:29)
[2019-07-05] MEDS: metFORMIN 500 MG TAB PO SCH (08:29)
[2019-07-05] MEDS: levETIRAcetam 500 MG TAB PO SCH (08:29)
[2019-07-05 08:47] LABS: ANION GAP 14.9 (8-16); CARBON DIOXIDE 23.2 mmol/L (21-32); CREATININE 0.7 mg/dL (0.6-1.3); POTASSIUM 4.1 mmol/L (3.5-5.1)
[2019-07-05] MEDS ORDERED: DIVA500E2 PO (09:46)
[2019-07-05 10:54] LABS: MAGNESIUM 1.9 mg/dL (1.8-2.4); PHOSPHORUS 4.3 mg/dL (2.5-4.9)
[2019-07-05] MEDS ORDERED: MUPIROCIN CA NASAL 2% 1GM TUBE NS SCH (12:50)
[2019-07-05] MEDS ORDERED: CHLORHEXADINE GLUC 2% CLOTH TP SCH (12:50)
[2019-07-05] MEDS ORDERED: FERR325E14 PO (14:07)
[2019-07-08 06:07] LABS: FOLIC ACID 11.3 ng/mL (>3.0)
== END 2019-07-05 16:15 | disposition home or self-care (01) | DRG 100 ==
LOC: MED 13:30 → MTU 14:33
PROVIDERS: ADMIT General Practice; ATTEND General Practice
DX: G40.909 Epilepsy, unspecified, not intractable, without status epilepticus (principal); G93.41 Metabolic encephalopathy; E87.1 Hypo-osmolality and hyponatremia; F20.9 Schizophrenia, unspecified; E11.9 Type 2 diabetes mellitus without complications; E83.42 Hypomagnesemia; D50.9 Iron deficiency anemia, unspecified; G24.01 Drug induced subacute dyskinesia; Z79.84 Long term (current) use of oral hypoglycemic drugs; Z79.899 Other long term (current) drug therapy; Z87.891 Personal history of nicotine dependence
CPT/HCPCS: 36415; 71045; 80048; 80053; 80173; 80305; 81002; 81003; 81025; 82272; 82607; 82728; 82746; 82948; 83540; 83605; 83735; 83930; 83935; 84100; 84300; 84436; 84443; 85025; 85045; 85610; 87040; 87081; 96360; 99285; J1756; J1815; J2405; J3475; J7030; Q0092

== ENCOUNTER 2021-12-17 17:21 | Emergency (ER) | payer OTHER ==
[~2021-12-17] VITALS: Ht 162.6 cm; Wt 61.2 kg
[~2021-12-17 17:21] MED LIST changes: -BENZ-248 PO; -DIVA250E1 PO; +FLUP5TAB PO; -KEP500 PO; -LACT10CA1 PO; +LEVE250T1 PO; -METF500T PO; -PRO1 PO; -SULF-59 PO; -VALB40CA PO; +[UNRECOGNIZED DRUG - CODE] PO
[2021-12-17 17:32] VITALS: BP 129/67
--- NOTE | 2021-12-17 18:06 | NUR ---
DOMINIQUE LAZO [facility]
[2021-12-17] MEDS ORDERED: NACL 0.9% 1,000 ML IV ONE (18:10)
--- NOTE | 2021-12-17 18:11 | NUR ---
41Y FEMALE BIBA FROM HOME DUE TO ALOC S/P METH USE. PER EMS PT ADMITTED TO USING METH ON FRIDAY. PT CURRENTLY A&OX3, BUT CONTINUES TO STATES "2316." PT DENIES ANY CHEST PAIN, SOB, FEVER/CHILLS, N/V AT THIS TIME. PT ALSO DENIES ANY SI AT THIS TIME. PT CURRENTLY ANSWERING QUESTIONS, BUT IS FIDGETING AROUND. PT CURRENTLY PIN ROLLING AND LOOKING AROUND. BREATH SOUNDS CLEAR. PT AMBULATORY AT THIS TIME. PT PLACED ON MOTOR VEHICLE OPERATOR ROAD SUPERVISOR BEDSIDE AND PUT INTO GOWN. PMH: SCHIZO, METH USE NKA
--- NOTE | 2021-12-17 18:23 | NUR ---
18G IV ESTABLISHED IN R AC AND BLOODWORK COLLECTED. BLOOD HANDED TO SPINNING BATH PERSON [facility]
[2021-12-17 18:47] LABS: BASOPHILS # (AUTO) 0.1 K/uL (0.00-0.22); BASOPHILS % (AUTO) 0.8 % (0.0-2.0); EOSINOPHILS # (AUTO) 0.2 K/uL (0-0.4); EOSINOPHILS % (AUTO) 3.2 % (0.0-4.0); HEMATOCRIT 38.7 % (36-48); HEMOGLOBIN 13.4 g/dL (12.0-16.0); LYMPHOCYTES # (AUTO) 1.7 K/uL (2.5-16.5); LYMPHOCYTES % (AUTO) 24.4 % (20.5-51.1); MEAN CORPUSCULAR HEMOGLOBIN 31 pg (27-31); MEAN CORPUSCULAR HGB CONC 35 g/dL (33-37); MEAN CORPUSCULAR VOLUME 90.6 fL (80-94); MONOCYTES # (AUTO) 0.8 K/uL (0.8-1.0); MONOCYTES % (AUTO) 10.8 % (1.7-9.3); NEUTROPHILS # (AUTO) 4.3 K/uL (1.8-7.7); NEUTROPHILS % (AUTO) 60.8 % (42.2-75.2); PLATELET COUNT (AUTO) 322 K/uL (140-450); RED BLOOD CELL COUNT(AUTO) 4.27 MIL/uL (4.20-5.40); RED CELL DISTRIBUTION WIDTH 13.2 % (11.6-13.7)
[2021-12-17 19:07] LABS: ANION GAP 14.5 (8-16); ASPARTATE AMINOTRANSFERASE 24 U/L (15-37); CARBON DIOXIDE 24.3 mmol/L (21-32); CHLORIDE 99 mmol/L (98-107); CREATININE 0.6 mg/dL (0.6-1.3); GFR ARICAN-AMERICAN 142 mL/min (>90); GLUCOSE 102 mg/dL (74-106); POTASSIUM 3.8 mmol/L (3.5-5.1); SALICYLATE 4.8 mg/dL (2.8-20.0); SODIUM SERUM 134 mmol/L (136-145); TOTAL BILIRUBIN 0.4 mg/dL (0.0-1.0); UREA NITROGEN, BLOOD 8 mg/dL (7-18)
[2021-12-17 19:15] LABS: ACETAMINOPHEN < 0.5 ug/ml (10-30)
--- NOTE | 2021-12-17 19:16 | NUR ---
Pt report given to MARILYNN ARMSTRONG. Transfer of care at this time.
[2021-12-17 19:46] LABS: BARBITURATE, URINE NEGATIVE ng/ml (NEG <=200); BENZODIAZEPINE, URINE NEGATIVE ng/mL (NEG <=200); CANNABINOID, URINE NEGATIVE ng/mL (NEG <=50); COCAINE, URINE NEGATIVE ng/mL (NEG <=300); OPIATE, URINE NEGATIVE ng/mL (NEG <=2000); PHENCYCLIDINE SCREEN,URINE NEGATIVE ng/mL (NEG <=25)
--- NOTE | 2021-12-17 20:04 | NUR ---
assumed patient care, pt is aox4, denies any active complaints at this time. Pt walked to restroom and instructed to save urine specimen. Urine hcg done with negative result. Specimen sent to lab for toxicology.
--- NOTE | 2021-12-17 20:37 | NUR ---
Patient cleared for dc, pt was brought in by ambulance from home. For safe discharge, patient's parent Pratibha Zimmerman called to picker patient ([phone])
[2021-12-17 21:10] VITALS: BP 129/75
--- NOTE | 2021-12-17 21:10 | NUR ---
Per patient's parent Pratibha Zimmerman, she is on the way to orange picker machine operator daughter. Pt walked to [facility] area awaiting parent, Iv line discontinued, VS stable on DC.
== END 2021-12-17 20:37 | disposition home or self-care (01) ==
LOC: MED 17:21
DX: F15.10 Other stimulant abuse, uncomplicated (principal); E11.9 Type 2 diabetes mellitus without complications; Z79.899 Other long term (current) drug therapy
CPT/HCPCS: 36415; 80053; 80305; 81025; 85025; 96360; 99285; G0480; G0482; J7030

== ENCOUNTER 2021-12-22 16:52 | Emergency (ER) | payer OTHER ==
[~2021-12-22] VITALS: Ht 170.2 cm; Wt 59.0 kg
--- NOTE | 2021-12-22 16:55 | NUR ---
PT TO BED 08 AT THIS TIME BY EMS
[2021-12-22 16:58] VITALS: BP 139/98
[2021-12-22] MEDS ORDERED: BENZTROPINE 2 MG/2 ML AMP IM ONE (17:05)
[2021-12-22] MEDS ORDERED: LORazepam 1 MG TAB PO ONE (17:05)
--- NOTE | 2021-12-22 17:10 | NUR ---
41Y FEMALE BIBA FROM HOME DUE TO ALTERED X2 DAYS. PER EMS MOM STATED "SHE HAS BEEN ACTING DIFFERENT X2 DAYS AND PATIENT IS NORMALLY A&OX4." PT IS CURRENTLY EXPERINICING LIP SMACKING, PILL ROLLING, AND TWITCHING OF LEGS. PT CURRENTLY A&OX2 PMH: METH USE, SCHIZOPHRENIA, DM NKA
[2021-12-22 17:29] LABS: BASOPHILS # (AUTO) 0.1 K/uL (0.00-0.22); BASOPHILS % (AUTO) 0.6 % (0.0-2.0); EOSINOPHILS # (AUTO) 0.3 K/uL (0-0.4); EOSINOPHILS % (AUTO) 3.6 % (0.0-4.0); HEMATOCRIT 38.8 % (36-48); HEMOGLOBIN 13.3 g/dL (12.0-16.0); LYMPHOCYTES # (AUTO) 2.3 K/uL (2.5-16.5); LYMPHOCYTES % (AUTO) 25.6 % (20.5-51.1); MEAN CORPUSCULAR HEMOGLOBIN 31 pg (27-31); MEAN CORPUSCULAR HGB CONC 34 g/dL (33-37); MEAN CORPUSCULAR VOLUME 90.9 fL (80-94); MONOCYTES # (AUTO) 0.8 K/uL (0.8-1.0); MONOCYTES % (AUTO) 9.4 % (1.7-9.3); NEUTROPHILS # (AUTO) 5.4 K/uL (1.8-7.7); NEUTROPHILS % (AUTO) 60.8 % (42.2-75.2); PLATELET COUNT (AUTO) 339 K/uL (140-450); RED BLOOD CELL COUNT(AUTO) 4.26 MIL/uL (4.20-5.40); RED CELL DISTRIBUTION WIDTH 13.2 % (11.6-13.7)
--- NOTE | 2021-12-22 17:31 | NUR ---
ua sent to lab
[2021-12-22 17:53] LABS: ALBUMIN 4.1 g/dL (3.4-5.0); ANION GAP 13.7 (8-16); ASPARTATE AMINOTRANSFERASE 25 U/L (15-37); CARBON DIOXIDE 25.7 mmol/L (21-32); CHLORIDE 100 mmol/L (98-107); CREATININE 0.7 mg/dL (0.6-1.3); GFR ARICAN-AMERICAN 119 mL/min (>90); GLUCOSE 106 mg/dL (74-106); POTASSIUM 3.4 mmol/L (3.5-5.1); SODIUM SERUM 136 mmol/L (136-145); TOTAL BILIRUBIN 0.5 mg/dL (0.0-1.0); UREA NITROGEN, BLOOD 13 mg/dL (7-18)
[2021-12-22] MEDS ORDERED: POTASSIUM CHLORIDE 10 MEQ TABER PO ONE (18:25)
[2021-12-22] MEDS ORDERED: NACL 0.9% 1,000 ML IV ONE (18:50)
--- NOTE | 2021-12-22 19:19 | NUR ---
GAVE REPORT TO MARILYNN BRANDON. TRANSFER OF CARE AT THIS TIME.
[2021-12-22 19:31] LABS: BARBITURATE, URINE NEGATIVE ng/ml (NEG <=200)
[2021-12-22 19:32] LABS: BENZODIAZEPINE, URINE NEGATIVE ng/mL (NEG <=200); CANNABINOID, URINE NEGATIVE ng/mL (NEG <=50); COCAINE, URINE NEGATIVE ng/mL (NEG <=300); OPIATE, URINE NEGATIVE ng/mL (NEG <=2000); PHENCYCLIDINE SCREEN,URINE NEGATIVE ng/mL (NEG <=25)
--- NOTE | 2021-12-22 19:35 | NUR ---
DR. JUNIOR AT BEDSIDE DISCUSSING POC
--- NOTE | 2021-12-22 19:55 | NUR ---
SWABS OBTAINED AND SENT TO LAB
--- NOTE | 2021-12-22 20:38 | NUR ---
TELEPSYCH DOCTOR, DR. JOHNSON, SPEAKING WITH PATIENT.
--- NOTE | 2021-12-22 20:55 | NUR ---
PT PULLED IV OUT, TOOK BAG OF BELONGINGS AND STARTED TO LEAVE. ENCOURAGED BACK TO ROOM AND PT SAYS "I WANT TO LEAVE"
--- NOTE | 2021-12-22 21:04 | NUR ---
ATTEMPTING TO LEAVE AGAIN
--- NOTE | 2021-12-22 21:07 | NUR ---
STEPS OUT OF ROOM AND ASKS "ARE THE DEMONS OUT THERE ?"
[2021-12-22] MEDS ORDERED: OLANZapine 5 MG ODT PO ONE (21:20)
[2021-12-22] MEDS ORDERED: levETIRAcetam 500 MG TAB PO ONE (21:20)
--- NOTE | 2021-12-22 21:20 | NUR ---
RETURN CALL FROM DR. JOHNSON WHO SPOKE WITH DR. JUNIOR
[2021-12-22 21:27] LABS: SALICYLATE 4.3 mg/dL (2.8-20.0)
--- NOTE | 2021-12-22 21:33 | NUR ---
PT MOVED TO ER BED 6
[2021-12-22 21:36] LABS: ACETAMINOPHEN < 0.5 ug/ml (10-30)
--- NOTE | 2021-12-22 23:45 | NUR ---
Received intake. Information has been faxed out to the following facilities for review for placement. [facility]/ [facility]/ [facility]/ [facility]/ [facility]/ [facility] Will keep ER informed of any updates
--- NOTE | 2021-12-23 | NUR ---
RESTING IN BED WITH EYES CLOSED, RESPIRATIONS REGULAR AND UNLABORED
--- NOTE | 2021-12-23 04:00 | NUR ---
awake, ambulating at bedside. returns to bed with minimal encouragment
--- NOTE | 2021-12-23 04:20 | NUR ---
REPORT CALLED TO [facility].
--- NOTE | 2021-12-23 06:38 | NUR ---
AWAKE, RESTING COMFORTABLY IN BED
[2021-12-23 07:46] VITALS: BP 126/87
--- NOTE | 2021-12-23 07:50 | NUR ---
Patient to be transferred to [facility]. Is being transferred due to HIGHER LEVEL OF CARE. Receiving facility has accepting physician and available space. ER physician has signed transfer form. Patient or responsible democrat has agreed to transfer and signed form. Patient belongings inventoried and will be sent with patient. Copy of nursing notes, lab reports, EKG, Physicians Orders and X-rays to be sent with patient. Report called to PM RN at receiving facility. [facility] ambulance service has been called for transfer. ETA is NOW.
--- NOTE | 2021-12-23 07:51 | NUR ---
PT LEFT VIA [facility].
--- NOTE | 2021-12-23 07:52 | NUR ---
The patient's care was reviewed and supervised by Yaneli Tubbs RN, RN.
--- NOTE | 2021-12-24 11:55 | NUR ---
LATE ENTRY- IV NORMAL SALINE DISCONTINUED AT 0750.
== END 2021-12-23 07:48 ==
LOC: MED 16:52
DX: F91.9 Conduct disorder, unspecified (principal); Z20.822 Contact with and (suspected) exposure to COVID-19; F79 Unspecified intellectual disabilities; E11.9 Type 2 diabetes mellitus without complications; F20.9 Schizophrenia, unspecified; F15.90 Other stimulant use, unspecified, uncomplicated; Z74.1 Need for assistance with personal care; Z79.899 Other long term (current) drug therapy
CPT/HCPCS: 36415; 80053; 80305; 81002; 81025; 85025; 87426; 96360; 96372; 99285; G0480; G0482; J0515; U0003

== ENCOUNTER 2022-10-24 18:39 | Emergency (ER) | payer OTHER ==
[~2022-10-24] VITALS: Ht 165.1 cm; Wt 59.0 kg
[2022-10-24 18:49] VITALS: BP 130/82
--- NOTE | 2022-10-24 19:03 | NUR ---
AMY MOTHER: [phone]
--- NOTE | 2022-10-24 19:12 | NUR ---
pt to bed 5
--- NOTE | 2022-10-24 19:24 | NUR ---
BIBA FROM HOME. MOM CALLED EMS & REQUESTED DRUG SCREEN. C/O LOSS OF APPETITE & BEHAVIORAL CHANGES X 3 DAYS. AOX1 ONLY NAME. DENIES DRUG ABUSE. HX OF SEIZURE, DM, SCHIZOPHRENIA, MENTAL DELAY. PER EMS BS 158.
[2022-10-24 19:33] LABS: BASOPHILS # (AUTO) 0.1 K/uL (0.00-0.22); BASOPHILS % (AUTO) 1.3 % (0.0-2.0); EOSINOPHILS # (AUTO) 0.4 K/uL (0-0.4); EOSINOPHILS % (AUTO) 6.5 % (0.0-4.0); HEMATOCRIT 37.8 % (36-48); HEMOGLOBIN 12.7 g/dL (12.0-16.0); LYMPHOCYTES # (AUTO) 2.1 K/uL (2.5-16.5); LYMPHOCYTES % (AUTO) 32.8 % (20.5-51.1); MEAN CORPUSCULAR HEMOGLOBIN 31 pg (27-31); MEAN CORPUSCULAR HGB CONC 34 g/dL (33-37); MEAN CORPUSCULAR VOLUME 92.1 fL (80-94); MONOCYTES # (AUTO) 0.7 K/uL (0.8-1.0); MONOCYTES % (AUTO) 10.1 % (1.7-9.3); NEUTROPHILS # (AUTO) 3.2 K/uL (1.8-7.7); NEUTROPHILS % (AUTO) 49.3 % (42.2-75.2); PLATELET COUNT (AUTO) 364 K/uL (140-450); RED CELL DISTRIBUTION WIDTH 13.2 % (11.6-13.7); WHITE BLOOD COUNT (AUTO) 6.5 K/uL (4.8-10.8)
[2022-10-24 19:46] LABS: APPEARANCE,URINE CLEAR (CLEAR); BILIRUBIN,URINE NEGATIVE (NEGATIVE); BLOOD, URINE NEGATIVE (NEGATIVE); LEUKOCYTE ESTERASE ,URINE NEGATIVE (NEGATIVE); NITRITE, URINE NEGATIVE (NEGATIVE); UGLUCOSE NEGATIVE (NEGATIVE)
[2022-10-24 19:48] LABS: COLOR,URINE YELLOW (YELLOW)
[2022-10-24 19:53] LABS: ALBUMIN 3.5 g/dL (3.4-5.0); ANION GAP 14.8 (8-16); CARBON DIOXIDE 27.7 mmol/L (21-32); CREATININE 0.7 mg/dL (0.6-1.3); POTASSIUM 3.5 mmol/L (3.5-5.1); TOTAL BILIRUBIN 0.3 mg/dL (0.0-1.0)
--- NOTE | 2022-10-24 19:53 | NUR ---
Patient being evaluated by physician at bedside.
--- NOTE | 2022-10-24 20:00 | NUR ---
PT GIVEN JUICE/ SNACKS. PT ABLE TO FOLLOW COMMANDS/ TOLERATED WELL
[2022-10-24 20:09] LABS: BARBITURATE, URINE NEGATIVE ng/ml (NEG <=200); BENZODIAZEPINE, URINE NEGATIVE ng/mL (NEG <=200); CANNABINOID, URINE NEGATIVE ng/mL (NEG <=50); COCAINE, URINE NEGATIVE ng/mL (NEG <=300); OPIATE, URINE NEGATIVE ng/mL (NEG <=2000); PHENCYCLIDINE SCREEN,URINE NEGATIVE ng/mL (NEG <=25)
[2022-10-24] MEDS ORDERED: DIPH25TA53 PO (20:28)
--- NOTE | 2022-10-24 20:42 | NUR ---
CALLED PT MOTHER-UPDATED ON DISCHARGE. PENDING RIDE
[2022-10-24 21:43] VITALS: BP 130/82
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
--- NOTE | 2022-10-24 21:43 | NUR ---
Patient discharged with v/s stable. Written and verbal after care instructions given and explained. Patient alert, oriented and verbalized understanding of instructions. Ambulatory with by parent. All questions addressed prior to discharge. ID band removed. Patient advised to follow up with PMD. Rx of BENADRYL given. Patient educated on indication of medication including possible reaction and side effects. Opportunity to ask questions provided and answered.
== END 2022-10-24 21:43 | disposition home or self-care (01) ==
LOC: MED 18:39
DX: F15.90 Other stimulant use, unspecified, uncomplicated (principal); R45.1 Restlessness and agitation; G25.71 Drug induced akathisia; E11.9 Type 2 diabetes mellitus without complications; F20.9 Schizophrenia, unspecified; Z79.899 Other long term (current) drug therapy
CPT/HCPCS: 36415; 80053; 80305; 81003; 85025; 99283; Q0163

== ENCOUNTER 2022-11-14 19:36 | Emergency (ER) | payer OTHER ==
[~2022-11-14] VITALS: Ht 157.5 cm; Wt 61.2 kg
[~2022-11-14 19:36] MED LIST changes: +DIPH25TA53 PO
--- NOTE | 2022-11-14 19:39 | NUR ---
Dr. Horton examining patient.
[2022-11-14 19:45] VITALS: BP 135/90
[2022-11-14] MEDS ORDERED: ceFAZolin 1,000 MG VIAL IM ONE (19:45)
--- NOTE | 2022-11-14 19:50 | NUR ---
PT VIOLET SIFUENTES. TAKEN TO BED 12
--- NOTE | 2022-11-14 19:56 | NUR ---
AMADO BRISCOE AT [facility]
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
--- NOTE | 2022-11-14 20:02 | NUR ---
[place] PD officers left.
[2022-11-14 20:05] LABS: BASOPHILS # (AUTO) 0.1 K/uL (0.00-0.22); BASOPHILS % (AUTO) 0.7 % (0.0-2.0); EOSINOPHILS # (AUTO) 0.5 K/uL (0-0.4); EOSINOPHILS % (AUTO) 3.5 % (0.0-4.0); HEMATOCRIT 40.8 % (36-48); HEMOGLOBIN 13.9 g/dL (12.0-16.0); LYMPHOCYTES # (AUTO) 1.7 K/uL (2.5-16.5); LYMPHOCYTES % (AUTO) 11.4 % (20.5-51.1); MEAN CORPUSCULAR HEMOGLOBIN 31 pg (27-31); MEAN CORPUSCULAR HGB CONC 34 g/dL (33-37); MEAN CORPUSCULAR VOLUME 90.8 fL (80-94); MONOCYTES # (AUTO) 0.7 K/uL (0.8-1.0); MONOCYTES % (AUTO) 5.1 % (1.7-9.3); NEUTROPHILS # (AUTO) 11.5 K/uL (1.8-7.7); NEUTROPHILS % (AUTO) 79.3 % (42.2-75.2); PLATELET COUNT (AUTO) 431 K/uL (140-450); RED BLOOD CELL COUNT(AUTO) 4.49 MIL/uL (4.20-5.40); RED CELL DISTRIBUTION WIDTH 13.6 % (11.6-13.7); WHITE BLOOD COUNT (AUTO) 14.5 K/uL (4.8-10.8)
--- NOTE | 2022-11-14 20:08 | NUR ---
Patient's nose and face cleaned. engineering technical writer stated she "will take patient to CT soon." Patient is A/Ox4, lying in bed, no c/o pain or s/s of distress, on monitor.
[2022-11-14 20:15] LABS: ANION GAP 11.1 (8-16); CARBON DIOXIDE 29.7 mmol/L (21-32); CREATININE 0.7 mg/dL (0.6-1.3); POTASSIUM 3.8 mmol/L (3.5-5.1)
[2022-11-14] MEDS ORDERED: WATER STERILE 10 ML MC ONE (20:19)
--- NOTE | 2022-11-14 20:32 | NUR ---
ER physician at patient bedside.
--- NOTE | 2022-11-14 20:34 | NUR ---
PT TAKEN TO CT
--- NOTE | 2022-11-14 20:50 | NUR ---
PT RETURN FROM CT
[2022-11-14] MEDS ORDERED: LIDOCAINE 2% 1000 MG/50 ML VIAL INJ ONE (21:10)
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
--- NOTE | 2022-11-14 21:30 | NUR ---
Patient stated she "does not want Lidocaine or suturing."
--- NOTE | 2022-11-14 22:00 | NUR ---
Patient A/Ox4, resting in bed, chest rise and fall symmetrical, no s/s of distress, on monitor.
--- NOTE | 2022-11-14 23:30 | NUR ---
Dr. Stout at bedside applying dermabond to patient's laceration.
--- NOTE | 2022-11-14 23:45 | NUR ---
Patient A/Ox4, resting in bed, chest rise and fall symmetrical, no s/s of distress, on monitor.
[2022-11-14] MEDS ORDERED: CLIN300C2 PO (23:47)
[2022-11-14] MEDS ORDERED: ACET-10509 PO (23:47)
--- NOTE | 2022-11-14 23:53 | NUR ---
Wilder davissofia in [facility] - 11/15/22 at 0000 by [id number] Patient's family called at [phone], verbally informed that patient is alert and oriented, ambulatory, excellent gait, and patient left with all her belongings, but patient refused to take her discharge paperwork. Patient's family verbalized understanding, no further questions from family.
[2022-11-14 23:58] VITALS: BP 124/81
--- NOTE | 2022-11-14 23:58 | NUR ---
Wilder davissofia in [facility] - 11/15/22 at 0000 by [id number] Patient's family called at [phone], verbally informed that patient is alert and oriented, ambulatory, excellent gait, and patient left with all her belongings, but patient refused to take her discharge paperwork. Patient's family verbalized understanding, no further questions from family.
--- NOTE | 2022-11-14 23:58 | NUR ---
Patient discharged with v/s stable. Written and verbal after care instructions given and explained. Patient verbalized understanding. Ambulatory with steady gait. All questions addressed prior to discharge. Advised to follow up with PMD.
--- NOTE | 2022-11-15 | NUR ---
Patient's family called at [phone], verbally informed that patient is alert and oriented, ambulatory, excellent gait, and patient left with all her belongings, but patient refused to take her discharge paperwork. Patient's family verbalized understanding, no further questions from family.
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
== END 2022-11-14 23:58 | disposition home or self-care (01) ==
LOC: MED 19:36
DX: S01.21XA Laceration without foreign body of nose, initial encounter (principal); E11.9 Type 2 diabetes mellitus without complications; Z86.69 Personal history of other diseases of the nervous system and sense organs; Z79.899 Other long term (current) drug therapy; Y04.0XXA Assault by unarmed brawl or fight, initial encounter; Y92.009 Unspecified place in unspecified non-institutional (private) residence as the place of occurrence of the external cause; Y93.89 Activity, other specified; Y99.8 Other external cause status
CPT/HCPCS: 12013; 36415; 70450; 70486; 72125; 80048; 84703; 85025; 90471; 90715; 96372; 99285; J0690; J2001

== ENCOUNTER 2023-03-15 23:31 | Emergency (ER) | payer OTHER ==
[~2023-03-15] VITALS: Ht 157.5 cm; Wt 51.7 kg
[~2023-03-15 23:31] MED LIST changes: +ACET-10509 PO; +CLIN300C2 PO
--- NOTE | 2023-03-15 23:32 | NUR ---
PT VIOLET ALS. TAKEN TO BED 9
[2023-03-15 23:34] VITALS: BP 134/87
--- NOTE | 2023-03-15 23:35 | NUR ---
Dr. Saunders examining patient.
[2023-03-15] MEDS ORDERED: NACL 0.9% 1,000 ML IV ONE (23:55)
[2023-03-16 00:21] LABS: BASOPHILS # (AUTO) 0.1 K/uL (0.00-0.22); BASOPHILS % (AUTO) 0.8 % (0.0-2.0); EOSINOPHILS # (AUTO) 0.6 K/uL (0-0.4); EOSINOPHILS % (AUTO) 5.9 % (0.0-4.0); HEMATOCRIT 32.4 % (36-48); HEMOGLOBIN 11.1 g/dL (12.0-16.0); LYMPHOCYTES # (AUTO) 3.1 K/uL (2.5-16.5); LYMPHOCYTES % (AUTO) 33.4 % (20.5-51.1); MEAN CORPUSCULAR HEMOGLOBIN 31 pg (27-31); MEAN CORPUSCULAR HGB CONC 34 g/dL (33-37); MEAN CORPUSCULAR VOLUME 91.3 fL (80-94); MONOCYTES # (AUTO) 0.9 K/uL (0.8-1.0); MONOCYTES % (AUTO) 9.3 % (1.7-9.3); NEUTROPHILS # (AUTO) 4.8 K/uL (1.8-7.7); NEUTROPHILS % (AUTO) 50.6 % (42.2-75.2); PLATELET COUNT (AUTO) 312 K/uL (140-450); RED BLOOD CELL COUNT(AUTO) 3.55 MIL/uL (4.20-5.40); RED CELL DISTRIBUTION WIDTH 13.1 % (11.6-13.7); WHITE BLOOD COUNT (AUTO) 9.4 K/uL (4.8-10.8)
[2023-03-16 00:36] LABS: ANION GAP 6.7 (8-16); CARBON DIOXIDE 26.2 mmol/L (21-32); CREATININE 0.5 mg/dL (0.6-1.3); TOTAL BILIRUBIN 0.3 mg/dL (0.0-1.0)
[2023-03-16 00:40] LABS: POTASSIUM 2.9 mmol/L (3.5-5.1)
[2023-03-16] MEDS ORDERED: KCL 20 MEQ IN 100 mL PREMIX 100 ML IV ONE (00:45)
[2023-03-16 01:50] LABS: APPEARANCE,URINE CLEAR (CLEAR); BILIRUBIN,URINE NEGATIVE (NEGATIVE); BLOOD, URINE NEGATIVE (NEGATIVE); COLOR,URINE YELLOW (YELLOW); LEUKOCYTE ESTERASE ,URINE NEGATIVE (NEGATIVE); NITRITE, URINE NEGATIVE (NEGATIVE); PH,URINE 6.5 (5.0-9.0); UGLUCOSE TRACE (NEGATIVE)
[2023-03-16 01:58] LABS: BARBITURATE, URINE NEGATIVE ng/ml (NEG <=200); BENZODIAZEPINE, URINE NEGATIVE ng/mL (NEG <=200); CANNABINOID, URINE NEGATIVE ng/mL (NEG <=50); COCAINE, URINE NEGATIVE ng/mL (NEG <=300); OPIATE, URINE NEGATIVE ng/mL (NEG <=2000); PHENCYCLIDINE SCREEN,URINE NEGATIVE ng/mL (NEG <=25)
[2023-03-16 02:20] LABS: RBC,URINE 0-5 /HPF (0-5)
--- NOTE | 2023-03-16 04:23 | NUR ---
ambulated patient to the bathroom with assistance. patient tolerated well but cannot ambulate alone.
--- NOTE | 2023-03-16 07:12 | NUR ---
Pt report given to Alla DE GUZMAN. Transfer of care at this time.
--- NOTE | 2023-03-16 07:13 | NUR ---
Report recieved from MARILYNN Bryson for transfer of care.
--- NOTE | 2023-03-16 07:58 | NUR ---
Attempted to road test patient, patient is unsteady ambulating.
--- NOTE | 2023-03-16 08:16 | NUR ---
The patient's care was reviewed and supervised by NO CURZ RN.
--- NOTE | 2023-03-16 09:15 | NUR ---
Patient was road tested, patient is able to ambulate.
--- NOTE | 2023-03-16 09:16 | NUR ---
Called Mother, Brianne Paz states she will come to garbage pick up man patient.
--- NOTE | 2023-03-16 09:55 | NUR ---
Patient's mom at bedside.
--- NOTE | 2023-03-16 10:00 | NUR ---
IV removed, catheter intact and site benign. Applied folded 4x4 gauze and tape to stop bleeding.
[2023-03-16 10:17] VITALS: BP 131/89
--- NOTE | 2023-03-16 10:17 | NUR ---
Patient discharged with v/s stable. Written and verbal after care instructions given. Patient verbalized understanding. Ambulatory with steady gait. All questions addressed prior to discharge. Advised to follow up with PMD.
== END 2023-03-16 10:17 | disposition home or self-care (01) ==
LOC: MED 23:31
DX: R41.82 Altered mental status, unspecified (principal); F15.129 Other stimulant abuse with intoxication, unspecified; E11.9 Type 2 diabetes mellitus without complications; Z79.4 Long term (current) use of insulin; Z79.899 Other long term (current) drug therapy
CPT/HCPCS: 36415; 80053; 80305; 81001; 85025; 96360; 96361; 99285; C1758; J3480; J7030

== ENCOUNTER 2024-04-26 13:06 | Emergency (ER) | payer OTHER ==
[~2024-04-26] VITALS: Ht 160 cm; Wt 63.5 kg
[~2024-04-26 13:06] MED LIST changes: +[UNRECOGNIZED DRUG - CODE] PO; -[UNRECOGNIZED DRUG - CODE] PO
[2024-04-26 13:07] VITALS: BP 121/58; PULSE 80; RESP 18; TEMP 98.2; O2SAT 99
[2024-04-26] MEDS: BACITRACIN OINT 500 UNITS/GM PKT TP SCH (14:20)
[2024-04-26] MEDS: cephALEXin 500 MG CAP PO STA (14:22)
[2024-04-26 14:51] LABS: BASOPHILS # (AUTO) 0.1 K/uL (0.00-0.22); EOSINOPHILS # (AUTO) 0.5 K/uL (0-0.4); EOSINOPHILS % (AUTO) 5.8 % (0.0-4.0); HEMOGLOBIN 12.1 g/dL (12.0-16.0); LYMPHOCYTES # (AUTO) 1.3 K/uL (2.5-16.5); LYMPHOCYTES % (AUTO) 16.4 % (20.5-51.1); MEAN CORPUSCULAR HEMOGLOBIN 28 pg (27-31); MEAN CORPUSCULAR HGB CONC 33 g/dL (33-37); MEAN CORPUSCULAR VOLUME 86.4 fL (80-94); MONOCYTES # (AUTO) 0.6 K/uL (0.8-1.0); MONOCYTES % (AUTO) 7.1 % (1.7-9.3); NEUTROPHILS # (AUTO) 5.5 K/uL (1.8-7.7); NEUTROPHILS % (AUTO) 69.7 % (42.2-75.2); PLATELET COUNT (AUTO) 405 K/uL (140-450); RED BLOOD CELL COUNT(AUTO) 4.28 MIL/uL (4.20-5.40); WHITE BLOOD COUNT (AUTO) 7.9 K/uL (4.8-10.8)
[2024-04-26 15:06] LABS: ANION GAP 14.3 (8-16); CALCIUM 8.1 mg/dL (8.5-10.1); CARBON DIOXIDE 26.9 mmol/L (21-32); CREATININE 0.6 mg/dL (0.6-1.3); POTASSIUM 4.2 mmol/L (3.5-5.1)
[2024-04-26 15:11] LABS: ALANINE AMINOTRANSFERASE 10 U/L (12-78); ALBUMIN 3.5 g/dL (3.4-5.0); ALCOHOL, BLOOD < 3 mg/dL (<10); ALKALINE PHOSPHATASE 58 U/L (50-136); ASPARTATE AMINOTRANSFERASE 18 U/L (15-37); BILIRUBIN,DIRECT 0.1 mg/dL (0.0-0.3); SALICYLATE 3.4 mg/dL (2.8-20.0); TOTAL BILIRUBIN 0.2 mg/dL (0.0-1.0); TOTAL PROTEIN, SERUM 7.1 g/dL (6.4-8.2)
[2024-04-26 15:12] LABS: ACETAMINOPHEN < 0.5 ug/ml (10-30)
[2024-04-26 15:31] LABS: APPEARANCE,URINE CLOUDY (CLEAR); BILIRUBIN,URINE NEGATIVE (NEGATIVE); BLOOD, URINE NEGATIVE (NEGATIVE); COLOR,URINE YELLOW (YELLOW); LEUKOCYTE ESTERASE ,URINE NEGATIVE (NEGATIVE); NITRITE, URINE NEGATIVE (NEGATIVE); PROTEIN,URINE NEGATIVE (NEGATIVE); UGLUCOSE NEGATIVE (NEGATIVE); UROBILINOGEN,URINE 0.2 EU/dL (0.2 - 1)
[2024-04-26 15:45] LABS: AMPHETAMINE, URINE POSITIVE ng/ml (NEG <=1000); BARBITURATE, URINE NEGATIVE ng/ml (NEG <=200); BENZODIAZEPINE, URINE NEGATIVE ng/mL (NEG <=200); CANNABINOID, URINE NEGATIVE ng/mL (NEG <=50); COCAINE, URINE NEGATIVE ng/mL (NEG <=300); OPIATE, URINE NEGATIVE ng/mL (NEG <=2000); PHENCYCLIDINE SCREEN,URINE NEGATIVE ng/mL (NEG <=25)
[2024-04-26 19:45] VITALS: O2SAT 99
[2024-04-26 22:21] VITALS: O2SAT 99
[2024-04-26 23:21] VITALS: O2SAT 99
[2024-04-27 01:24] VITALS: O2SAT 99
[2024-04-27 02:56] VITALS: O2SAT 99
[2024-04-27 04:17] VITALS: BP 110/69; PULSE 67; RESP 18; TEMP 98; O2SAT 99
== END 2024-04-27 04:19 ==
LOC: MED 13:06
DX: F79 Unspecified intellectual disabilities (principal); S60.811A Abrasion of right wrist, initial encounter; E11.9 Type 2 diabetes mellitus without complications; Z86.69 Personal history of other diseases of the nervous system and sense organs; Z79.2 Long term (current) use of antibiotics; Z79.899 Other long term (current) drug therapy; X58.XXXA Exposure to other specified factors, initial encounter; Y93.89 Activity, other specified; Y92.89 Other specified places as the place of occurrence of the external cause; Y99.8 Other external cause status
CPT/HCPCS: 36415; 80048; 80076; 80305; 81003; 81025; 82947; 85025; 90471; 90715; 99285; G0480; G0482

== ENCOUNTER 2024-06-03 12:49 | Emergency (ER) | payer OTHER ==
[~2024-06-03] VITALS: Ht 160 cm; Wt 65.8 kg
[2024-06-03 12:56] VITALS: BP 126/81; PULSE 133; RESP 20; TEMP 98.8; O2SAT 97
[2024-06-03 14:21] LABS: BASOPHILS # (AUTO) 0.1 K/uL (0.00-0.22); BASOPHILS % (AUTO) 0.4 % (0.0-2.0); EOSINOPHILS % (AUTO) 0.1 % (0.0-4.0); HEMATOCRIT 34.8 % (36-48); HEMOGLOBIN 11.5 g/dL (12.0-16.0); LYMPHOCYTES % (AUTO) 7.9 % (20.5-51.1); MEAN CORPUSCULAR HEMOGLOBIN 28 pg (27-31); MEAN CORPUSCULAR HGB CONC 33 g/dL (33-37); MEAN CORPUSCULAR VOLUME 85.2 fL (80-94); MONOCYTES # (AUTO) 1.4 K/uL (0.8-1.0); MONOCYTES % (AUTO) 11.2 % (1.7-9.3); NEUTROPHILS # (AUTO) 9.9 K/uL (1.8-7.7); NEUTROPHILS % (AUTO) 80.4 % (42.2-75.2); PLATELET COUNT (AUTO) 325 K/uL (140-450); RED BLOOD CELL COUNT(AUTO) 4.09 MIL/uL (4.20-5.40); RED CELL DISTRIBUTION WIDTH 17.6 % (11.6-13.7); WHITE BLOOD COUNT (AUTO) 12.3 K/uL (4.8-10.8)
[2024-06-03 14:33] LABS: ANION GAP 20.2 (8-16); CALCIUM 8.3 mg/dL (8.5-10.1); CARBON DIOXIDE 18.6 mmol/L (21-32); CREATININE 0.8 mg/dL (0.6-1.3); POTASSIUM 3.8 mmol/L (3.5-5.1)
[2024-06-03 14:44] LABS: ALANINE AMINOTRANSFERASE 12 U/L (12-78); ALBUMIN 3.7 g/dL (3.4-5.0); ALCOHOL, BLOOD < 3 mg/dL (<10); ALKALINE PHOSPHATASE 57 U/L (50-136); ASPARTATE AMINOTRANSFERASE 28 U/L (15-37); BILIRUBIN,DIRECT 0.1 mg/dL (0.0-0.3); TOTAL BILIRUBIN 0.5 mg/dL (0.0-1.0); TOTAL PROTEIN, SERUM 7.4 g/dL (6.4-8.2)
[2024-06-03 14:48] LABS: SALICYLATE < 2.8 mg/dL (2.8-20.0)
[2024-06-03 18:00] VITALS: BP 126/81; PULSE 133; RESP 20; TEMP 98.8; O2SAT 97
== END 2024-06-03 18:00 | disposition left against medical advice (07) ==
LOC: MED 12:49
DX: R41.82 Altered mental status, unspecified (principal); R45.1 Restlessness and agitation; F15.10 Other stimulant abuse, uncomplicated; E11.9 Type 2 diabetes mellitus without complications; F20.9 Schizophrenia, unspecified; Z86.69 Personal history of other diseases of the nervous system and sense organs; Z79.899 Other long term (current) drug therapy
CPT/HCPCS: 36415; 80048; 80076; 84484; 85025; 93005; 99284; G0480; G0482